=== PATIENT | male | born 1975 | race Caucasian/White ===

== ENCOUNTER 2016-07-06 21:27 | Inpatient (IN) | payer OTHER ==
[~2016-07-06] VITALS: Ht 188 cm; Wt 106.2 kg
[2016-07-06 21:41] LABS: BASOPHILS % (AUTO) 1 % (0-10); EOSINOPHILS # (AUTO) 0.1 10^3/uL (0.0-0.3); EOSINOPHILS % (AUTO) 1 % (0-10); LYMPHOCYTES # (AUTO) 1.3 X 10^3 (1.0-4.0); LYMPHOCYTES % (AUTO) 21 % (12-44); MEAN CORPUSCULAR HEMOGLOBIN 30 PG (25-34); MEAN CORPUSCULAR HGB CONC 36 G/DL (32-36); MEAN CORPUSCULAR VOLUME 81 FL (80-99); MEAN PLATELET VOLUME 10.4 FL (7.4-10.4); MONOCYTES # (AUTO) 0.6 X 10^3 (0.0-1.0); MONOCYTES % (AUTO) 10 % (0-12); NEUTROPHILS # (AUTO) 4.2 X 10^3 (1.8-7.8); NEUTROPHILS % (AUTO) 67 % (42-75); PLATELET COUNT 237 10^3/uL (130-400); RED BLOOD COUNT 5.74 10^6/uL (4.35-5.85); RED CELL DISTRIBUTION WIDTH 12.5 % (10.0-14.5); WHITE BLOOD COUNT 6.2 10^3/uL (4.3-11.0)
[2016-07-06] MEDS ORDERED: ASPIRIN 81 MG CHEW (CHILDREN'S ASA) PO ONE (21:45)
[2016-07-06] MEDS ORDERED: NS IV 1000 ML 1,000 ML IV ONE (21:52)
[2016-07-06 22:00] LABS: INR 0.9 (0.8-1.4); PROTHROMBIN TIME PATIENT 12.3 SEC (12.2-14.7)
[2016-07-06 22:04] LABS: ALANINE AMINOTRANSFERASE 106 U/L (0-55); ALBUMIN 4.6 G/DL (3.2-4.5); ANION GAP 12 MMOL/L (5-14); ASPARTATE AMINO TRANSFERASE 48 U/L (5-34); BILIRUBIN,TOTAL 0.5 MG/DL (0.1-1.0); BLOOD UREA NITROGEN 10 MG/DL (7-18); BUN/CREATININE RATIO 8; CALCIUM 9.4 MG/DL (8.5-10.1); CARBON DIOXIDE 26 MMOL/L (21-32); CHLORIDE 95 MMOL/L (98-107); CREATININE SERUM 1.22 MG/DL (0.60-1.30); GFR ESTIMATED > 60; MAGNESIUM 2.4 MG/DL (1.8-2.4); POTASSIUM 4.3 MMOL/L (3.6-5.0); SODIUM 133 MMOL/L (135-145); TOTAL PROTEIN 7.2 G/DL (6.4-8.2)
--- NOTE | 2016-07-06 22:04 | Diagnostic Imaging Report ---
INDICATION: Chest pain COMPARISON: None FINDINGS: Single frontal view of the chest is obtained. Heart size is normal. The pulmonary vessels appear unremarkable. There is no pneumothorax, mediastinal widening or pleural fluid demonstrated. The lungs are clear. IMPRESSION: Negative chest Dictated by: Dictated on workstation # [id number]
[2016-07-06 22:08] LABS: GLUCOSE 491 MG/DL (70-105)
[2016-07-06 22:10] LABS: MYOGLOBIN SERUM 37.3 NG/ML (10.0-92.0)
[2016-07-06] MEDS ORDERED: inSUlin (REGULAR) HUMAN 1 UNIT/0.01 ML (CHARGE PER UNIT) IV ONE (22:15)
--- NOTE | 2016-07-06 22:59 | ED Chest Pain ---
General Chief Complaint: Chest Pain Stated Complaint: CHEST PAIN Nursing Triage Note: Amb to ED 8 as arrived POV from [facility]. Chest Pain c/o since 1930 after eating cereal an hr prior. Sx nausea and vomited twice about an hr after chest pain. No PCP. No medical hx Nursing Sepsis Screen: No Definite Risk Source: patient Exam Limitations: no limitations History of Present Illness Time seen by provider: 21:31 Initial Comments This gentleman presents to emergency room with complaints of chest pain intermittently since 19:30. He describes it "like being hit in the chest". It improves with deep breathing and is worse with activity. He was sitting watching TV at onset. He vomited 2. He had a pain in his left arm and numbness between the shoulder blades. He is asymptomatic on assessment except for numbness between the shoulders. He denies smoking history but does chew tobacco. He rarely drinks alcohol. He reports the chest pain started before the nausea and vomiting. Location is upper central and was rated as 6/10 at its worst. He has no known health problems but is noted to be significantly hypertensive and tachycardic on arrival. Allergies and Home Medications Allergies Coded Allergies: No Known Drug Allergies (Unverified , 07/06/16) Home Medications No Active Prescriptions or Reported Meds Review of Systems Constitutional: no symptoms reported EENTM: No Symptoms Reported Respiratory: No Symptoms Reported Cardiovascular: See HPI Gastrointestinal: See HPI Genitourinary: No Symptoms Reported Musculoskeletal: see HPI Skin: no symptoms reported Psychiatric/Neurological: No Symptoms Reported Endocrine: No Symptoms Reported Past Qpqavkc-Tmfunp-Vvutwi Hx Patient Social History Alcohol Use: Occasionally Uses Recreational Drug Use: No Smoking Status: Never a Smoker Type Used: Smokeless Tobacco Recent Foreign Travel: No Contact w/Someone Who Travel: No Recent Infectious Disease Expo: No Recent Hopitalizations: No Physical Abuse Screen: No Sexual Abuse: No Seasonal Allergies Seasonal Allergies: No Surgeries HX Surgeries: No Respiratory Hx Respiratory Disorders: No Cardiovascular Hx Cardiac Disorders: No Neurological Hx Neurological Disorders: No Reproductive System Hx Reproductive Disorders: No Genitourinary Hx Genitourinary Disorders: No Gastrointestinal Hx Gastrointestinal Disorders: No Musculoskeletal Hx Musculoskeletal Disorders: No Endocrine Hx Endocrine Disorders: No HEENT HX ENT Disorders: No Cancer Hx Cancer: No Psychosocial Hx Psychiatric Problems: No Integumentary HX Skin/Integumentary Disorder: No Blood Transfusions Hx Blood Disorders: No Family Medical History Significant Family History: No Pertinent Family Hx Physical Exam Vital Signs Vital Sign - Last 12Hours Capillary Refill : Less Than 3 Seconds General Appearance: No Apparent Distress WD/WN Obese HEENT: PERRL/EOMI Normal ENT Inspection Other (oropharynx somewhat dry) Neck: Normal Inspection Supple Respiratory: Chest Non Tender Lungs Clear Normal Breath Sounds No Accessory Muscle Use No Respiratory Distress Cardiovascular: No Edema No Murmur Normal Peripheral Pulses Tachycardia ( regular) Gastrointestinal: Normal Bowel Sounds Non Tender Soft Extremity: Normal Inspection Non Tender No Calf Tenderness No Pedal Edema Neurologic/Psychiatric: Alert Oriented x3 No Motor/Sensory Deficits Normal Mood/Affect home health cna II-XII Norm as Tested Skin: Normal Color Warm/Dry Progress/Results/Core Measures Results/Orders Lab Results Laboratory Tests Test 07/06/16 21:30 07/06/16 22:46 Range/Units Activated Partial Thromboplast Time 25 24-35 SEC Alanine Aminotransferase (ALT/SGPT) 106 H 0-55 U/L Albumin 4.6 H 3.2-4.5 G/DL Alkaline Phosphatase 101 40-136 U/L Anion Gap 12 5-14 MMOL/L Aspartate Amino Transf (AST/SGOT) 48 H 5-34 U/L BUN/Creatinine Ratio 8 Basophils # (Auto) 0.0 0.0-0.1 10^3/uL Basophils (%) (Auto) 1 0-10 % Blood Urea Nitrogen 10 7-18 MG/DL Calcium Level 9.4 8.5-10.1 MG/DL Carbon Dioxide Level 26 21-32 MMOL/L Chloride Level 95 L 98-107 MMOL/L Creatinine 1.22 0.60-1.30 MG/DL D-Dimer < 0.27 0.00-0.49 UG/ML Eosinophils # (Auto) 0.1 0.0-0.3 10^3/uL Eosinophils (%) (Auto) 1 0-10 % Estimat Glomerular Filtration Rate > 60 Glucose Level 491 *H 70-105 MG/DL Hematocrit 47 40-54 % Hemoglobin 17.0 13.3-17.7 G/DL INR Comment 0.9 0.8-1.4 Lymphocytes # (Auto) 1.3 1.0-4.0 X 10^3 Lymphocytes (%) (Auto) 21 12-44 % Magnesium Level 2.4 1.8-2.4 MG/DL Mean Corpuscular Hemoglobin 30 25-34 PG Mean Corpuscular Hemoglobin Concent 36 32-36 G/DL Mean Corpuscular Volume 81 80-99 FL Mean Platelet Volume 10.4 7.4-10.4 FL Monocytes # (Auto) 0.6 0.0-1.0 X 10^3 Monocytes (%) (Auto) 10 0-12 % Myoglobin 37.3 10.0-92.0 NG/ML Neutrophils # (Auto) 4.2 1.8-7.8 X 10^3 Neutrophils (%) (Auto) 67 42-75 % Platelet Count 237 130-400 10^3/uL Potassium Level 4.3 3.6-5.0 MMOL/L Prothrombin Time 12.3 12.2-14.7 SEC Red Blood Count 5.74 4.35-5.85 10^6/uL Red Cell Distribution Width 12.5 10.0-14.5 % Sodium Level 133 L 135-145 MMOL/L TSH [place] Testing 0.75 0.35-4.94 UIU/ML Total Bilirubin 0.5 0.1-1.0 MG/DL Total Protein 7.2 6.4-8.2 G/DL Troponin I < 0.30 <0.30 NG/ML White Blood Count 6.2 4.3-11.0 10^3/uL Glucometer 265 H 70-110 MG/DL My Orders Orders-BERNARDO DALEY MD Cbc With Automated Diff (07/06/16 21:36) Magnesium (07/06/16 21:36) Chest 1 View, Ap/Pa Only (07/06/16 21:36) Ekg Tracing (07/06/16 21:36) Cardiac Profile 1 (07/06/16 21:36) Comprehensive Metabolic Panel (07/06/16 21:36) Myoglobin Serum (07/06/16 21:36) Protime With Inr (07/06/16 21:36) Partial Thromboplastin Time (07/06/16 21:36) O2 (07/06/16 21:36) Monitor-Rhythm Ecg Trace Only (07/06/16 21:36) Lipid Panel (07/07/16 06:00) Aspirin Chewable Tablet (Baby Aspirin Ch (07/06/16 21:45) Saline Lock/Iv-Start (07/06/16 21:36) Fibrin Degradation Products (07/06/16 21:52) Thyroid Analyzer (07/06/16 21:52) Ns Iv 1000 Ml (Sodium Chloride 0.9%) (07/06/16 21:52) Insulin (Regular) Human (Humulin R (Per (07/06/16 22:15) Metoprolol Tartrate (Ir) Tab (Lopressor (07/06/16 23:00) Enoxaparin Injection (Lovenox Injection) (07/06/16 23:00) Hemoglobin A1c (07/06/16 22:52) Medications Given in ED Current Medications Medications Dose Ordered Sig/Cayden Route Start Time Stop Time Status Last Admin Dose Admin Aspirin 324 mg 324 mg ONCE ONCE PO 07/06/16 21:45 07/06/16 21:46 DC 07/06/16 21:44 324 MG Enoxaparin Sodium 100 mg ONCE ONCE SC 07/06/16 23:00 07/06/16 23:01 DC 07/06/16 22:54 100 MG Insulin Human Regular 5 unit ONCE ONCE IV 07/06/16 22:15 07/06/16 22:16 DC 07/06/16 22:15 5 UNIT Metoprolol Tartrate 25 mg ONCE ONCE PO 07/06/16 23:00 07/06/16 23:01 DC 07/06/16 22:54 25 MG Sodium Chloride 1,000 ml @ 0 mls/hr Q0M ONCE IV 07/06/16 21:52 07/06/16 21:53 DC 07/06/16 22:04 999 MLS/HR Vital Signs/I&O Vital Sign - Last 12Hours 07/06/16 07/06/16 07/06/16 21:27 21:27 22:54 Temp 98.4 98.4 Pulse 101 Resp 16 B/P 164/126 Pulse Ox 98 O2 Delivery Room Air Room Air Blood Pressure Mean: 139 Point of Care Testing Finger Stick Blood Glucose: 265 Blood Glucose Action Taken: reported to Dr Daley Progress Note : Progress Note patient had no further chest pain during his ER visit. He was administered aspirin. He was found to have new onset diabetes with significant hyperglycemia. He was administered 5 units of insulin by IV route along with a liter of IV fluids which decreased his blood sugar to 265. He received Lopressor 25 mg orally and a therapeutic dose of Lovenox as advised by Dr. Stiles. Heart rate and blood pressure were improving during his ER stay. He was admitted with the chest pain protocol orders set. He was felt to be hypovolemic as his mouth was dry and he was tachycardic. He likely had diuresed due to his hyperglycemia. ECG Initial ECG Impression Date: Jul 06, 2016 Initial ECG Impression Time: 21:39 Initial ECG Rate: 100 Initial ECG Rhythm: S.Tach Diagnostic Imaging Diagonstic Imaging: Xray Plain Films/CT/US/NM/MRI: chest Comments NAME: [facility] REC#: [id number] PT STATUS: REG ER : 1975 PHYSICIAN: BERNARDO DALEY MD ADMIT DATE: 07/06/16/ER Signed Date of Exam: 07/06/16 CHEST 1 VIEW, AP/PA ONLY INDICATION: Chest pain COMPARISON: None FINDINGS: Single frontal view of the chest is obtained. Heart size is normal. The pulmonary vessels appear unremarkable. There is no pneumothorax, mediastinal widening or pleural fluid demonstrated. The lungs are clear. IMPRESSION: Negative chest Dictated by: Dictated on workstation # [id number] Dict: 07/06/[id number] Trans: 07/06/162204 [facility] [phone] Interpreted by: TIANA AVALOS DO Electronically signed by:TIANA AVALOS DO 07/06/162206 Departure Communication Time/Spoke to Admitting Phy: 22:[address] Jaeger Time/Spoke to Consulting Physi: 22:40 Communication/Consulting Dr. Stiles Impression Impression: Primary Impression: Chest pain Qualified Code: R07.9 - Chest pain, unspecified Additional Impressions: Hypertensive urgency Diabetes mellitus, new onset Hyperglycemia Hypovolemia Disposition: ADMITTED INPATIENT Condition: Improved Decision to Admit Reason: Admit from ER (General) Decision to Admit/Date: Jul 06, 2016 Time/Decision to Admit Time: 22:30 Departure-Patient Inst. Scripts No Active Prescriptions or Reported Meds BERNARDO DALEY MD Jul 06, 2016 22:59
[2016-07-06] MEDS ORDERED: ENOXAPARIN 100 MG/1 ML (LOVENOX) SYR SC ONE (23:00)
[2016-07-06] MEDS ORDERED: meTOprolol TARTRATE 25 MG (LOPRESSOR) TABLET PO ONE (23:00)
[2016-07-06 23:30] VITALS: BP 142/111
[2016-07-06 23:35] VITALS: BP 142/111
[2016-07-06 23:45] VITALS: BP 144/104
[2016-07-06] MEDS ORDERED: CATHETER FLUSH 10 ML SYR IV PRN (23:45)
[2016-07-06] MEDS ORDERED: NITROGLYCERIN SUBLINGUAL 0.4 MG TAB (NITROSTAT) SL PRN (23:45)
[2016-07-06] MEDS ORDERED: ONDANSETRON 4 MG/2 ML (SDV) Z0FRAN IV PRN (23:45)
[2016-07-07] VITALS (27 sets, daily range): BP systolic 100–156; BP diastolic 63–112
[2016-07-07] MEDS: NS IV 1000 ML 1,000 ML IV SCH ×4 (00:02→18:04)
[2016-07-07 04:02] LABS: ANION GAP 9 MMOL/L (5-14); BLOOD UREA NITROGEN 8 MG/DL (7-18); BUN/CREATININE RATIO 9; CALCIUM 8.4 MG/DL (8.5-10.1); CARBON DIOXIDE 26 MMOL/L (21-32); CHLORIDE 101 MMOL/L (98-107); CREATINE KINASE 174 U/L (30-200); CREATININE SERUM 0.87 MG/DL (0.60-1.30); GFR ESTIMATED > 60; GLUCOSE 216 MG/DL (70-105); POTASSIUM 3.9 MMOL/L (3.6-5.0); SODIUM 136 MMOL/L (135-145)
[2016-07-07 04:14] LABS: TROPONIN I 2.56 NG/ML (<0.30)
[2016-07-07 04:24] LABS: CHOLESTEROL 200 MG/DL (< 200); DIRECT LDL 147 MG/DL (1-129); TRIGLYCERIDES 202 MG/DL (<150); VLDL CHOLESTEROL 40 MG/DL (5-40)
[2016-07-07] MEDS: CATHETER FLUSH 10 ML SYR IV SCH ×3 (06:00→21:02)
[2016-07-07] MEDS: inSUlin (REGULAR) HUMAN 1 UNIT/0.01 ML (CHARGE PER UNIT) SC SCH ×4 (06:00→20:51)
[2016-07-07] MEDS ORDERED: FLU TRIvalent (5 YOA+) 2016-17 (AFLURIA) 0.5 ML IM ONE (07:15)
[2016-07-07] MEDS: meTOprolol TARTRATE 25 MG (LOPRESSOR) TABLET PO SCH ×2 (07:49→20:52)
--- NOTE | 2016-07-07 08:44 | Consultation-Cardiology ---
HPI-Cardiology Cardiology Consultation Date of Consultation 07/07/16 Date of Admission Indication: chest pain HPI 40-year-old gentleman with no significant past medical history, was in his usual state of health until yesterday evening when he started having recurrent episodes of chest pain described it as dull achiness in the upper retrosternal area radiating to the back and shoulder. Continue to have waxing and waning pain until they came to the emergency room, patient will is feeling better at this time, EKG did not show any acute changes. He was noted to have elevated troponin level. Denied any nausea or vomiting, had slight diaphoresis. No syncope or near syncopal episodes, no similar episodes in the past. Home Medications & Allergies Allergies: Coded Allergies: No Known Drug Allergies (Unverified , 07/06/16) Home Medication List Reviewed: Yes does not take any medication UXC-Apqlju-Wmpfwj Hx Patient Social History Alcohol Use: Occasionally Uses Recreational Drug Use: No Smoking Status: Former Smoker Type Used: Cigarettes, Smokeless Tobacco Recent Foreign Travel: No Recent Infectious Disease Expo: No Recent Hopitalizations: No Physical Abuse Screen: No Sexual Abuse: No Past Medical History no known past medical or surgical history Family Medical History Significant Family History: No Pertinent Family Hx Family Medical Hx patient is adopted, no known family history Family History: Not obtainable due to adoption Constitutional: see HPINo chills, diaphoresisNo dizziness, No fever, No malaise, No weakness, No weight gain, No weight loss, No other EENTM: no symptoms reported see HPI Respiratory: no symptoms reported see HPI Cardiovascular: see HPI chest painNo edema, No Hx of Intervention, No palpitations, No syncope, No vascular heart diseas, No other Gastrointestinal: no symptoms reported see HPI Genitourinary: no symptoms reported see HPI Musculoskeletal: no symptoms reported see HPI Skin: no symptoms reported see HPI Psychiatric/Neurological: No Symptoms Reported See HPI Reviewed Test Results Reviewed Test Results Lab Laboratory Tests Test 07/06/16 21:30 07/06/16 22:46 07/07/16 03:30 07/07/16 05:52 Range/Units Activated Partial Thromboplast Time 25 24-35 SEC Alanine Aminotransferase (ALT/SGPT) 106 H 0-55 U/L Albumin 4.6 H 3.2-4.5 G/DL Alkaline Phosphatase 101 40-136 U/L Anion Gap 12 9 5-14 MMOL/L Aspartate Amino Transf (AST/SGOT) 48 H 5-34 U/L BUN/Creatinine Ratio 8 9 Basophils # (Auto) 0.0 0.0-0.1 10^3/uL Basophils (%) (Auto) 1 0-10 % Blood Urea Nitrogen 10 8 7-18 MG/DL Calcium Level 9.4 8.4 L 8.5-10.1 MG/DL Carbon Dioxide Level 26 26 21-32 MMOL/L Chloride Level 95 L 101 98-107 MMOL/L Creatinine 1.22 0.87 0.60-1.30 MG/DL D-Dimer < 0.27 0.00-0.49 UG/ML Eosinophils # (Auto) 0.1 0.0-0.3 10^3/uL Eosinophils (%) (Auto) 1 0-10 % Estimat Glomerular Filtration Rate > 60 > 60 Glucose Level 491 *H 216 H 70-105 MG/DL Hematocrit 47 40-54 % Hemoglobin 17.0 13.3-17.7 G/DL Hemoglobin A1c 9.8 H 4.5-6.2 % INR Comment 0.9 0.8-1.4 Lymphocytes # (Auto) 1.3 1.0-4.0 X 10^3 Lymphocytes (%) (Auto) 21 12-44 % Magnesium Level 2.4 1.8-2.4 MG/DL Mean Corpuscular Hemoglobin 30 25-34 PG Mean Corpuscular Hemoglobin Concent 36 32-36 G/DL Mean Corpuscular Volume 81 80-99 FL Mean Platelet Volume 10.4 7.4-10.4 FL Monocytes # (Auto) 0.6 0.0-1.0 X 10^3 Monocytes (%) (Auto) 10 0-12 % Myoglobin 37.3 10.0-92.0 NG/ML Neutrophils # (Auto) 4.2 1.8-7.8 X 10^3 Neutrophils (%) (Auto) 67 42-75 % Platelet Count 237 130-400 10^3/uL Potassium Level 4.3 3.9 3.6-5.0 MMOL/L Prothrombin Time 12.3 12.2-14.7 SEC Red Blood Count 5.74 4.35-5.85 10^6/uL Red Cell Distribution Width 12.5 10.0-14.5 % Sodium Level 133 L 136 135-145 MMOL/L TSH [place] Testing 0.75 0.35-4.94 UIU/ML Total Bilirubin 0.5 0.1-1.0 MG/DL Total Protein 7.2 6.4-8.2 G/DL Troponin I < 0.30 2.56 *H <0.30 NG/ML White Blood Count 6.2 4.3-11.0 10^3/uL Glucometer 265 H 169 H 70-110 MG/DL Cholesterol Level 200 < 200 MG/DL HDL Cholesterol 28 L 40-60 MG/DL LDL Cholesterol Direct 147 H 1-129 MG/DL Total Creatine Kinase 174 30-200 U/L Triglycerides Level 202 H <150 MG/DL VLDL Cholesterol 40 5-40 MG/DL Physical Exam Vital Signs Vital Sign - Last 12Hours Capillary Refill : Less Than 3 Seconds General Appearance: No Apparent Distress WD/WN Eyes: Bilateral Eye EOMI, Bilateral Eye Normal Inspection, Bilateral Eye PERRL HEENT: PERRL/EOMI TMs Normal Normal ENT Inspection Pharynx Normal Neck: Full Range of Motion Normal Inspection Non Tender Supple Carotid Bruit Respiratory: Chest Non Tender Lungs Clear Normal Breath Sounds No Accessory Muscle Use No Respiratory Distress Cardiovascular: Regular Rate, Rhythm No Edema No Gallop No JVD No Murmur Normal Peripheral Pulses Gastrointestinal: Normal Bowel Sounds No Organomegaly No Pulsatile Mass Non Tender Soft Back: Normal Inspection No CVA Tenderness No Vertebral Tenderness Extremity: Normal Capillary Refill Normal Inspection Normal Range of Motion Non Tender No Calf Tenderness No Pedal Edema Neurologic/Psychiatric: Alert Oriented x3 No Motor/Sensory Deficits Normal Mood/Affect Skin: Normal Color Warm/Dry Lymphatic: No Adenopathy A/P-Cardiology Admission Diagnosis Chest pain nonspecific etiology Diabetes mellitus Tobaccoism Shortness of breath Assessment/Plan Chest pain nonspecific etiology, atypical in presentation, patient had no acute EKG changes, had elevated troponin level. Had a long discussion with the patient. The patient was offered a stress test versus cardiac catheterization, he is concerned about the elevated troponin and his significant chest pain that occurred yesterday. Understand cardiac catheterization, understand all the risks and benefits and prefer to proceed with a cardiac catheterization. Shortness of breath, during chest pain, reporting improvement at this time Diabetes mellitus, patient does not have history of diabetes, noted to have significant hyperglycemia, managed by primary care physician. Tobacco use product, patient chewed tobacco, educated on avoiding tobacco products. Clinical Quality Measures AMI/AHF: ASA po Prior to arrival: No DVT/VTE Risk/Contraindication: Risk Factor Score Per Nursin RFS Level Per Nursing on Admit: 1=Low/No VTE PPX LEONARDO ROSS MD Jul 07, 2016 08:44
[2016-07-07] MEDS ORDERED: NS IV 1000 ML 1,000 ML IV SCH (08:45)
--- NOTE | 2016-07-07 08:46 | Cardiac Procedure Note-CS/ASA ---
Pre-Procedure Note Pre-Op Procedure Note H&P Reviewed The H&P was reviewed, patient examined and no changes noted. Date H&P Reviewed: Jul 07, 2016 Time H&P Reviewed: 08:45 Conscious Sedation Pre-Proced Time Reviewed: 08:45 ASA Class: 3 Airway Mallampati Classification: ([place] appropriate class) I. II. III, IV Lungs Heart ASA score ASA 1: a normal healthy patient ASA 2: a patient with a mild systemic disease (mid diabetes, controlled hypertension, obesity x ASA 3: a patient with a severe systemic disease that limits activity (angina , COPD, prior Myocardial infarction) ASA 4: a patient with an incapacitating disease that is a constant threat to life (CHF, renal failure) ASA 5: a moribund patient not expected to survive 24 hrs. (ruptured aneurysm) ASA 6: a declared brain patient whose organs are being harvested. For emergent operations, add the letter E after the classification Grade 3 Sedation Plan: Analgesia, Amnesia, Plan communicated to team members, Discussed options with patient/fam, Discussed risks with patient/fam Note The patient is an appropriate candidate to undergo the planned procedure, sedation, and anesthesia. The patient immediately re-assessed prior to indication. LEONARDO ROSS MD Jul 07, 2016 08:46
[2016-07-07] MEDS ORDERED: ASPIRIN E.C. 325 MG (ECOTRIN) TABLET PO SCH (09:00)
--- NOTE | 2016-07-07 09:29 | History & Physical-Hospitalist ---
LESLY PERES MED STUDENT 07/07/16 0929: HPI History of Present Illness: HPI/Chief Complaint CC: chest pain HPI: Mr. Plunkett is a 40yoM with no significant PMH who was admitted overnight for chest pain and elevated troponin. He started experiencing a sharp 7/10 chest pain that came and went, with no association with activity at 1930 last night. He did not attempt to take any medications. 30 minutes after this he became nauseas and had non-bloody emesis one time. Following this he called his parents who brought him to the ED from [place]. He has never had similar symptoms before, and states he has been healthy. He was given aspirin in the ED. His labs were significant for a troponin of 2.56 and A1C >9. He has not seen a physician since 2002 when he broke his foot. He does not currently have a PCP. He does not use any particular pharmacy since he does not take medications, but he would like future meds sent to [facility] in [place]. He currently has a job at a [employer], but does not have insurance. He will need assistance with future prescriptions following this hospital stay. Source: patient Exam Limitations: no limitations Date Seen 07/07/16 Attending Physician Ray Jaeger MD PCP No,Local Physician Referring Physician Date of Admission Jul 07, 2016 at 08:20 Home Medications & Allergies Home Medications Reviewed patient Home Medication Reconciliation Form Allergies Coded Allergies: No Known Drug Allergies (Unverified , 07/06/16) Past Jncvngr-Tpdlko-Gjcaug Hx Patient Social History Marrital Status: single Employed/Student: employed ([employer]) Alcohol Use: Occasionally Uses (1 drink every 6 months) Recreational Drug Use: No Smoking Status: Former Smoker Type Used: Cigarettes, Smokeless Tobacco (currently uses smokeless tobacco) Physical Abuse Screen: No Sexual Abuse: No Recent Foreign Travel: No Contact w/other who traveled: No Recent Hopitalizations: No Recent Infectious Disease Expo: No Seasonal Allergies Seasonal Allergies: No Surgeries HX Surgeries: No Respiratory Hx Respiratory Disorders: No Cardiovascular Hx Cardiovascular Disorders: No Neurological Hx Neurological Disorders: No Reproductive System Hx Reproductive Disorders: No Genitourinary Hx Genitourinary Disorders: No Gastrointestinal Hx Gastrointestinal Disorders: No Musculoskeletal Hx Musculoskeletal Disorders: Yes Musculoskeletal Disorders: Fractures (foot fracture 2002) Endocrine Hx Endocrine Disorders: No HEENT HX ENT Disorders: No Cancer Hx Cancer: No Psychosocial Hx Psychiatric Problems: No Integumentary HX Skin/Integumentary Disorder: No Blood Transfusions Hx Blood Disorders: No Family Medical History Significant Family History: No Pertinent Family Hx (adopted and unknown) Family Hx: Not obtainable due to adoption Review of Systems Constitutional: No chills, No diaphoresis, No fever EENTM: no symptoms reported Respiratory: No dyspnea on exertion, No short of breath Cardiovascular: chest pain Gastrointestinal: No abdominal pain, No constipation, No diarrhea, nausea vomiting Genitourinary: No dysuria, No frequency, No hematuria Musculoskeletal: No back pain, No joint swelling, No muscle pain Skin: no symptoms reported Psychiatric/Neurological: No Symptoms Reported All Other Systems Reviewed Negative Unless Noted: Yes Physical Exam Physical Exam Vital Signs Vital Sign - Last 12Hours Capillary Refill : Less Than 3 Seconds General Appearance: No Apparent Distress WD/WN HEENT: PERRL/EOMI Normal ENT Inspection Pharynx Normal Neck: Full Range of Motion Normal Inspection Non Tender Supple Respiratory: Chest Non Tender Lungs Clear Normal Breath Sounds No Accessory Muscle Use No Respiratory Distress Cardiovascular: Regular Rate, Rhythm No Edema No Gallop No JVD No Murmur Normal Peripheral Pulses Gastrointestinal: Normal Bowel Sounds No Organomegaly Non Tender Soft Rectal: Deferred Back: Normal Inspection No CVA Tenderness Extremity: Normal Capillary Refill Normal Range of Motion Non Tender No Calf Tenderness Neurologic/Psychiatric: Alert Oriented x3 No Motor/Sensory Deficits Normal Mood/Affect Skin: Normal Color Warm/Dry Lymphatic: No Adenopathy Results Results/Procedures Lab Laboratory Tests 07/06/16 21:30 07/07/16 03:30 Radiology chest xray: Negative chest Assessment/Plan Admission Diagnosis NSTEMI, DM type II Assessment and Plan 40yoM with previous unknown medical history with NSTEMI and new diagnosed DM admitted to ICU. 1. NSTEMI -troponin 2.56, negative EKG, chest pain stopped at 0000. -patient hemodynamically stable, give IVF as needed -Aspirin given in ED -going [facility] today with Dr. Stiles, cardiology following -oxygen as needed, morphine and nitro as needed for chest pain -will likely need statin therapy, beta dashawn, and antiplatelet therapy before discharge 2. DM II -newly diagnosed this admission -will use insulin with correction factor until not NPO -will begin low dose glyburide as outpatient -will set patient up with PCP for further management of diabetes 3. Socioeconomic status -lives alone and is independent -patient currently without insurance, but willing to obtain insurance soon -patient might have difficulty affording multiple medications as an outpatient -will need to use generic brands as often as possible -social work consult needed 4. Smokeless tobacco use Clinical Quality Measures AMI/AHF: ASA po Prior to arrival: No DVT/VTE Risk/Contraindication: Risk Factor Score Per Nursin RFS Level Per Nursing on Admit: 1=Low/No VTE PPX KENDY TORREZ DO 07/07/16 1054: HPI History of Present Illness: HPI/Chief Complaint Noted above information and confirmed by patient. Source: patient Exam Limitations: no limitations Home Medications & Allergies Allergies Coded Allergies: No Known Drug Allergies (Unverified , 07/06/16) Past Yszweln-Eseico-Dbloqe Hx Patient Social History Marrital Status: single Employed/Student: employed ([employer]) Alcohol Use: Occasionally Uses (1 drink every 6 months) Surgeries HX Surgeries: No Respiratory Hx Respiratory Disorders: No Cardiovascular Hx Cardiovascular Disorders: No Neurological Hx Neurological Disorders: No Genitourinary Hx Genitourinary Disorders: No Gastrointestinal Hx Gastrointestinal Disorders: No Musculoskeletal Hx Musculoskeletal Disorders: No Endocrine Hx Endocrine Disorders: No HEENT HX ENT Disorders: No Loss of Vision: Denies Cancer Hx Cancer: No Psychosocial Hx Psychiatric Problems: No Integumentary HX Skin/Integumentary Disorder: No Family Medical History Significant Family History: No Pertinent Family Hx (adopted and unknown) Family Hx: Not obtainable due to adoption Review of Systems Constitutional: see HPI EENTM: no symptoms reported Respiratory: no symptoms reported Cardiovascular: chest pain Gastrointestinal: nausea vomiting Genitourinary: no symptoms reported Musculoskeletal: no symptoms reported Skin: no symptoms reported Psychiatric/Neurological: No Symptoms Reported All Other Systems Reviewed Negative Unless Noted: Yes Physical Exam Physical Exam Vital Signs Vital Sign - Last 12Hours General Appearance: No Apparent Distress WD/WN Eyes: Bilateral Eye Normal Inspection, Bilateral Eye PERRL HEENT: PERRL/EOMI Normal ENT Inspection Pharynx Normal Neck: Full Range of Motion Normal Inspection Non Tender Supple Carotid Bruit Respiratory: Chest Non Tender Lungs Clear Normal Breath Sounds No Accessory Muscle Use No Respiratory Distress Cardiovascular: Regular Rate, Rhythm No Edema No Gallop No JVD No Murmur Normal Peripheral Pulses Gastrointestinal: Normal Bowel Sounds No Organomegaly No Pulsatile Mass Non Tender Soft Back: Normal Inspection No CVA Tenderness No Vertebral Tenderness Extremity: Normal Capillary Refill Normal Inspection Normal Range of Motion Non Tender No Calf Tenderness No Pedal Edema Neurologic/Psychiatric: Alert Oriented x3 No Motor/Sensory Deficits Normal Mood/Affect Skin: Normal Color Warm/Dry Lymphatic: No Adenopathy Results Results/Procedures Lab Laboratory Tests 07/06/16 21:30 07/07/16 03:30 Assessment/Plan Admission Diagnosis NSTEMI New onset DM 9.8 hga1c HTN new onset Assessment and Plan Cardiac cath per Dr Stiles DM education Glyburide 1.25mg BID Establish with PCP for f/u LESLY PERES STUDENT Jul 07, 2016 09:29 KENDY TORREZ DO Jul 07, 2016 10:54
[2016-07-07] MEDS ORDERED: NAPR220T66 PO (09:45)
[2016-07-07] MEDS ORDERED: LIDOCAINE 1% INJ 20 ML (XYLOCAINE) VIAL ONE (10:50)
[2016-07-07] MEDS ORDERED: NS IV 1000 ML 1,000 ML ONE (10:50)
[2016-07-07] MEDS ORDERED: HEParin (CATH LAB) 2,000 ML IV ONE (10:50)
[2016-07-07] MEDS ORDERED: MIDAZOLAM 5 MG/5 ML (VERSED) VIAL ONE (11:23)
[2016-07-07] MEDS ORDERED: fentaNYL INJECTION 100 MCG/2 ML AMP ONE (11:23)
[2016-07-07] MEDS ORDERED: EPTIFIBATIDE DRIP 100 ML IV ONE (12:03)
[2016-07-07] MEDS ORDERED: HEParin 1000 UNIT/ML (10ML VIAL) FOR BOLUS ONE (12:03)
[2016-07-07] MEDS ORDERED: EPTIFIBATIDE BOLUS 10 ML IV ONE ×2 (12:04→12:09)
[2016-07-07] MEDS ORDERED: NITROGLYCERIN DRIP 25 MG/D5W 250 ML IV ONE (12:11)
[2016-07-07] MEDS ORDERED: TICAGRELOR 90 MG TABLET (BRILINTA) PO ONE (12:22)
[2016-07-07] MEDS ORDERED: ASPIRIN 325 MG (5 GR) TABLET ONE (12:22)
--- NOTE | 2016-07-07 12:35 | Cardiology Post Procedure Note ---
Post-Procedure Note Post-Op Procedure Note Procedure Start Date: Jul 07, 2016 Procedure Start Time: 12:33 Name of Procedure: LHC/Stent Findings/Procedure Note Subtotal occlusion to LCX, 3.0x15 Alpine stent up to 3.25 with excellent results Anesthesia Type: Conscious Sedation Post-Operative Diagnosis Post-operative diagnosis: CAD LEONARDO CEDILLO MD Jul 07, 2016 12:34
[2016-07-07] MEDS ORDERED: PATIENT MAY USE OWN MEDS, ALL PO SCH (12:45)
--- NOTE | 2016-07-07 13:24 | CARDIAC CATHETERIZATION ---
PROCEDURE PHYSICIAN: LEONARDO ROSS DATE OF PROCEDURE: 07/07/2016 REFERRING PHYSICIAN: Dr. Rashid Mr. Plunkett is a 40-year-old gentleman admitted with acute chest pain. He had an elevated troponin level. He was scheduled for left heart catheterization. PROCEDURE NOTE: After explaining the procedure to patient, all pros and cons were explained. All questions were answered. The patient signed a consent, then he was placed on the cardiac catheterization laboratory. Combination of right and left James catheter were used to access the right and left coronary system. Multiple views were obtained. Pigtail catheter advanced to the left ventricular cavity. Pressure was measured. Left ventriculogram was done. Pullback LV to aorta was done. At that point, the patient was noted to have severe stenosis in the circumflex artery. The patient noted to have subtotal occlusion in the mid circumflex artery. He was given a bolus of 5000 heparin, double bolus of Integrilin and Integrilin drip was started. FL 4.0 guide was advanced to the left coronary system. BMW wire was advanced through the circumflex artery and parked distally. Then a predilatation with Emerge balloon 3.0 x 15 mm with excellent results. Then I proceeded with placement of a stent using Xience Alpine 3.0 x 15 mm, expanded to 3.25 mm with excellent results. Distal to the stent there is an area of mild to moderate stenosis about 30% to 40% stenosis. Balloon angioplasty was done. At that point angiogram showed excellent results. Sheath was removed. Mynx device deployed. Hemostasis achieved. FINDINGS: HEMODYNAMICS: LV pressure 121/16, end-diastolic pressure of 16, aortic pressure 122/83, mean of 102. No significant gradient across the aortic valve. ANATOMY: 1. Left main coronary artery is bifurcating to left anterior descending and left circumflex artery with no obstructive disease. 2. The left anterior descending artery is moderate in size with no obstructive disease. 3. Left circumflex artery has severe mid stenosis subtotal occlusion followed by an area of 40% stenosis at the distal portion. Successful balloon angioplasty and stent deployment using 3.0 x 15 mm Alpine Xience stent, expanded to 3.25 mm with excellent results. The distal lesion had balloon angioplasty with improvement. 4. Right coronary artery is moderate in size with diffuse ectasia, slow flow due to small vessel disease. Medical therapy is recommended. 5. Left ventriculogram was done in the right anterior oblique position. The left ventricle is normal in size with normal systolic function. Estimated ejection fraction 60%. CONCLUSION: 1. Subtotal occlusion in the mid circumflex artery, successful balloon angioplasty then stent deployment using 3.0 x 15 mm Xience Alpine stent, expanded to 3.25 mm with excellent results. Distal circumflex artery has 40% stenosis. The balloon angioplasty was done with 3.0 x 15 mm Emerge balloon, with improvement. Mild residual disease. 2. Mild ectasia in the right coronary artery with slow flow, nonobstructive disease. 3. Normal left ventricular size and systolic function. Estimated ejection fraction 60%. DISCUSSION AND RECOMMENDATION: Mr. Plunkett will be treated with aspirin and Plavix. His lipid profile showed LDL of 147. He will be starting Lipitor 10 mg daily. Further recommendation will follow based on his progression. Thank you for allowing me to participate in the management of Mr. Plunkett. Job ID: [id number] Dictated Date: 07/07/2016 12:40:07 Web Ui Software Engineer Date: 07/07/2016 13:10:59 / jordan
[2016-07-07] MEDS: TICAGRELOR 90 MG TABLET (BRILINTA) PO SCH (20:52)
[2016-07-07] MEDS ORDERED: ATORVASTATIN 10 MG (LIPITOR) TABLET PO SCH (21:00)
[2016-07-08] VITALS: BP 126/91
[2016-07-08 04:00] VITALS: BP 129/94
[2016-07-08] MEDS: NS IV 1000 ML 1,000 ML IV SCH (04:18)
[2016-07-08 04:23] LABS: MEAN PLATELET VOLUME 10.5 FL (7.4-10.4); RED BLOOD COUNT 4.86 10^6/uL (4.35-5.85); RED CELL DISTRIBUTION WIDTH 12.5 % (10.0-14.5); WHITE BLOOD COUNT 7.4 10^3/uL (4.3-11.0)
[2016-07-08 04:41] LABS: ANION GAP 9 MMOL/L (5-14); BLOOD UREA NITROGEN 9 MG/DL (7-18); BUN/CREATININE RATIO 11; CARBON DIOXIDE 23 MMOL/L (21-32); CHLORIDE 106 MMOL/L (98-107); CREATININE SERUM 0.79 MG/DL (0.60-1.30); GFR ESTIMATED > 60; GLUCOSE 167 MG/DL (70-105); POTASSIUM 3.6 MMOL/L (3.6-5.0); SODIUM 138 MMOL/L (135-145)
[2016-07-08] MEDS: CATHETER FLUSH 10 ML SYR IV SCH (05:49)
[2016-07-08] MEDS: inSUlin (REGULAR) HUMAN 1 UNIT/0.01 ML (CHARGE PER UNIT) SC SCH (05:49)
--- NOTE | 2016-07-08 07:49 | Cardiology Progress Note ---
Subjective Subjective/Events-last exam Patient is feeling better, mild discomfort in the groin. No chest pain Review of Systems General: No Chills, No Night Sweats, No Fatigue, No Malaise, No Appetite, No Other HEENT: No Head Aches, No Visual Changes, No Eye Pain, No Ear Pain, No Dysphasia , No Sinus Congestion, No Post Nasal Drip, No Sore Throat, No Other Pulmonary: No Dyspnea, No Cough, No Pleuritic Chest Pain, No Other Cardiovascular: No: Chest Pain, Edema, Lt Headedness, Orthopnea, Other, Palpitations, Paroxysmal Noc. Dyspnea Objective-Cardiology Exam Last Set of Vital Signs Vital Signs 07/08/16 07/08/16 00:00 04:00 Temp 99.0 Pulse 92 Resp 14 B/P 129/94 Pulse Ox 96 O2 Delivery Room Air Capillary Refill : Less Than 3 Seconds I&O Intake and Output 07/08/16 00:00 Intake Total 2975 ml Output Total 1900 ml Balance 1075 ml Intake Oral 975 ml IV Total 2000 ml Output Urine Total 1900 ml # Voids 2 General: Alert, Oriented X3, Cooperative HEENT: Atraumatic, PERRLA Neck: Supple, No JVD, No Thyromegaly Lungs: Clear to Auscultation, Normal Air Movement Heart: Regular Rate, Normal S1, Normal S2, No Murmurs Abdomen: Normal Bowel Sounds, Soft, No Tenderness, No Hepatosplenomegaly, No Masses Extremities: No Clubbing, No Cyanosis, No Edema, Normal Pulses, No Tenderness/ Swelling Skin: No Rashes, No Breakdown, No Significant Lesion Neuro: Normal Gait, Normal Speech, Strength at 5/5 X4 Ext, Normal Tone, Sensation Intact Psych/Mental Status: Mental Status NL, Mood NL Results Lab Laboratory Tests 07/08/16 04:10 A/P-Cardiology Admission Diagnosis Chest pain nonspecific etiology Diabetes mellitus Tobaccoism Shortness of breath Assessment/Plan Chest pain nonspecific etiology, non-ST elevation myocardial infarction, cardiac catheterization showed subtotal occlusion of the circumflex artery successful balloon antiplastic in-stent deployment using 3.015 mm Xience stent expanded to 3.25 mm with excellent results. Balloon angioplasty for distal lesion in the circumflex artery with good results. Shortness of breath, during chest pain, reporting improvement at this time Diabetes mellitus, patient does not have history of diabetes, noted to have significant hyperglycemia, managed by primary care physician. Tobacco use product, patient chewed tobacco, educated on avoiding tobacco products. Okay for discharge from cardiac standpoint Clinical Quality Measures AMI/AHF: ASA po Prior to arrival: No DVT/VTE Risk/Contraindication: Risk Factor Score Per Nursin RFS Level Per Nursing on Admit: 1=Low/No VTE PPX LEONARDO ROSS MD Jul 08, 2016 07:49
[2016-07-08] MEDS ORDERED: TICA90TA PO (07:51)
[2016-07-08] MEDS ORDERED: ASPI-983 PO (07:51)
[2016-07-08] MEDS ORDERED: ATOR10TA66 PO (07:51)
[2016-07-08] MEDS ORDERED: METO-333 PO (07:51)
--- NOTE | 2016-07-08 07:51 | Discharge Inst-Post CATH ---
Discharge Inst-CATH Post Cardiac Cath D/C Inst Follow Up/Plan Appointment with Dr Stiles's office in 2-4 weeks CARDIAC CATH DISCHARGE INSTRUCTIONS *Hold Metformin for 48 hours post heart cath. ACTIVITY * Go Home directly and rest. * Limit activity of the leg (or wrist if it was used) for 7 days including aerobics, swimming, jogging, bicycling, etc. * Restrict stair-climbing for 7 days if possible, if not, climb up with your non -cath leg, then bring together on the same step. * Avoid lifting, pushing, pulling or excessive movement of the affected extremity for 7 days. * Customary sexual activity may be resumed after 2 days-use caution not to use a position that strains or causes pain to the affected extremity. * No driving for 24 hours. * NO SMOKING. * Avoid straining for bowel movements for 7 days. * Gentle walking on level ground is allowed. * Returning to work will depend on the type of procedure and the results. Your doctor will discuss this with you. CALL YOUR DOCTOR FOR ANY OF THE FOLLOWING: *If bleeding from the puncture site occurs- Apply gentle pressure to site with clean cloth and call your doctor or EMS. * If a knot or lump forms under the skin, increases in size, or causes pain. * If bruising appears to be worsening or moving further down your leg instead of disappearing. * Temperature above 101 F. CARE OF YOUR GROIN INCISION; * Bruising or purple discoloration of the skin near the puncture site is common. * You may shower only, no bathtub bathing for 5 days. Be careful to avoid slipping as your leg may feel stiff. * If a closure device was used on your femoral artery, please see the attached guide regarding care of the device and your leg. * REMOVE the dressing from your groin the next day after your procedure in the shower. CARE OF YOUR WRIST INCISION; * Bruising or purple discoloration of the skin near the puncture site is common. * You may shower. * DO NOT submerge wrist. * Remove dressing in 24 hours. LEONARDO STILES MD Jul 08, 2016 07:51
[2016-07-08] MEDS ORDERED: GLYB1.253 PO (08:49)
[2016-07-08] MEDS ORDERED: ASPIRIN E.C. 81 MG (ECOTRIN) TAB PO SCH (09:00)
[2016-07-08 09:08] VITALS: BP 152/117
[2016-07-08] MEDS: TICAGRELOR 90 MG TABLET (BRILINTA) PO SCH (09:08)
[2016-07-08] MEDS: meTOprolol TARTRATE 25 MG (LOPRESSOR) TABLET PO SCH (09:08)
--- NOTE | 2016-07-08 10:42 | Discharge Summary-Hospitalist ---
LESLY PERES MED STUDENT 07/08/16 1042: Diagnosis/Chief Complaint Date of Admission Jul 07, 2016 at 08:22 Date of Discharge 07/08/16 Discharge Date: Jul 08, 2016 Admission Diagnosis NSTEMI New onset DM 9.8 hga1c HTN new onset Discharge Diagnosis 40yoM with previous unknown medical history with NSTEMI and new diagnosed DM and HTN who was admitted to the ICU on 07/07/16 for cardiac cath with stent placement. Per cardiology: cardiac catheterization showed subtotal occlusion of the circumflex artery successful balloon antiplastic in-stent deployment using 3.015 mm Xience stent expanded to 3.25 mm with excellent results. Balloon angioplasty for distal lesion in the circumflex artery with good results. He did well overnight with complete resolution of cardiac symptoms and only minor pain in groin at procedure site. He was started on statin therapy, antiplatelet, beta dashawn, and glyburide for home medications. He was referred to [facility] for his PCP, and he will have follow up with cardiology after discharge on 07/08/16. Reason Hospital Visit/Course Noted above information and confirmed by patient. Discharge Summary Discharge Physical Examination Allergies: Coded Allergies: No Known Drug Allergies (Unverified , 07/06/16) Vitals & I&Os Vital Signs Date Time Temp Pulse Resp B/P Pulse Ox O2 Delivery O2 Flow Rate FiO2 07/08/16 09:08 98.5 88 16 152/117 96 Room Air Hospital Course Labs (last 24 hrs) Laboratory Tests 07/07/16 14:29: Glucometer 174H 07/07/16 20:50: Glucometer 146H 07/08/16 04:10: Anion Gap 9, BUN/Creatinine Ratio 11, Blood Urea Nitrogen 9, Calcium Level 8.0L , Carbon Dioxide Level 23, Chloride Level 106, Creatinine 0.79, Estimat Glomerular Filtration Rate > 60, Glucose Level 167H, Hematocrit 40, Hemoglobin 14.4, Mean Corpuscular Hemoglobin 30, Mean Corpuscular Hemoglobin Concent 36, Mean Corpuscular Volume 83, Mean Platelet Volume 10.5H, Platelet Count 194, Potassium Level 3.6, Red Blood Count 4.86, Red Cell Distribution Width 12.5, Sodium Level 138, White Blood Count 7.4 Pending Labs Laboratory Tests 07/08/16 04:10: Anion Gap 9, BUN/Creatinine Ratio 11, Blood Urea Nitrogen 9, Calcium Level 8.0, Carbon Dioxide Level 23, Chloride Level 106, Creatinine 0.79, Estimat Glomerular Filtration Rate > 60, Glucose Level 167, Hematocrit 40, Hemoglobin 14.4, Mean Corpuscular Hemoglobin 30, Mean Corpuscular Hemoglobin Concent 36, Mean Corpuscular Volume 83, Mean Platelet Volume 10.5, Platelet Count 194, Potassium Level 3.6, Red Blood Count 4.86, Red Cell Distribution Width 12.5, Sodium Level 138, White Blood Count 7.4 Discharge Home Medications: Active Scripts Active Glyburide 1.25 Mg Tablet 1.25 Mg PO BID Aspirin EC (Aspirin) 81 Mg Tablet.dr 81 Mg PO DAILY Metoprolol Tartrate 25 Mg Tablet 25 Mg PO BID Atorvastatin Calcium 10 Mg Tablet 10 Mg PO HS Brilinta (Ticagrelor) 90 Mg Tablet 90 Mg PO BID Reported Aleve (Naproxen Sodium) 220 Mg Tablet 440 Mg PO DAILY TAKES 2 (220 MG) TABLETS Instructions to patient/family Please see electonic discharge instructions given to patient. Clinical Quality Measures AMI/AHF: ASA po Prior to arrival: No DVT/VTE Risk/Contraindication: Risk Factor Score Per Nursin RFS Level Per Nursing on Admit: 1=Low/No VTE PPX TORREZ,KENDY BETHEA 07/08/16 1055: Diagnosis/Chief Complaint Discharge Diagnosis non-ST elevation ID acute with elevated troponin and left circumflex occlusion status post cardiac catheter with intervention and stent placement New onset diabetes hemoglobin A1c of 9.4 New-onset hypertension but improved at time of discharge Hyperlipidemia requiring statin therapy Oral tobacco use Reason Hospital Visit/Course Hospital course: Patient had an uneventful hospital course he was admitted for chest pain elevated blood pressure and new onset diabetes placed in observation found to have second troponin elevation of 2.56 prompting cardiac catheterization the following day by Dr. Stiles who revealed occlusion of left circumflex requiring stent placement with good results and overall patient did well from that standpoint. fiberglass laminator met with patient [facility] establishment of primary care provider will be set up with close monitoring of sugar and started on glyburide 1.25 mg twice daily in addition to cardiac meds. Discharge Summary Discharge Physical Examination Allergies: Coded Allergies: No Known Drug Allergies (Unverified , 07/06/16) Vitals & I&Os Vital Signs Date Time Temp Pulse Resp B/P Pulse Ox O2 Delivery O2 Flow Rate FiO2 1/10/17 09:08 98.5 88 16 152/117 96 Room Air Hospital Course Labs (last 24 hrs) Laboratory Tests 07/07/16 14:29: Glucometer 174H 07/07/16 20:50: Glucometer 146H 07/08/16 04:10: Anion Gap 9, BUN/Creatinine Ratio 11, Blood Urea Nitrogen 9, Calcium Level 8.0L , Carbon Dioxide Level 23, Chloride Level 106, Creatinine 0.79, Estimat Glomerular Filtration Rate > 60, Glucose Level 167H, Hematocrit 40, Hemoglobin 14.4, Mean Corpuscular Hemoglobin 30, Mean Corpuscular Hemoglobin Concent 36, Mean Corpuscular Volume 83, Mean Platelet Volume 10.5H, Platelet Count 194, Potassium Level 3.6, Red Blood Count 4.86, Red Cell Distribution Width 12.5, Sodium Level 138, White Blood Count 7.4 Pending Labs Laboratory Tests 07/08/16 04:10: Anion Gap 9, BUN/Creatinine Ratio 11, Blood Urea Nitrogen 9, Calcium Level 8.0, Carbon Dioxide Level 23, Chloride Level 106, Creatinine 0.79, Estimat Glomerular Filtration Rate > 60, Glucose Level 167, Hematocrit 40, Hemoglobin 14.4, Mean Corpuscular Hemoglobin 30, Mean Corpuscular Hemoglobin Concent 36, Mean Corpuscular Volume 83, Mean Platelet Volume 10.5, Platelet Count 194, Potassium Level 3.6, Red Blood Count 4.86, Red Cell Distribution Width 12.5, Sodium Level 138, White Blood Count 7.4 Discharge Home Medications: Active Scripts Active Glyburide 1.25 Mg Tablet 1.25 Mg PO BID Aspirin EC (Aspirin) 81 Mg Tablet.dr 81 Mg PO DAILY Metoprolol Tartrate 25 Mg Tablet 25 Mg PO BID Atorvastatin Calcium 10 Mg Tablet 10 Mg PO HS Brilinta (Ticagrelor) 90 Mg Tablet 90 Mg PO BID LESLY PERES STUDENT Jul 08, 2016 10:42 KENDY TORREZ DO Jul 08, 2016 10:55
== END 2016-07-08 11:40 | disposition home or self-care (01) | DRG 249 ==
LOC: ER 21:30 → ICU 22:35 → UNDOADMOB 23:07 → INTOOBSV 07-07 08:20 → OBSVTOIN 07-07 08:20
PROVIDERS: ADMIT Internal Medicine; ATTEND Internal Medicine
PROC: 02703DZ Dilation of Coronary Artery, One Artery with Intraluminal Device, Percutaneous Approach (ICD-10-PCS; principal; 2016-07-07)
PROC: 4A023N7 Measurement of Cardiac Sampling and Pressure, Left Heart, Percutaneous Approach (ICD-10-PCS; 2016-07-07)
PROC: B2151ZZ Fluoroscopy of Left Heart using Low Osmolar Contrast (ICD-10-PCS; 2016-07-07)
PROC: B2111ZZ Fluoroscopy of Multiple Coronary Arteries using Low Osmolar Contrast (ICD-10-PCS; 2016-07-07)
PROC: B3101ZZ Fluoroscopy of Thoracic Aorta using Low Osmolar Contrast (ICD-10-PCS; 2016-07-07)
DX: I21.4 Non-ST elevation (NSTEMI) myocardial infarction (principal); I25.10 Atherosclerotic heart disease of native coronary artery without angina pectoris; I16.0 Hypertensive urgency; E11.65 Type 2 diabetes mellitus with hyperglycemia; E78.5 Hyperlipidemia, unspecified; F17.220 Nicotine dependence, chewing tobacco, uncomplicated
CPT/HCPCS: 36415; 71010; 80048; 80053; 80061; 82550; 82962; 83036; 83735; 83874; 84443; 84484; 85025; 85027; 85347; 85379; 85610; 85730; 93005; 93041; 93458; 96361; 96372; 96374

== ENCOUNTER 2017-09-14 22:54 | Observation (INO) | payer SELFPAY ==
[~2017-09-14] VITALS: Ht 188 cm; Wt 108.5 kg
[~2017-09-14 22:54] MED LIST: ASPI-983 PO; ATOR10TA66 PO; GLYB1.253 PO; METO-333 PO; NAPR220T66 PO; TICA90TA PO
--- OUTSIDE RECORDS SUMMARY | 2017-09-14 22:59 | XMS REPORT ---
Author Author NADEGE SANTA [facility] Address [address] [place] [address] Care Team Providers Care Art Therapy Certified Supervisor Name Role Phone NADEGE SANTA Unavailable PROBLEMS Type Condition ICD9-CM Code COL21-WS Code Onset Dates Condition Status SNOMED Code Problem Non-insulin dependent type 2 diabetes mellitus E11.9 Active 22197491 Problem Myocardial infarction in recovery phase I21.3 Active 155130327 ALLERGIES Unknown Allergies SOCIAL HISTORY No smoking Hx information available PLAN OF CARE VITAL SIGNS MEDICATIONS Medication Instructions Dosage Frequency Start Date End Date Duration Status GlyBURIDE 1.25 MG Orally Once a day 1 tablet with breakfast or the first main meal of the day 24h Jul, 30 day(s) Active RESULTS No Results PROCEDURES No Known procedures IMMUNIZATIONS No Known Immunizations
--- OUTSIDE RECORDS SUMMARY | 2017-09-14 22:59 | XMS REPORT ---
Author Author NADEGE SANTA [facility] Address [address] [place] [address] Care Team Providers Care Stock Drier Tender Name Role Phone NADEGE SANTA Unavailable PROBLEMS Type Condition ICD9-CM Code [id number] Code Onset Dates Condition Status SNOMED Code Problem Non-insulin dependent type 2 diabetes mellitus E11.9 Active 51815109 Problem Myocardial infarction in recovery phase I21.3 Active [id number] ALLERGIES No Information SOCIAL HISTORY Never Assessed PLAN OF CARE VITAL SIGNS MEDICATIONS Unknown Medications RESULTS No Results PROCEDURES No Known procedures IMMUNIZATIONS No Known Immunizations MEDICAL (GENERAL) HISTORY Type Description Date Medical History diabetes Medical History HTN Surgical History stent 2017 Hospitalization History stent 2017
--- OUTSIDE RECORDS SUMMARY | 2017-09-14 22:59 | XMS REPORT ---
Author Author NADEGE SANTA [facility] Address [address] [place] [address] Care Team Providers Care Digital Retoucher Name Role Phone NADEGE SANTA Unavailable PROBLEMS Type Condition ICD9-CM Code [id number] Code Onset Dates Condition Status SNOMED Code Problem Non-insulin dependent type 2 diabetes mellitus E11.9 Active 99725912 Problem Myocardial infarction in recovery phase I21.3 Active [id number] ALLERGIES No Information SOCIAL HISTORY Never Assessed PLAN OF CARE VITAL SIGNS MEDICATIONS Unknown Medications RESULTS No Results PROCEDURES No Known procedures IMMUNIZATIONS No Known Immunizations MEDICAL (GENERAL) HISTORY Type Description Date Medical History diabetes Medical History HTN Surgical History stent 2017 Hospitalization History stent 2017
--- OUTSIDE RECORDS SUMMARY | 2017-09-14 22:59 | XMS REPORT ---
Author Author NADEGE SANTA [facility] Address [address] [place] [address] Care Team Providers Care Exceptional Children'S Teacher Name Role Phone NADEGE SANTA Unavailable PROBLEMS Type Condition ICD9-CM Code [id number] Code Onset Dates Condition Status SNOMED Code Problem Non-insulin dependent type 2 diabetes mellitus E11.9 Active 72779637 Problem Myocardial infarction in recovery phase I21.3 Active [id number] ALLERGIES Unknown Allergies SOCIAL HISTORY No smoking Hx information available PLAN OF CARE VITAL SIGNS MEDICATIONS Unknown Medications RESULTS No Results PROCEDURES No Known procedures IMMUNIZATIONS No Known Immunizations
--- OUTSIDE RECORDS SUMMARY | 2017-09-14 22:59 | XMS REPORT ---
Author Author NADEGE SANTA Organization [facility] [place] Address [address] [place] [address] Care Team Providers Care Cad Detailer Name Role Phone NADEGE SANTA Unavailable PROBLEMS Type Condition ICD9-CM Code [id number] Code Onset Dates Condition Status SNOMED Code Problem Non-insulin dependent type 2 diabetes mellitus E11.9 Active 36128966 Problem Myocardial infarction in recovery phase I21.3 Active [id number] ALLERGIES No Known Allergies SOCIAL HISTORY Never Assessed PLAN OF CARE Activity Details Follow Up 2 Months with Mikaela f/u DM/DC Reason: VITAL SIGNS Height 72 in 2016-07-17 Weight 230.6 lbs 2016-07-17 Temperature 98.2 degrees Fahrenheit 2016-07-17 Heart Rate 74 bpm 2016-07-17 Respiratory Rate 20 2016-07-17 BMI 31.27 kg/m2 2016-07-17 Blood pressure systolic 135 mmHg 2016-07-17 Blood pressure diastolic 82 mmHg 2016-07-17 MEDICATIONS Unknown Medications RESULTS No Results PROCEDURES No Known procedures IMMUNIZATIONS No Known Immunizations MEDICAL (GENERAL) HISTORY Type Description Date Medical History diabetes Medical History HTN Surgical History stent 2017 Hospitalization History stent 2016
[2017-09-14] MEDS ORDERED: CLINDAMYCIN 900 MG/50 ML IVPB 50 ML IV ONE (23:15)
[2017-09-14] MEDS ORDERED: KETOROLAC 30 MG/ML VIAL IVP ONE (23:15)
[2017-09-14 23:23] LABS: BASOPHILS % (AUTO) 0 % (0-10); EOSINOPHILS # (AUTO) 0.1 10^3/uL (0.0-0.3); EOSINOPHILS % (AUTO) 1 % (0-10); HEMATOCRIT 46 % (40-54); HEMOGLOBIN 16.6 G/DL (13.3-17.7); LYMPHOCYTES # (AUTO) 1.3 X 10^3 (1.0-4.0); LYMPHOCYTES % (AUTO) 13 % (12-44); MEAN CORPUSCULAR HEMOGLOBIN 31 PG (25-34); MEAN CORPUSCULAR HGB CONC 37 G/DL (32-36); MEAN CORPUSCULAR VOLUME 84 FL (80-99); MEAN PLATELET VOLUME 10.3 FL (7.4-10.4); MONOCYTES % (AUTO) 10 % (0-12); NEUTROPHILS # (AUTO) 7.9 X 10^3 (1.8-7.8); NEUTROPHILS % (AUTO) 76 % (42-75); PLATELET COUNT 226 10^3/uL (130-400); RED BLOOD COUNT 5.45 10^6/uL (4.35-5.85); RED CELL DISTRIBUTION WIDTH 12.7 % (10.0-14.5); WHITE BLOOD COUNT 10.4 10^3/uL (4.3-11.0)
[2017-09-14 23:34] LABS: INR 0.9 (0.8-1.4); PROTHROMBIN TIME PATIENT 12.7 SEC (12.2-14.7)
[2017-09-14] MEDS ORDERED: IOHEXOL 350 MG/ML 100 ML (OMNIPAQUE 350) VIAL IV ONE (23:45)
[2017-09-14] MEDS ORDERED: NS 250 ML (IVPB) BAG IV ONE (23:45)
[2017-09-14 23:46] LABS: ALANINE AMINOTRANSFERASE 25 U/L (0-55); ALBUMIN 4.6 GM/DL (3.2-4.5); ALKALINE PHOSPHATASE 65 U/L (40-136); AMYLASE 48 U/L (25-125); BILIRUBIN,TOTAL 0.9 MG/DL (0.1-1.0); BUN/CREATININE RATIO 11; CALCIUM 9.8 MG/DL (8.5-10.1); CARBON DIOXIDE 17 MMOL/L (21-32); CHLORIDE 106 MMOL/L (98-107); GFR ESTIMATED > 60; GLUCOSE 92 MG/DL (70-105); LIPASE 30 U/L (8-78); SODIUM 137 MMOL/L (135-145); TOTAL PROTEIN 7.8 GM/DL (6.4-8.2)
[2017-09-15 01:10] VITALS: BP 163/96
[2017-09-15] MEDS ORDERED: CATHETER FLUSH 10 ML SYR IV PRN (02:15)
[2017-09-15] MEDS ORDERED: fentaNYL INJECTION 100 MCG/2 ML AMP IV PRN (02:15)
[2017-09-15] MEDS ORDERED: ACETAMINOPHEN 500 MG TAB (TYLENOL) PO PRN (02:15)
[2017-09-15] MEDS ORDERED: KETOROLAC 30 MG/ML VIAL IV PRN (02:15)
[2017-09-15 03:57] VITALS: BP 137/84
[2017-09-15] MEDS: CATHETER FLUSH 10 ML SYR IV SCH ×2 (05:04→12:50)
[2017-09-15] MEDS: CLINDAMYCIN 900 MG/50 ML IVPB 50 ML IV SCH ×2 (05:05→12:47)
[2017-09-15 05:25] LABS: HEMATOCRIT 42 % (40-54); HEMOGLOBIN 15.2 G/DL (13.3-17.7); MEAN CORPUSCULAR HEMOGLOBIN 30 PG (25-34); MEAN CORPUSCULAR HGB CONC 36 G/DL (32-36); MEAN CORPUSCULAR VOLUME 84 FL (80-99); PLATELET COUNT 204 10^3/uL (130-400); RED CELL DISTRIBUTION WIDTH 12.6 % (10.0-14.5); WHITE BLOOD COUNT 10.1 10^3/uL (4.3-11.0)
[2017-09-15 05:26] LABS: BASOPHILS % (AUTO) 0 % (0-10); EOSINOPHILS % (AUTO) 0 % (0-10); LYMPHOCYTES # (AUTO) 1.2 X 10^3 (1.0-4.0); LYMPHOCYTES % (AUTO) 12 % (12-44); MEAN PLATELET VOLUME 10.3 FL (7.4-10.4); MONOCYTES # (AUTO) 1.1 X 10^3 (0.0-1.0); MONOCYTES % (AUTO) 10 % (0-12); NEUTROPHILS # (AUTO) 7.8 X 10^3 (1.8-7.8); NEUTROPHILS % (AUTO) 77 % (42-75)
[2017-09-15 06:05] LABS: ALBUMIN 4.2 GM/DL (3.2-4.5); ALKALINE PHOSPHATASE 57 U/L (40-136); BILIRUBIN,TOTAL 1.2 MG/DL (0.1-1.0); BUN/CREATININE RATIO 11; CALCIUM 8.9 MG/DL (8.5-10.1); CARBON DIOXIDE 24 MMOL/L (21-32); CHLORIDE 104 MMOL/L (98-107); CREATININE SERUM 0.93 MG/DL (0.60-1.30); GFR ESTIMATED > 60; GLUCOSE 119 MG/DL (70-105); POTASSIUM 3.9 MMOL/L (3.6-5.0); SODIUM 139 MMOL/L (135-145); TOTAL PROTEIN 6.7 GM/DL (6.4-8.2)
[2017-09-15] MEDS: inSUlin (REGULAR) HUMAN 1 UNIT/0.01 ML (CHARGE PER UNIT) SC SCH ×2 (06:09→12:31)
[2017-09-15 06:31] LABS: ALANINE AMINOTRANSFERASE 20 U/L (0-55)
--- NOTE | 2017-09-15 06:53 | Diagnostic Imaging Report ---
Clinical indication: Patient with left-sided facial swelling and lower jaw dental pain. Exam: Axial CT scan of the maxillofacial structures performed with 100 cc of Omnipaque 350 IV contrast. Coronal and sagittal reformatted images were created. Comparison: None. Findings: There is no maxillofacial fracture seen. There is multiple periapical erosions seen and dental caries predominantly involving the bilateral maxillary and bilateral mandibular molar and premolar teeth. There is also note of bony sclerotic changes involving the right mandibular body region adjacent to the teeth which may be related to chronic infection or inflammatory changes. There is a moderate amount of soft tissue swelling seen laterally adjacent to the left mandibular body with soft tissue swelling seen. There is no measurable low-density fluid collection seen which would be drainable. There is significant periapical erosions seen adjacent to the mandibular left first molar tooth and this tooth may be the culprit for the adjacent inflammatory changes. There is prominent reactive lymph nodes seen in the bilateral submandibular regions (left side more than the right). There is no other significant head and neck abnormality seen on this exam. The orbits and globes are unremarkable. The visualized portion of the oral cavity, sublingual space and tongue are grossly unremarkable. The nasopharynx, oropharynx, hypopharynx, and visualized portions of the larynx are grossly unremarkable. Neck vascular structures are unremarkable. Bilateral salivary glands show no significant abnormality. Visualized intracranial structures are unremarkable. There is moderate lobulated mucosal thickening involving both maxillary sinuses and minimal mucosal thickening in the ethmoid sinus. The temporal bone structures show no significant abnormality. Impression: 1: Poor dentition with multiple periapical erosions involving the maxillary and mandibular teeth bilaterally, and a moderate amount of phlegmonous soft tissue seen lateral to the left mandibular body. There is no measurable abscess in the soft tissue. The mandibular left first molar tooth show significant periapical erosions and may represent the culprit for soft tissue inflammation. 2: Mild reactive lymph nodes seen bilaterally (left side more than the right). 3: Mild to moderate paranasal sinus disease. I agree with [facility] report. Dictated by: Dictated on workstation # [id number]
[2017-09-15] MEDS ORDERED: INFLUENZA TRIvalent 2017-2018 0.5 ML/45 MCG SYR IM ONE (07:15)
[2017-09-15 08:00] VITALS: BP 128/82
--- NOTE | 2017-09-15 08:45 | ED EENT ---
History of Present Illness General Chief Complaint: Dental Problems/Pain Stated Complaint: DENTAL ABCESS/FACIAL CELLULITIS;NIDDM Nursing Triage Note: Patient reports L side facial swelling. patient reports having L lower dental pain last night. Source: patient History of Present Illness Date Seen by Provider: Sep 14, 2017 Time Seen by Provider: 23:05 Initial Comments PT C/O LEFT FACE/JAW PAIN AND SWELLING SINCE 1300 TODAY HAD SOME DENTAL PAIN LAST PM--LEFT LOWER MOLAR--PAIN RELIEVED WITH ORAJEL NO FEVER IS HAVING PROBLEMS OPENING MOUTH DUE TO PAIN AND SWELLING NO HISTORY OF SIMILAR NO RECENT DENTAL PROCEDURES TOOK 162 MG ASPIRIN AT 1600 DOES NOT HAVE A DENTIST/HAS NOT SEEN ONE IN MANY YEARS. PT IS DIABETIC, STATES BLOOD GLUCOSE WAS 89 THIS AM, AND WAS 110 THIS AFTERNOON. PCP: CHANG Allergies and Home Medications Allergies Coded Allergies: No Known Drug Allergies (Unverified , 07/06/16) Home Medications Aspirin 81 Mg Tablet.dr, 81 MG PO DAILY Prescribed by: LEONARDO ROSS on 07/08/16 075 Atorvastatin Calcium 10 Mg Tablet, 10 MG PO HS Prescribed by: LEONARDO ROSS on 07/08/16 075 Glyburide 1.25 Mg Tablet, 1.25 MG PO BID Prescribed by: KENDY TORREZ on 07/08/16 0849 Metoprolol Tartrate 25 Mg Tablet, 25 MG PO BID Prescribed by: LEONARDO ROSS on 07/08/16 075 Ticagrelor 90 Mg Tablet, 90 MG PO BID Prescribed by: LEONARDO ROSS on 07/08/16 075 Patient Home Medication List Home Medication List Reviewed: Yes Review of Systems Constitutional: no symptoms reported, No chills, No fever Eyes: No Symptoms Reported Ears: No Symptoms Reported Nose: no symptoms reported Mouth: see HPI Throat: no symptoms reported Respiratory: no symptoms reported Cardiovascular: no symptoms reported Gastrointestinal: no symptoms reported Musculoskeletal: see HPI Skin: no symptoms reported Neurological: No Symptoms Reported Hematologic/Lymphatic: No Symptoms Reported Immunological/Allergic: no symptoms reported Past Niamehl-Zuasqa-Rskqus Hx Patient Social History Alcohol Use: Occasionally Uses Number of Drinks Today: AA Alcohol Beverage of Choice: Beer Recreational Drug Use: No Smoking Status: Never a Smoker Type Used: Smokeless Tobacco (CHEWS TOBACCO) Recent Foreign Travel: No Contact w/Someone Who Travel: No Recent Infectious Disease Expo: No Recent Hopitalizations: No Physical Abuse: No Sexual Abuse: No Seasonal Allergies Seasonal Allergies: No Surgeries History of Surgeries: Yes (CARDIAC CATH--STENT X 1) Surgeries: Cardiac, Coronary Stent Respiratory History of Respiratory Disorde: No Currently Using CPAP: No Currently Using BIPAP: No Cardiovascular History of Cardiac Disorders: Yes (CARDIAC STENT X1) Cardiac Disorders: Coronary Artery Disease, High Cholesterol, Hypertension Neurological History of Neurological Disord: No Reproductive System Hx Reproductive Disorders: No Genitourinary History of Genitourinary Disor: No Gastrointestinal History of Gastrointestinal Di: No Musculoskeletal History of Musculoskeletal Dis: Yes Musculoskeletal Disorders: Fractures Endocrine History of Endocrine Disorders: Yes Endocrine Disorders: Diabetes, Non-Insulin dep HEENT History of HEENT Disorders: No Loss of Vision: Denies Cancer History of Cancer: No Psychosocial History of Psychiatric Problem: No Suicide Risk Score: 0 Integumentary History of Skin or Integumenta: No Blood Transfusions History of Blood Disorders: No Family Medical History Significant Family History: No Pertinent Family Hx Family Medial History: Not obtainable due to adoption Physical Exam Vital Signs Vital Signs - First Documented 09/14/17 23:00 Temp 99.9 Pulse 96 Resp 18 B/P (MAP) 165/102 (123) Pulse Ox 96 General Appearance: WD/WN Eyes: bilateral eye normal inspection, bilateral eye PERRL, bilateral eye EOMI Nose: normal inspection Mouth/Throat: dental tenderness, mandibular swelling (MODERATE SWELLING AND TENDERNESS TO LEFT MANDIBLE AREA. AREA IS VERY HARD /INDURATED. NO AREAS OF FLUCTUANCE. ), other (CARIES/DENTAL TENDERNESS TO LEFT LOWER FIRST MOLAR, WITH SURROUNDING GUM INFLAMMATION/SWELLING/TENDERNESS. CHEWING TOBACCO RESIDUE IN MOUTH. MULTIPLE DENTAL CARIES. ) Neck: non-tender, full range of motion, supple, normal inspection, lymphadenopathy (L) Cardiovascular: regular rate, rhythm, no murmur Respiratory: normal breath sounds Neurologic/Psychiatric: estate manager II-XII nml as tested, no motor/sensory deficits, alert, normal mood/affect, oriented x 3 Skin: normal color, warm/dry Progress/Results/Core Measures Results/Orders Lab Results Laboratory Tests Test 09/14/17 23:10 09/15/17 00:10 09/15/17 05:15 Range/Units White Blood Count 10.4 10.1 4.3-11.0 10^3/uL Red Blood Count 5.45 5.00 4.35-5.85 10^6/uL Hemoglobin 16.6 15.2 13.3-17.7 G/DL Hematocrit 46 42 40-54 % Mean Corpuscular Volume 84 84 80-99 FL Mean Corpuscular Hemoglobin 31 30 25-34 PG Mean Corpuscular Hemoglobin Concent 37 H 36 32-36 G/DL Red Cell Distribution Width 12.7 12.6 10.0-14.5 % Platelet Count 226 204 130-400 10^3/uL Mean Platelet Volume 10.3 10.3 7.4-10.4 FL Neutrophils (%) (Auto) 76 H 77 H 42-75 % Lymphocytes (%) (Auto) 13 12 12-44 % Monocytes (%) (Auto) 10 10 0-12 % Eosinophils (%) (Auto) 1 0 0-10 % Basophils (%) (Auto) 0 0 0-10 % Neutrophils # (Auto) 7.9 H 7.8 1.8-7.8 X 10^3 Lymphocytes # (Auto) 1.3 1.2 1.0-4.0 X 10^3 Monocytes # (Auto) 1.0 1.1 H 0.0-1.0 X 10^3 Eosinophils # (Auto) 0.1 0.0 0.0-0.3 10^3/uL Basophils # (Auto) 0.0 0.0 0.0-0.1 10^3/uL Prothrombin Time 12.7 12.2-14.7 SEC INR Comment 0.9 0.8-1.4 Activated Partial Thromboplast Time 26 24-35 SEC Sodium Level 137 139 135-145 MMOL/L Potassium Level 4.0 3.9 3.6-5.0 MMOL/L Chloride Level 106 104 98-107 MMOL/L Carbon Dioxide Level 17 L 24 21-32 MMOL/L Anion Gap 14 11 5-14 MMOL/L Blood Urea Nitrogen 10 10 7-18 MG/DL Creatinine 0.90 0.93 0.60-1.30 MG/DL Estimat Glomerular Filtration Rate > 60 > 60 BUN/Creatinine Ratio 11 11 Glucose Level 92 119 H 70-105 MG/DL Calcium Level 9.8 8.9 8.5-10.1 MG/DL Total Bilirubin 0.9 1.2 H 0.1-1.0 MG/DL Aspartate Amino Transf (AST/SGOT) 24 13 5-34 U/L Alanine Aminotransferase (ALT/SGPT) 25 20 0-55 U/L Alkaline Phosphatase 65 57 40-136 U/L Total Protein 7.8 6.7 6.4-8.2 GM/DL Albumin 4.6 H 4.2 3.2-4.5 GM/DL Amylase Level 48 25-125 U/L Lipase 30 8-78 U/L Lactic Acid Level 2.00 0.50-2.00 MMOL/L My Orders Orders - LUISA ARREOLA DO Saline Lock/Iv-Start (09/14/17 23:11) Amylase (09/14/17 23:11) Cbc With Automated Diff (09/14/17:11) Comprehensive Metabolic Panel (09/14/17:) Lactic Acid Analyzer (09/14/17 23:11) Lipase (09/14/17 23:11) Protime With Inr (09/14/17:11) Partial Thromboplastin Time (09/14/17 23:11) Blood Culture (09/14/17 23:11) Clindamycin 900 Mg/50 Ml Ivpb (Cleocin P (09/14/17 23:15) Ketorolac Injection (Toradol Injection) (09/14/17 23:15) Ct Maxillofacial W (09/14/17 23:11) Iohexol Injection (Omnipaque 350 Mg/Ml 1 (09/14/17 23:45) Ns (Ivpb) (Sodium Chloride 0.9%) (09/14/17 23:45) Medications Given in ED Current Medications Medications Dose Ordered Sig/Cayden Route Start Time Stop Time Status Last Admin Dose Admin Clindamycin Phosphate/Dextrose 50 ml @ 100 mls/hr ONCE ONCE IV 09/14/17 23:15 09/14/17 23:44 DC 09/15/17 00:27 100 MLS/HR Iohexol 100 ml ONCE ONCE IV 09/14/17 23:45 09/14/17 23:46 DC 09/14/17 23:47 100 ML Ketorolac Tromethamine 30 mg ONCE ONCE IVP 09/14/17 23:15 09/14/17 23:17 DC 09/15/17 00:14 30 MG Sodium Chloride 250 ml ONCE ONCE IV 09/14/17 23:45 09/14/17 23:46 DC 09/14/17 23:47 80 ML Vital Signs/I&O Vital Sign - Last 12Hours 09/14/17 09/15/17 09/15/17 09/15/17 23:00 00:54 01:10 01:10 Temp 99.9 100.1 100.0 Pulse 96 111 106 Resp 18 18 18 B/P (MAP) 165/102 (123) 132/92 (123) 163/96 (118) Pulse Ox 96 96 96 O2 Delivery Room Air Room Air 09/15/17 03:57 Temp 98.3 Pulse 95 Resp 18 B/P (MAP) 137/84 (101) Pulse Ox 96 O2 Delivery Room Air Blood Pressure Mean: 101 Point of Care Testing Finger Stick Blood Glucose: 119 Progress Note : Progress Note UNEVENTFUL ER STAY Diagnostic Imaging Comments CT MAXILLOFACIALS--DENTAL CARIES AND PERIAPICAL ABSCESSES OF TOOTH #19 WITH OVERLYING LEFT PERIMANDIBULAR PHLEGMON. A SMALL UNDERLYING PERIMANDIBULAR ABSCESS IN NOT EXCLUDED. PER [facility] VIA FAX @ [phone] Reviewed: Reviewed by Me Departure Communication (Admissions) Time/Spoke to Admitting Phy: 00:[address] PEACE, ACCEPTS PT FOR ADMIT Impression Impression: Primary Impression: Dental abscess Additional Impressions: Facial cellulitis NIDDM Disposition: ADMITTED INPATIENT Condition: Stable Admissions Decision to Admit Reason: Admit from ER (General) Decision to Admit/Date: Sep 15, 2017 Time/Decision to Admit Time: 00:01 Departure-Patient Inst. Referrals: NO,LOCAL PHYSICIAN (PCP) Primary Care Physician LUISA ARREOLA DO Sep 15, 2017 08:45
[2017-09-15] MEDS ORDERED: FAMOTIDINE 20MG/2ML IV (PEPCID) IV SCH (09:00)
[2017-09-15] MEDS ORDERED: ASPI-983 PO (09:34)
[2017-09-15] MEDS ORDERED: TICA90TA PO (09:34)
[2017-09-15] MEDS ORDERED: GLYB1.253 PO (09:34)
[2017-09-15] MEDS ORDERED: ATOR10TA66 PO (09:34)
[2017-09-15] MEDS ORDERED: LISI30TA5 PO (09:34)
[2017-09-15] MEDS ORDERED: METO50TA15 PO (09:34)
[2017-09-15] MEDS: LACTOBACILLUS Acidoph/Bulgar (LACTINEX/FLORANEX) TAB PO SCH ×2 (10:00→12:48)
[2017-09-15 12:00] VITALS: BP 141/91
--- NOTE | 2017-09-15 13:28 | Discharge Summary ---
Diagnosis/Chief Complaint Date of Admission Sep 15, 2017 at 00:01 Date of Discharge Admission Diagnosis Admission Diagnosis Dental Pain Poor Dentition Facial Swelling Elevated Bilirubin Type II Diabetes CAD Hx of SD Discharge Diagnosis Dental Pain Poor Dentition Facial Swelling Elevated Bilirubin Type II Diabetes CAD Hx of SD Patient was placed in observation overnight and given IV abx. He had no abscess on CT scan performed in the ED. He does have very poor dentition, but the patient reports this is nothing new. He is a known diabetic. His mouth was inspected and no overt concerns for infection were noted and patient has been afebrile with normal white count. He does have some facial swelling, but he does report that this has improved since last night. He is able to tolerate PO intake without difficulty. We will plan to discharge him to home on his routine medications as well as with oral pain medication and have him follow up shortly with the dental clinic, and contact the polymerization engineer provider or return to the ED if he develops fever or pain unresolved by the prescribed medications. While there are no overt signs of infection, we will discharge him on PO antibiotics as a precaution as well. Chief Complaint/HPI Chief Complaint/HPI Patient presented to ED last night with pain and swelling of left jaw/face. He reports that it just started; he has a history of bad dentition, but has not had anything like this. No broken teeth or lost fillings that he is aware of. Denies any fever or chills. Reports the swelling has gone down quite a bit today compared to when he came in last night. No trouble eating or drinking, no trouble swallowing. Discharge Summary-OBS Procedures None. Discharge Physical Examination Allergies: Coded Allergies: No Known Drug Allergies (Unverified , 07/06/16) Vitals & I&Os Vital Sign - Last 12Hours Date Time Temp Pulse Resp B/P (MAP) Pulse Ox O2 Delivery O2 Flow Rate FiO2 09/15/17 12:00 100.1 112 22 141/91 (108) 98 Room Air General Appearance: Alert, Oriented X3, Cooperative, No Acute Distress HEENT: Atraumatic, EOMI, Mucous Memb Moist/[place], Other (left sided facial edema ; multiple broken teeth) Respiratory: Clear to Auscultation, Normal Air Movement Cardiovascular: Regular Rate, Normal S1, Normal S2 Abdominal: Normal Bowel Sounds, Soft, No Tenderness, No Hepatosplenomegaly Extremities: No Clubbing, No Edema, Normal Pulses Skin: No Rashes, No Significant Lesion Neuro: Normal Gait, Normal Speech, Normal Tone, Sensation Intact, Cranial Nerves 3-12 NL Psych/Mental Status: Mental Status NL, Mood NL Hospital Course Labs Laboratory Tests 09/14/17 23:10: White Blood Count 10.4, Red Blood Count 5.45, Hemoglobin 16.6, Hematocrit 46, Mean Corpuscular Volume 84, Mean Corpuscular Hemoglobin 31, Mean Corpuscular Hemoglobin Concent 37H, Red Cell Distribution Width 12.7, Platelet Count 226, Mean Platelet Volume 10.3, Neutrophils (%) (Auto) 76H, Lymphocytes (%) (Auto) 13 , Monocytes (%) (Auto) 10, Eosinophils (%) (Auto) 1, Basophils (%) (Auto) 0, Neutrophils # (Auto) 7.9H, Lymphocytes # (Auto) 1.3, Monocytes # (Auto) 1.0, Eosinophils # (Auto) 0.1, Basophils # (Auto) 0.0, Prothrombin Time 12.7, INR Comment 0.9, Activated Partial Thromboplast Time 26, Sodium Level 137, Potassium Level 4.0, Chloride Level 106, Carbon Dioxide Level 17L, Anion Gap 14 , Blood Urea Nitrogen 10, Creatinine 0.90, Estimat Glomerular Filtration Rate > 60, BUN/Creatinine Ratio 11, Glucose Level 92, Calcium Level 9.8, Total Bilirubin 0.9, Aspartate Amino Transf (AST/SGOT) 24, Alanine Aminotransferase ( ALT/SGPT) 25, Alkaline Phosphatase 65, Total Protein 7.8, Albumin 4.6H, Amylase Level 48, Lipase 30 09/15/17 00:10: Lactic Acid Level 2.00 09/15/17 05:15: White Blood Count 10.1, Red Blood Count 5.00, Hemoglobin 15.2, Hematocrit 42, Mean Corpuscular Volume 84, Mean Corpuscular Hemoglobin 30, Mean Corpuscular Hemoglobin Concent 36, Red Cell Distribution Width 12.6, Platelet Count 204, Mean Platelet Volume 10.3, Neutrophils (%) (Auto) 77H, Lymphocytes (%) (Auto) 12 , Monocytes (%) (Auto) 10, Eosinophils (%) (Auto) 0, Basophils (%) (Auto) 0, Neutrophils # (Auto) 7.8, Lymphocytes # (Auto) 1.2, Monocytes # (Auto) 1.1H, Eosinophils # (Auto) 0.0, Basophils # (Auto) 0.0, Sodium Level 139, Potassium Level 3.9, Chloride Level 104, Carbon Dioxide Level 24, Anion Gap 11, Blood Urea Nitrogen 10, Creatinine 0.93, Estimat Glomerular Filtration Rate > 60, BUN/ Creatinine Ratio 11, Glucose Level 119H, Calcium Level 8.9, Total Bilirubin 1.2H , Aspartate Amino Transf (AST/SGOT) 13, Alanine Aminotransferase (ALT/SGPT) 20, Alkaline Phosphatase 57, Total Protein 6.7, Albumin 4.2 09/15/17 10:51: Glucometer 127H Radiology Reviewed Date of Exam: 09/14/17 CT MAXILLOFACIAL W Clinical indication: Patient with left-sided facial swelling and lower jaw dental pain. Exam: Axial CT scan of the maxillofacial structures performed with 100 cc of Omnipaque 350 IV contrast. Coronal and sagittal reformatted images were created. Comparison: None. Findings: There is no maxillofacial fracture seen. There is multiple periapical erosions seen and dental caries predominantly involving the bilateral maxillary and bilateral mandibular molar and premolar teeth. There is also note of bony sclerotic changes involving the right mandibular body region adjacent to the teeth which may be related to chronic infection or inflammatory changes. There is a moderate amount of soft tissue swelling seen laterally adjacent to the left mandibular body with soft tissue swelling seen. There is no measurable low-density fluid collection seen which would be drainable. There is significant periapical erosions seen adjacent to the mandibular left first molar tooth and this tooth may be the culprit for the adjacent inflammatory changes. There is prominent reactive lymph nodes seen in the bilateral submandibular regions (left side more than the right). There is no other significant head and neck abnormality seen on this exam. The orbits and globes are unremarkable. The visualized portion of the oral cavity, sublingual space and tongue are grossly unremarkable. The nasopharynx, oropharynx, hypopharynx, and visualized portions of the larynx are grossly unremarkable. Neck vascular structures are unremarkable. Bilateral salivary glands show no significant abnormality. Visualized intracranial structures are unremarkable. There is moderate lobulated mucosal thickening involving both maxillary sinuses and minimal mucosal thickening in the ethmoid sinus. The temporal bone structures show no significant abnormality. Impression: 1: Poor dentition with multiple periapical erosions involving the maxillary and mandibular teeth bilaterally, and a moderate amount of phlegmonous soft tissue seen lateral to the left mandibular body. There is no measurable abscess in the soft tissue. The mandibular left first molar tooth show significant periapical erosions and may represent the culprit for soft tissue inflammation. 2: Mild reactive lymph nodes seen bilaterally (left side more than the right). 3: Mild to moderate paranasal sinus disease. I agree with [facility] report. Discharge Condition at discharge stable Instructions to patient/family Please see electronic discharge instructions given to patient. Discharge Medications Reviewed and agree with Discharge Medication list on patient's Discharge Instruction sheet Clinical Quality Measures DVT/VTE Risk/Contraindication: Risk Factor Score Per Nursin RFS Level Per Nursing on Admit: 3=High Copy Copies To 1: NADEGE SANTA MD, MARGARET E DO Sep 15, 2017 13:28
[2017-09-15] MEDS ORDERED: AMOX-358 PO (13:46)
[2017-09-15] MEDS ORDERED: BENZ12SO MM (13:46)
[2017-09-15] MEDS ORDERED: TRAM50TA2 PO (13:46)
--- NOTE | 2017-09-15 13:50 | Discharge Instructions ---
Discharge [facility] Discharge Medications New, Converted or Re-Newed RX: Transmitted to Pharmacy New Medications: Amoxicillin/Potassium Clav (Augmentin 875-125 Tablet) 1 Each Tablet 1 EACH PO BID WITH MEALS for 10 Days, #20 TAB Benzocaine (Oral Analgesic) 12 Ml Solution 12 ML MM Q4H PRN for PAIN-MILD TO MODERATE for 10 Days, #120 ML 0 Refills Tramadol HCl (Tramadol HCl) 50 Mg Tablet 50 MG PO Q6H PRN for PAIN-MODERATE TO SEVERE for 7 Days, #20 TAB 0 Refills Continued Medications: Aspirin (Aspirin EC) 81 Mg Tablet.dr 81 MG PO DAILY, TAB Atorvastatin Calcium (Atorvastatin Calcium) 10 Mg Tablet 10 MG PO HS, TAB Glyburide (Glyburide) 1.25 Mg Tablet 1.25 MG PO BID, TAB Lisinopril (Lisinopril) 30 Mg Tablet 30 MG PO HS, TAB Metoprolol Tartrate (Metoprolol Tartrate) 50 Mg Tablet 50 MG PO BID, TAB Ticagrelor (Brilinta) 90 Mg Tablet 90 MG PO BID, TAB Patient Instructions Patient Instructions -take medications as prescribed -keep follow up appointments as scheduled -brush teeth after eating meals, when getting up in the morning and before going to bed Goal/Follow Up Appt: [facility] 09/22/17 at 12:00 Dr. Al 09/24/18 at 11:20 Return to The Hospital For: chest pain or pressure, shortness of breath outside of normal, nausea or vomiting that makes you unable to keep down ice chips or clear liquids for more than 12 hours, fever >101 that is not relieved by tylenol or ibuprofen, if directed by environmental communications specialist provider, or with any other emergent complaints or concerns. Activity & Diet Discharge Diet: ADA Diet, Cardiac Diet Activity as Tolerated: Yes Orders-Post D/C & Referrals Pneu Vac Indicated: Yes Copy Copies To 1: NADEGE AL MD, MARGARET E DO Sep 15, 2017 13:50
[2017-09-15] MEDS ORDERED: glyBURIDE 2.5 MG (MICRONASE) TAB PO SCH (16:30)
[2017-09-15] MEDS ORDERED: lisINopril 10 MG (PRINIVIL) TABLET PO SCH (21:00)
[2017-09-15] MEDS ORDERED: meTOprolol TARTRATE 50 MG (LOPRESSOR) TAB PO SCH (21:00)
[2017-09-15] MEDS ORDERED: ATORVASTATIN 10 MG (LIPITOR) TABLET PO SCH (21:00)
[2017-09-15] MEDS ORDERED: TICAGRELOR 90 MG TABLET (BRILINTA) PO SCH (21:00)
[2017-09-15] MEDS ORDERED: FAMOTIDINE 20 MG (PEPCID) TABLET PO SCH (21:00)
[2017-09-16] MEDS ORDERED: ASPIRIN E.C. 81 MG (ECOTRIN) TAB PO SCH (09:00)
--- NOTE | 2017-09-21 08:54 | Physician Query-Final Dx ---
LEIF PASTRANA 09/21/17 0854: Final Diagnosis Give Final Diagnosis Please give Final Diagnosis NEGRA PEACE DO 09/23/17 1547: Final Diagnosis Give Final Diagnosis Dental Pain Poor Dentition Facial Swelling Elevated Bilirubin Type II Diabetes CAD Hx of [place] ELIF PASTRANA Sep 21, 2017 08:54 NEGRA PEACE DO Sep 23, 2017 15:47
== END 2017-09-15 13:47 | disposition home or self-care (01) ==
LOC: EDUNIT# 22:54 → ER 22:55 → 4TH 22:56 → UNDOADMOB 09-15 00:01 → 4TH 09-15 00:01 → UNDODISOB 09-15 14:35
PROVIDERS: ADMIT Family Medicine; ATTEND Family Medicine
DX: L03.211 Cellulitis of face (principal); K08.89 Other specified disorders of teeth and supporting structures; R79.89 Other specified abnormal findings of blood chemistry; E11.9 Type 2 diabetes mellitus without complications; I25.10 Atherosclerotic heart disease of native coronary artery without angina pectoris; I25.2 Old myocardial infarction
CPT/HCPCS: 36415; 70487; 80053; 82150; 82962; 83605; 83690; 85025; 85610; 85730; 87040; 96365; 96375; G0378

== ENCOUNTER → 2018-02-03 | Outpatient (CLI) | payer OTHER ==
[~2018-02-03] VITALS: Ht 188 cm; Wt 108.0 kg
[~2018-02-03] MED LIST changes: +AMOX-358 PO; +BENZ12SO MM; +CATHETER FLUSH 10 ML SYR IV PRN; +LISI30TA5 PO; +METO50TA15 PO; +TRAM50TA2 PO
[2018-02-03 13:05] VITALS: BP 146/97
--- NOTE | 2018-02-03 22:38 | STRESS TEST ---
DATE OF SERVICE: 02/03/2018 EXERCISE MYOVIEW STRESS TEST REPORT INDICATION: Chest pain, coronary artery disease. Baseline heart rate is 79, baseline blood pressure 148/93. Baseline EKG is sinus rhythm with no ischemic changes. In summary, the patient was injected with 10.25 mCi of technetium-99 Myoview and the resting images were obtained. Then, the patient started exercising with a baseline heart rate, blood pressure and EKG mentioned above. At peak exercise level, the patient was injected with 30.7 mCi of technetium-99 Myoview. The patient was able to exercise for a total of 5 minutes and 30 seconds on standard Mike protocol, achieving maximum heart rate of 152. With peak exercise level, blood pressure was 196/100. EKG was showing minimal nondiagnostic changes. During recovery, heart rate and blood pressure returned to baseline. EKG returned to baseline. The resting and stress images were reviewed and compared in the short axis, horizontal long axis and vertical long axis views. Review of the images showed good radiotracer uptake with no significant ischemia or infarction. SSS is 2, SDS 1, TID value 1.05. On the gated images, the left ventricle appeared to be normal size with normal contractility. Calculated ejection fraction 60%. CONCLUSION: 1. Good exercise tolerance, a total of 5 minutes 30 seconds on standard Mike protocol, achieving 86% of maximum expected heart rate. 2. Hypertensive response to exercise, returned to baseline during recovery. 3. Minimal nondiagnostic EKG changes with exercise returned to baseline during recovery. 4. No ischemia or infarction on SPECT images. 5. Normal left ventricular size with normal contractility. Calculated ejection fraction 60%. Job ID: [id number] DocumentID: [id number] Dictated Date: 02/03/2018 17:10:27 Apple Peeler Operator Date: 02/03/2018 22:37:46 Dictated By: LEONARDO ROSS MD
== END ==
LOC: CARD 10:50
PROVIDERS: ATTEND Internal Medicine Cardiovascular Disease
DX: I25.10 Atherosclerotic heart disease of native coronary artery without angina pectoris (principal); I16.1 Hypertensive emergency; I10 Essential (primary) hypertension; R07.89 Other chest pain; E11.9 Type 2 diabetes mellitus without complications; I08.2 Rheumatic disorders of both aortic and tricuspid valves
CPT/HCPCS: 78452; 93017; 93306

== ENCOUNTER 2019-05-23 00:04 | Inpatient (IN) | payer SELFPAY ==
[2019-05-23] VITALS (25 sets, daily range): BP systolic 70–133; BP diastolic 62–89
[~2019-05-23] VITALS: Ht 185 cm; Wt 113.0 kg
[~2019-05-23 00:04] MED LIST changes: -CATHETER FLUSH 10 ML SYR IV PRN
[2019-05-23] MEDS ORDERED: ENOXAPARIN 80 MG/0.8 ML (LOVENOX) SYR SC ONE (00:15)
[2019-05-23] MEDS ORDERED: ENOXAPARIN 30 MG/0.3 ML (LOVENOX) SYR SC ONE (00:15)
[2019-05-23] MEDS ORDERED: ASPIRIN 81 MG CHEW (CHILDREN'S ASA) PO ONE (00:15)
[2019-05-23] MEDS ORDERED: DILTIAZEM 25 MG/5 ML INJ (CARDIZEM) VIAL IVP ONE (00:15)
[2019-05-23] MEDS ORDERED: DILTIAZEM IV FOR DRIP 125 MG in NS (IVPB) 100 ML IV SCH (00:15)
[2019-05-23 00:20] LABS: HEMATOCRIT 48 % (40-54); HEMOGLOBIN 16.5 G/DL (13.3-17.7); MEAN CORPUSCULAR HEMOGLOBIN 30 PG (25-34); MEAN CORPUSCULAR VOLUME 87 FL (80-99); WHITE BLOOD COUNT 6.1 10^3/uL (4.3-11.0)
[2019-05-23 00:21] LABS: BASOPHILS % (AUTO) 1 % (0-10); EOSINOPHILS # (AUTO) 0.1 10^3/uL (0.0-0.3); EOSINOPHILS % (AUTO) 2 % (0-10); LYMPHOCYTES # (AUTO) 1.6 X 10^3 (1.0-4.0); LYMPHOCYTES % (AUTO) 26 % (12-44); MEAN CORPUSCULAR HGB CONC 34 G/DL (32-36); MEAN PLATELET VOLUME 10.3 FL (7.4-10.4); MONOCYTES # (AUTO) 0.7 X 10^3 (0.0-1.0); MONOCYTES % (AUTO) 12 % (0-12); NEUTROPHILS # (AUTO) 3.6 X 10^3 (1.8-7.8); NEUTROPHILS % (AUTO) 60 % (42-75); PLATELET COUNT 207 10^3/uL (130-400); RED CELL DISTRIBUTION WIDTH 12.2 % (10.0-14.5)
--- NOTE | 2019-05-23 00:21 | ED Cardiac General ---
History of Present Illness General Chief Complaint: Cardiac/General Problems Stated Complaint: HEART RACING Nursing Triage Note: PT STATES HE FEELS LIKE HIS HEART IS RACING. STARTED AROUND 2200 LAST NIGHT Source: patient, other Exam Limitations: no limitations History of Present Illness Date Seen by Provider: May 23, 2019 Time Seen by Provider: 00:05 Initial Comments Patient presents to ER by private conveyance with his significant other and chief complaint of racing, irregular heart rate for the past 3 hours that he woke up from sleep with. He was not doing anything strenuous at the time. He does not smoke but he does chew tobacco. He has a history of [place] and is followed by Dr. Stiles. He was recently taken off Brilinta and is still on aspirin. He is not having any chest pain shortness of breath fever chills cough. Is a history of hypertension but no stroke. He is not on blood thinners. He has never had atrial fibrillation in the past. He has a history of a stent. He has diabetes, hyperlipidemia but no history of thyroid disorder. He does drink Mountain Dew and tea. He denies a history of recreational drug abuse. While he does not endorse any chest pain he is endorsing some tightness in his neck bilateral posterior starting about the same time of the palpitations and racing heart rate. PCP: Dr Santa. Negative stress test January 2018. Echocardiogram January [address] Stiles: EF 55-65%. Cavity size is normal wall thickness is increased hypertrophy is noted. Allergies and Home Medications Allergies Coded Allergies: No Known Drug Allergies (Unverified , 07/06/16) Home Medications Amoxicillin/Potassium Clav 1 Each Tablet, 1 EACH PO BID WITH MEALS Prescribed by: NEGRA PEACE on 09/15/17 1346 Aspirin 81 Mg Tablet.dr 81 MG PO DAILY, (Reported) Atorvastatin Calcium 10 Mg Tablet, 10 MG PO HS, (Reported) Benzocaine 12 Ml Solution, 12 ML MM Q4H PRN for PAIN-MILD TO MODERATE Prescribed by: NEGRA PEACE on 09/15/17 1346 Glyburide 1.25 Mg Tablet, 1.25 MG PO BID, (Reported) Lisinopril 30 Mg Tablet, 30 MG PO HS, (Reported) Metoprolol Tartrate 50 Mg Tablet, 50 MG PO BID, (Reported) Ticagrelor 90 Mg Tablet, 90 MG PO BID, (Reported) Tramadol HCl 50 Mg Tablet, 50 MG PO Q6H PRN for PAIN-MODERATE TO SEVERE Prescribed by: NEGRA PEACE on 09/15/17 1346 Patient Home Medication List Home Medication List Reviewed: Yes Review of Systems Review of Systems Constitutional: No chills, No diaphoresis, No fever EENTM: No Blurred Vision, No Double Vision Respiratory: Denies Cough, Denies Shortness of Air Cardiovascular: See HPI; Denies Chest Pain, Denies Edema; Irregular Heart Rate, Palpitations; Denies Syncope Gastrointestinal: Denies Abdomen Distended, Denies Abdominal Pain Genitourinary: Denies Burning, Denies Discharge Musculoskeletal: No back pain, No joint pain Skin: No pruritus, No rash Psychiatric/Neurological: Denies Headache, Denies Numbness, Denies Paresthesia All Other Systems Reviewed Negative Unless Noted: Yes Past Orqqdmq-Flhqpj-Gxlaqz Hx Patient Social History Alcohol Use: Occasionally Uses Alcohol Beverage of Choice: Beer Recreational Drug Use: No Smoking Status: Never a Smoker Type Used: Smokeless Tobacco Recent Foreign Travel: No Contact w/Someone Who Travel: No Recent Infectious Disease Expo: No Recent Hopitalizations: No Physical Abuse: No Sexual Abuse: No Mistreated: No Seasonal Allergies Seasonal Allergies: No Past Medical History Surgeries: Yes (CARDIAC CATH--STENT X 1) Cardiac, Coronary Stent Respiratory: No Currently Using CPAP: No Currently Using BIPAP: No Cardiac: Yes (CARDIAC STENT X1) Coronary Artery Disease, High Cholesterol, Hypertension Neurological: No Reproductive Disorders: No Genitourinary: No Gastrointestinal: No Musculoskeletal: Yes Fractures Endocrine: Yes Diabetes, Non-Insulin dep HEENT: No Loss of Vision: Denies Cancer: No Psychosocial: No Integumentary: No Blood Disorders: No Family Medical History Not obtainable due to adoption No Pertinent Family Hx Physical Exam Vital Signs Vital Signs - First Documented 05/23/19 00:08 Temp 36.4 Pulse 135 Resp 20 B/P (MAP) 151/98 (115) Pulse Ox 97 O2 Delivery Room Air Capillary Refill : Less Than 3 Seconds Height, Weight, BMI Height: 6'2.00" Weight: 238lbs. 0.0oz. 107.782334lu; 33.00 BMI Method:Stated General Appearance: No Apparent Distress, WD/WN HEENT: PERRL/EOMI, Pharynx Normal, Moist Mucous Membranes Neck: Full Range of Motion, Normal Inspection, Tender Lateral (posteriorly bilateral, mild without erythema, nodules, rash etc.) Respiratory: Chest Non Tender, Lungs Clear, Normal Breath Sounds, No Accessory Muscle Use, No Respiratory Distress Cardiovascular: No Gallop, No JVD, No Murmur, Normal Peripheral Pulses, Irregularly Irregular, Tachycardia Gastrointestinal: Normal Bowel Sounds, Non Tender, Soft Extremity: Normal Capillary Refill, Normal Inspection, Normal Range of Motion, No Pedal Edema Neurologic/Psychiatric: Alert, Oriented x3, Normal Mood/Affect Skin: Normal Color, Warm/Dry Progress/Results/Core Measures Results/Orders Lab Results Laboratory Tests Test 05/23/19 00:10 Range/Units White Blood Count 6.1 4.3-11.0 10^3/uL Red Blood Count 5.55 4.35-5.85 10^6/uL Hemoglobin 16.5 13.3-17.7 G/DL Hematocrit 48 40-54 % Mean Corpuscular Volume 87 80-99 FL Mean Corpuscular Hemoglobin 30 25-34 PG Mean Corpuscular Hemoglobin Concent 34 32-36 G/DL Red Cell Distribution Width 12.2 10.0-14.5 % Platelet Count 207 130-400 10^3/uL Mean Platelet Volume 10.3 7.4-10.4 FL Neutrophils (%) (Auto) 60 42-75 % Lymphocytes (%) (Auto) 26 12-44 % Monocytes (%) (Auto) 12 0-12 % Eosinophils (%) (Auto) 2 0-10 % Basophils (%) (Auto) 1 0-10 % Neutrophils # (Auto) 3.6 1.8-7.8 X 10^3 Lymphocytes # (Auto) 1.6 1.0-4.0 X 10^3 Monocytes # (Auto) 0.7 0.0-1.0 X 10^3 Eosinophils # (Auto) 0.1 0.0-0.3 10^3/uL Basophils # (Auto) 0.0 0.0-0.1 10^3/uL Prothrombin Time 12.1 L 12.2-14.7 SEC INR Comment 0.9 0.8-1.4 Activated Partial Thromboplast Time 24 24-35 SEC Sodium Level 140 135-145 MMOL/L Potassium Level 3.7 3.6-5.0 MMOL/L Chloride Level 102 98-107 MMOL/L Carbon Dioxide Level 26 21-32 MMOL/L Anion Gap 12 5-14 MMOL/L Blood Urea Nitrogen 11 7-18 MG/DL Creatinine 0.84 0.60-1.30 MG/DL Estimat Glomerular Filtration Rate > 60 BUN/Creatinine Ratio 13 Glucose Level 224 H 70-105 MG/DL Calcium Level 9.1 8.5-10.1 MG/DL Corrected Calcium 8.7 8.5-10.1 MG/DL Total Bilirubin 0.2 0.1-1.0 MG/DL Aspartate Amino Transf (AST/SGOT) 15 5-34 U/L Alanine Aminotransferase (ALT/SGPT) 26 0-55 U/L Alkaline Phosphatase 108 40-136 U/L Troponin I < 0.30 <0.30 NG/ML Total Protein 7.2 6.4-8.2 GM/DL Albumin 4.5 3.2-4.5 GM/DL My Orders Orders - JOSE WELLS Cbc With Automated Diff (05/23/19:) Comprehensive Metabolic Panel (05/23/19:15) Troponin I Fs (05/23/19:15) Continuous Ekg Monitoring (05/23/19:) Ekg Tracing (05/23/19:15) Ua Culture If Indicated (05/23/19:15) Drug Screen Stat (Urine) (05/23/19:15) Protime With Inr (05/23/19:15) Partial Thromboplastin Time (05/23/19:15) Enoxaparin Injection (Lovenox Injection) (05/23/19:15) Enoxaparin Injection (Lovenox Injection) (05/23/19:15) Diltiazem Injection (Cardizem Injection) (05/23/19:15) Ns (Ivpb) (Sodium C... W/Diltiazem Iv Fo (05/23/19:15) Aspirin Chewable Tablet (Baby Aspirin Ch (05/23/19:15) Chest 1 View Ap/Pa Only (05/23/19 00:35) Ed Iv/Invasive Line Start (05/23/19 00:41) Apixaban Tablet (Eliquis Tablet) (05/23/19 01:00) Amiodarone For Bolus (Cordarone Bolus) (05/23/19 01:00) Amiodarone Injection (Cordarone Injectio (05/23/19 01:00) Medications Given in ED Current Medications Medications Dose Ordered Sig/Cayden Route Start Time Stop Time Status Last Admin Dose Admin Aspirin 324 mg ONCE ONCE PO 05/23/19 00:15 05/23/19 00:19 DC 05/23/19 00:27 324 MG Diltiazem HCl 20 mg ONCE ONCE IVP 05/23/19 00:15 05/23/19 00:19 DC 05/23/19 00:27 20 MG Vital Signs/I&O 05/23/19 05/23/19 00:08 00:32 Temp 36.4 Pulse 135 110 Resp 20 18 B/P (MAP) 151/98 (115) 151/116 Pulse Ox 97 95 O2 Delivery Room Air Blood Pressure Mean: 115 POS Progress Progress Note #1: Time: 00:26 Progress Note On initial examination was determined he was in a rapid ventricular response from novel onset atrial fibrillation. 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 He is already on antiplatelets. [id number] score is 3 points which is moderate risk and would probably indicate he has a good candidate for anticoagulation. Plan to get some labs and give him some aspirin to chew up and case is having an atypical anginal event with his neck soreness although it is reproducible to direct palpation and therefore more likely musculoskeletal. Initial EKG does not show any ST changes. 20 mg Cardizem followed by Cardizem drip and consultation for inpatient management. Progress Note #2: Time: 01:07 Progress Note Atria score is 1., low risk 0.76% and we will risk of hemorrhage. Reasonable to start anticoagulants. 150 mg amiodarone bolus followed by a milligram per minute for 6 hours. Initial ECG Impression Date: May 23, 2019 Initial ECG Impression Time: 00:09 Initial ECG Rate: 120 Initial ECG Rhythm: A Fib/Flutter Initial ECG Intervals: QT (445) Initial ECG Impression: Atrial Fibrillation w/RVR Comment Atrial fibrillation with rapid ventricular response and no clinically significant ST elevation or depression. Diagnostic Imaging Diagonstic Imaging: Xray Plain Films/CT/US/NM/MRI: chest (1v) Comments No acute cardiopulmonary process noted. Deep sulcus noted on the right side of uncertain significance. Reviewed: Reviewed by Me Departure Communication (Admissions) Time/Spoke to Admitting Phy: 00:55 Dr Rashid: Discussed case lab imaging findings and she agrees with cardiac consultation and unit placement on Cardizem. Time/Spoke to Consulting Phy: 00:57 Discussed case lab EKG findings with Dr. Zavaleta and he would like us to start amiodarone bolus and infusion tonight as well as Cardizem and Eliquis. Impression Primary Impression: Atrial fibrillation with rapid ventricular response Disposition: ADMITTED INPATIENT Condition: Critical Admissions Decision to Admit Reason: Admit from ER (General) Decision to Admit/Date: May 23, 2019 Time/Decision to Admit Time: 00:45 Departure-Patient Inst. Referrals: NADEGE SANTA MD (PCP/Family) Primary Care Physician JOSE WELLS May 23, 2019 00:21 POS
[2019-05-23 00:32] LABS: INR 0.9 (0.8-1.4); PROTHROMBIN TIME PATIENT 12.1 SEC (12.2-14.7)
[2019-05-23 00:41] LABS: ALANINE AMINOTRANSFERASE 26 U/L (0-55); ALBUMIN 4.5 GM/DL (3.2-4.5); ALKALINE PHOSPHATASE 108 U/L (40-136); BILIRUBIN,TOTAL 0.2 MG/DL (0.1-1.0); BUN/CREATININE RATIO 13; CALCIUM 9.1 MG/DL (8.5-10.1); CARBON DIOXIDE 26 MMOL/L (21-32); CHLORIDE 102 MMOL/L (98-107); CREATININE SERUM 0.84 MG/DL (0.60-1.30); GFR ESTIMATED > 60; GLUCOSE 224 MG/DL (70-105); POTASSIUM 3.7 MMOL/L (3.6-5.0); SODIUM 140 MMOL/L (135-145); TOTAL PROTEIN 7.2 GM/DL (6.4-8.2)
[2019-05-23] MEDS ORDERED: AMIODARONE INJECTION 450 MG in D5W IV SOLUTION (EXCEL) 250 ML IV SCH (01:00)
[2019-05-23] MEDS ORDERED: APIXABAN 5 MG (ELIQUIS) TABLET PO ONE (01:00)
[2019-05-23] MEDS ORDERED: AMIODARONE FOR BOLUS 150 MG in D5W 100 ML IVPB 100 ML IV ONE (01:00)
--- NOTE | 2019-05-23 02:40 | NUR ---
MAURICIO HARRINGTON admitted to room CU5-1, with an admitting diagnosis of afib rvr, on 05/23/19 from [facility] ED via EMS, accompanied by Mihir Christy.MAURICIO HARRINGTON introduced to surroundings, call light, bed controls, phone, TV, temperature control, lights, meal times, smoking policy, visitor policy, side rail policy, bathrooms and showers. Patient Rights given to patient in the handbook. MAURICIO HARRINGTON verbalizes understanding that [facility] is not responsible for the loss or damage to any personal effects or valuables that are kept in the patients possession during their hospitalization. The following Patient Care Plans were discussed with the patient: Discharge Planning, pain,activity, and medication. MAURICIO HARRINGTON verbalizes understanding of Interdisciplinary Patient Education. Patient and/or family were informed about the Rapid Response Team and its purpose.
[2019-05-23 03:33] LABS: BASOPHILS % (AUTO) 0 % (0-10); EOSINOPHILS # (AUTO) 0.1 10^3/uL (0.0-0.3); EOSINOPHILS % (AUTO) 2 % (0-10); HEMATOCRIT 44 % (40-54); HEMOGLOBIN 15.8 G/DL (13.3-17.7); LYMPHOCYTES # (AUTO) 1.4 X 10^3 (1.0-4.0); LYMPHOCYTES % (AUTO) 25 % (12-44); MEAN CORPUSCULAR HEMOGLOBIN 30 PG (25-34); MEAN CORPUSCULAR HGB CONC 36 G/DL (32-36); MEAN CORPUSCULAR VOLUME 84 FL (80-99); MEAN PLATELET VOLUME 10.7 FL (7.4-10.4); MONOCYTES # (AUTO) 0.7 X 10^3 (0.0-1.0); MONOCYTES % (AUTO) 13 % (0-12); NEUTROPHILS # (AUTO) 3.2 X 10^3 (1.8-7.8); NEUTROPHILS % (AUTO) 59 % (42-75); PLATELET COUNT 199 10^3/uL (130-400); RED CELL DISTRIBUTION WIDTH 12.6 % (10.0-14.5); WHITE BLOOD COUNT 5.4 10^3/uL (4.3-11.0)
[2019-05-23 03:59] LABS: ALANINE AMINOTRANSFERASE 27 U/L (0-55); ALBUMIN 4.2 GM/DL (3.2-4.5); ALKALINE PHOSPHATASE 71 U/L (40-136); BILIRUBIN,TOTAL 0.5 MG/DL (0.1-1.0); BUN/CREATININE RATIO 13; CALCIUM 8.5 MG/DL (8.5-10.1); CARBON DIOXIDE 22 MMOL/L (21-32); CHLORIDE 105 MMOL/L (98-107); GFR ESTIMATED > 60; GLUCOSE 154 MG/DL (70-105); PHOSPHORUS 3.4 MG/DL (2.3-4.7); POTASSIUM 3.7 MMOL/L (3.6-5.0); SODIUM 141 MMOL/L (135-145); TOTAL PROTEIN 6.6 GM/DL (6.4-8.2)
--- NOTE | 2019-05-23 04:45 | Pulmonary Consultation ---
History of Present Illness History of Present Illness Date of Admission Allergies and Home Medications Allergies Coded Allergies: No Known Drug Allergies (Unverified , 07/06/16) Home Medications Amoxicillin/Potassium Clav 1 Each Tablet, 1 EACH PO BID WITH MEALS Prescribed by: NEGRA PEACE on 09/15/17 1346 Aspirin 81 Mg Tablet.dr, 81 MG PO DAILY, (Reported) Atorvastatin Calcium 10 Mg Tablet, 10 MG PO HS, (Reported) Benzocaine 12 Ml Solution, 12 ML MM Q4H PRN for PAIN-MILD TO MODERATE Prescribed by: NEGRA PEACE on 09/15/17 1346 Glyburide 1.25 Mg Tablet, 1.25 MG PO BID, (Reported) Lisinopril 30 Mg Tablet, 30 MG PO HS, (Reported) Metoprolol Tartrate 50 Mg Tablet, 50 MG PO BID, (Reported) Ticagrelor 90 Mg Tablet, 90 MG PO BID, (Reported) Tramadol HCl 50 Mg Tablet, 50 MG PO Q6H PRN for PAIN-MODERATE TO SEVERE Prescribed by: NEGRA PEACE on 09/15/17 1346 Past Xgqmpyh-Csqovk-Woimbm Hx Patient Social History Alcohol Use: Occasionally Uses Alcohol Beverage of Choice: Beer Recreational Drug Use: No Smoking Status: Never a Smoker Type Used: Smokeless Tobacco 2nd Hand Smoke Exposure: No Recent Foreign Travel: No Contact w/Someone Who Travel: No Recent Infectious Disease Expo: No Recent Hopitalizations: No Physical Abuse: No Sexual Abuse: No Mistreated: No Immunizations Up To Date Date of Influenza Vaccine: Mar 30, 2019 Seasonal Allergies Seasonal Allergies: No Past Medical History Surgeries: Yes (CARDIAC CATH--STENT X 1) Cardiac, Coronary Stent Respiratory: No Currently Using CPAP: No Currently Using BIPAP: No Cardiac: Yes (CARDIAC STENT X1) Coronary Artery Disease, High Cholesterol, Hypertension Neurological: No Reproductive Disorders: No Genitourinary: No Gastrointestinal: No Musculoskeletal: Yes Fractures Endocrine: Yes Diabetes, Non-Insulin dep HEENT: No Loss of Vision: Denies Cancer: No Psychosocial: No Integumentary: No Blood Disorders: No Family Medical History Not obtainable due to adoption No Pertinent Family Hx Sepsis Event Evaluation Height, Weight, BMI Height: 6'2.00" Weight: 238lbs. 0.0oz. 107.422913rx; 33.45 BMI Method:Stated Exam Exam Vital Signs Date Time Temp Pulse Resp B/P (MAP) Pulse Ox O2 Delivery O2 Flow Rate FiO2 05/23/19 04:39 Nasal Cannula 2.00 05/23/19 04:00 84 15 70/89 (83) 97 Room Air 05/23/19 03:50 95 Room Air 05/23/19 03:45 92 16 109/77 (88) 94 Room Air 05/23/19 03:30 93 13 103/68 (80) 95 Room Air 05/23/19 03:15 93 14 102/84 (90) 97 Room Air 05/23/19 03:00 101 13 119/80 (93) 97 Room Air 05/23/19 02:49 103 05/23/19 02:45 36.8 109 18 133/89 (104) 95 Room Air 05/23/19 02:40 95 Room Air 05/23/19 01:46 95 18 109/74 95 Room Air 05/23/19 00:32 110 18 151/116 95 05/23/19 00:08 36.4 135 20 151/98 (115) 97 Room Air I & O 05/23/19 07:00 Intake Total 115.8 ml Balance 115.8 ml Height & Weight Height: 6'2.00" Weight: 238lbs. 0.0oz. 107.093842qo; 33.45 BMI Method:Stated General Appearance: No Apparent Distress, WD/WN HEENT: PERRL/EOMI, Pharynx Normal, Moist Mucous Membranes Neck: Full Range of Motion, Normal Inspection, Tender Lateral (posteriorly bilateral, mild without erythema, nodules, rash etc.) Respiratory: Chest Non Tender, Lungs Clear, Normal Breath Sounds, No Accessory Muscle Use, No Respiratory Distress Cardiovascular: No Gallop, No JVD, No Murmur, Normal Peripheral Pulses, Irregularly Irregular, Tachycardia Capillary Refill: Less Than 3 Seconds Extremity: Normal Capillary Refill, Normal Inspection, Normal Range of Motion, No Pedal Edema Neurologic/Psychiatric: Alert, Oriented x3, Normal Mood/Affect Skin: Normal Color, Warm/Dry Results Lab Laboratory Tests 05/23/19 00:10 05/23/19 03:25 Assessment/Plan Assessment/Plan Afib RVR - Currently on Cardizem, and amio gtt -Cardiology consulted Obesity with witnessed apnea, snoring, nocturnal hypoxia -- Pt needs PSG -Rn stats pt desaturates to 77% during sleep. He is currently requiring 2 liters NC -Will try to get home PSG while in hospital JORGE HURST DO May 23, 2019 04:45 POS
[2019-05-23] MEDS: KCL 20 MEQ TAB (K-DUR) PO SCH (05:41)
[2019-05-23] MEDS: POTASSIUM CL 10MEQ/50ML IVPB 50 ML IV SCH (05:41)
[2019-05-23] MEDS: MAGNESIUM 1 GM/100 ML IVPB 100 ML IV SCH (05:41)
[2019-05-23] MEDS ORDERED: ACETAMINOPHEN 500 MG TAB (TYLENOL) PO PRN (05:45)
[2019-05-23] MEDS ORDERED: AMIODARONE 450 MG/250 ML D5W EXCEL IV SCH ×2 (06:00)
[2019-05-23] MEDS ORDERED: inSUlin ASPART (NovoLOG) 1 UNIT/0.01 ML (CHARGE PER UNIT) SC SCH (06:00)
[2019-05-23] MEDS: inSUlin ASPART (NovoLOG) 1 UNIT/0.01 ML (CHARGE PER UNIT) SC SCH ×4 (06:37→20:35)
--- NOTE | 2019-05-23 07:05 | Diagnostic Imaging Report ---
CHEST 1 VIEW AP/PA ONLY Indication: Heart racing Comparison: 07/06/2016 Findings: No focal airspace disease in the visualized lungs. Please note that the posterior lower lobes are poorly evaluated by portable radiography. No pleural effusion or pneumothorax. Normal cardiomediastinal silhouette. Stable asymmetric elevation the right hemidiaphragm. Impression: 1. No acute cardiopulmonary process by portable radiography. Dictated by: Dictated on workstation # [id number]
--- NOTE | 2019-05-23 07:43 | Diagnostic Imaging Report ---
CHEST 1 VIEW, AP/PA ONLY Indication: Atrial fibrillation with rapid ventricular rate. Comparison: Earlier same day at 12:21 AM Findings: No focal airspace disease in the visualized lungs. Please note that the posterior lower lobes are poorly evaluated by portable radiography. No pleural effusion or pneumothorax. Normal cardiomediastinal silhouette. Impression: 1. No acute cardiopulmonary process by portable radiography. Dictated by: Dictated on workstation # [id number]
[2019-05-23] MEDS: DILTIAZEM 125 MG/NS 100 ML IV SCH ×4 (07:46→13:42)
[2019-05-23] MEDS: lisINopril 20 MG (PRINIVIL) TABLET PO SCH (08:08)
[2019-05-23] MEDS: meTOprolol SUCCINATE 100 MG (TOPROL XL) TAB PO SCH (08:09)
[2019-05-23] MEDS: ASPIRIN 81 MG CHEW (CHILDREN'S ASA) PO SCH (08:10)
[2019-05-23] MEDS: APIXABAN 5 MG (ELIQUIS) TABLET PO SCH ×2 (08:10→20:47)
--- NOTE | 2019-05-23 09:10 | Consultation-Cardiology ---
HPI-Cardiology Cardiology Consultation: Date of Consultation 05/23/19 Date of Admission Attending Physician Jes Rashid DO Admitting Physician Ashley Al MD Consulting Physician Jocelin ZAVALETA MD HPI: Time Seen by a Provider: 09:10 Chief Complaint: palpitations. this is a 43-year-old gentleman who has history of diabetes, hyperlipidemia, tobacco use, history of [place] in June 2016 requiring PCI to the left circumflex artery with a drug-eluting stent. His only taking aspirin. He presented with rapid heart beating. No syncope or near syncope. No chest pain or shortness of breath. He presented to the ER and was found to be in atrial fibrillation with rapid ventricular response. The patient had a nuclear stress test which was negative in January 2018. Echocardiogram in January 2018 showed normal EF of 55- 65 percent with mild LVH. Strong possibility of obstructive sleep apnea as well. Review of Systems-Cardiology Review of Systems Constitutional: As described under HPI; No As described under HPI, No no symptoms reported, No chills, No fever, No lightheadedness Eyes: No As described under HPI, No no symptoms reported, No blindness, No blur red vision, No contact lenses, No drainage, No decreased acuity, No foreign body sensation, No pain, No vision change Ears/Nose/Throat: No As described under HPI, No no symptoms reported, No chronic hearing loss, No ear discharge, No ear pain, No nasal drainage, No ulcerations Respiratory: No no symptoms reported; As described under HPI; No As described under HPI, No cough, No orthopnea, No shortness of breath, No SOB with excertion Cardiovascular: No no symptoms reported; As described under HPI; No As described under HPI, No chest pain, No edema, No irregular heart rate, No lightheadedness; palpitations Gastrointestinal: No no symptoms reported, No As described under HPI, No abdomen distended, No abdominal pain, No blood streaked bowels, No constipation, No diarrhea, No nausea, No vomiting, No stool coloration changes Genitourinary: No As described under HPI, No burning, No dysuria, No discharge, No frequency, No flank pain, No hematuria, No urgency Skin: No rash, No skin related problems, No ulcerations Psychiatric/Neurological: No anxiety, No depression, No seizure, No focal weakness, No syncope Hematologic: No bleeding abnormalities All Other Systems Reviewed Negative Unless Noted: Yes LYB-Vwabiw-Slocgg Hx Patient Social History Alcohol Use: Occasionally Uses Recreational Drug Use: No Smoking Status: Never a Smoker Type Used: Smokeless Tobacco 2nd Hand Smoke Exposure: No Recent Foreign Travel: No Recent Infectious Disease Expo: No Immunizations Up To Date Date of Influenza Vaccine: Mar 30, 2019 Past Medical History PMH As described under Assessment. Family Medical History Family History: Not obtainable due to adoption Allergies and Home Medications Allergies Coded Allergies: No Known Drug Allergies (Unverified , 07/06/16) Home Medications Amlodipine Besylate 5 Mg Tablet, 5 MG PO HS, (Reported) Aspirin 81 Mg Tablet.dr, 81 MG PO DAILY, (Reported) Atorvastatin Calcium 10 Mg Tablet, 10 MG PO HS, (Reported) LAST FILLED #90 06-10-18 Glyburide 1.25 Mg Tablet, 1.25 MG PO BID, (Reported) Lisinopril 40 Mg Tablet, 40 MG PO HS, (Reported) Metoprolol Succinate 100 Mg Tab.er.24h, 100 MG PO DAILY, (Reported) Multivitamin 1 Each Tablet, 1 TAB PO DAILY, (Reported) Patient Home Medication List Home Medication List Reviewed: Yes Physical Exam-Cardiology Physical Exam Vital Signs/I&O 05/23/19 05/23/19 05/23/19 05/23/19 00:08 00:32 01:46 02:40 Temp 36.4 Pulse 135 110 95 Resp 20 18 18 B/P (MAP) 151/98 (115) 151/116 109/74 Pulse Ox 97 95 95 95 O2 Delivery Room Air Room Air Room Air 05/23/19 05/23/19 05/23/19 05/23/19 02:45 02:49 03:00 03:15 Temp 36.8 Pulse 109 103 101 93 Resp 18 13 14 B/P (MAP) 133/89 (104) 119/80 (93) 102/84 (90) Pulse Ox 95 97 97 O2 Delivery Room Air Room Air Room Air 05/23/19 05/23/19 05/23/19 05/23/19 03:30 03:45 03:50 04:00 Pulse 93 92 84 Resp 13 16 15 B/P (MAP) 103/68 (80) 109/77 (88) 70/89 (83) Pulse Ox 95 94 95 97 O2 Delivery Room Air Room Air Room Air Room Air 05/23/19 05/23/19 05/23/19 05/23/19 04:39 05:00 05:07 05:50 Pulse 87 Resp 18 B/P (MAP) 107/80 (89) Pulse Ox 98 O2 Delivery Nasal Cannula Nasal Cannula OxyMask OxyMask O2 Flow Rate 2.00 2.00 2.00 4.00 05/23/19 05/23/19 05/23/19 05/23/19 06:00 07:00 07:00 07:00 Temp 36.6 Pulse 85 82 74 Resp 18 12 B/P (MAP) 119/78 (92) 109/72 (84) Pulse Ox 97 95 O2 Delivery OxyMask OxyMask O2 Flow Rate 4.00 4.00 05/23/19 05/23/19 05/23/19 08:00 08:00 09:00 Pulse 102 86 Resp 13 10 B/P (MAP) 115/79 (91) 121/82 (95) Pulse Ox 98 95 92 O2 Delivery OxyMask Room Air OxyMask O2 Flow Rate 4.00 4.00 Capillary Refill : Less Than 3 Seconds Constitutional: appears stated age, AAO x 3; No apparent distress; well- developed, well-nourished HEENT: PERRL; No discharge; hearing is well preserved, oral hygience is good; No ulceration, No xanthelasmas are seen Neck: No carotid bruit; carotid pulses are 2 + bilaterally Respiratory: chest is bilaterally symmetric, lungs clear to auscultation Cardiovascular: irregularly irregular, S1 and S2 Gastrointestinal: soft, audible bowel sounds; No spleenomegaly Rectal: deferred Extremities: normal range of motion, non-tender, normal inspection; No clubbing, No cyanosis; no lower extremity edema bilateral; No significant edema Neurologic/Psychiatric: no motor/sensory deficits, alert, normal mood/affect, oriented x 3, power is 5/5 both on sides Skin: normal color, warm/dry; No rash, No ulcerations Data Review Labs Laboratory Tests 05/23/19 00:10: White Blood Count 6.1, Red Blood Count 5.55, Hemoglobin 16.5, Hematocrit 48, Mean Corpuscular Volume 87, Mean Corpuscular Hemoglobin 30, Mean Corpuscular Hemoglobin Concent 34, Red Cell Distribution Width 12.2, Platelet Count 207, Mean Platelet Volume 10.3, Neutrophils (%) (Auto) 60, Lymphocytes (%) (Auto) 26, Monocytes (%) (Auto) 12, Eosinophils (%) (Auto) 2, Basophils (%) (Auto) 1, Neutrophils # (Auto) 3.6, Lymphocytes # (Auto) 1.6, Monocytes # (Auto) 0.7, Eosinophils # (Auto) 0.1, Basophils # (Auto) 0.0, Prothrombin Time 12.1L, INR Comment 0.9, Activated Partial Thromboplast Time 24, Sodium Level 140, Potassium Level 3.7, Chloride Level 102, Carbon Dioxide Level 26, Anion Gap 12, Blood Urea Nitrogen 11, Creatinine 0.84, Estimat Glomerular Filtration Rate > 60, BUN/Creatinine Ratio 13, Glucose Level 224H, Calcium Level 9.1, Corrected Calcium 8.7, Total Bilirubin 0.2, Aspartate Amino Transf (AST/SGOT) 15, Alanine Aminotransferase (ALT/SGPT) 26, Alkaline Phosphatase 108, Troponin I < 0.30, Total Protein 7.2, Albumin 4.5 05/23/19 03:25: White Blood Count 5.4, Red Blood Count 5.28, Hemoglobin 15.8, Hematocrit 44, Mean Corpuscular Volume 84, Mean Corpuscular Hemoglobin 30, Mean Corpuscular Hemoglobin Concent 36, Red Cell Distribution Width 12.6, Platelet Count 199, Mean Platelet Volume 10.7H, Neutrophils (%) (Auto) 59, Lymphocytes (%) (Auto) 25, Monocytes (%) (Auto) 13H, Eosinophils (%) (Auto) 2, Basophils (%) (Auto) 0, Neutrophils # (Auto) 3.2, Lymphocytes # (Auto) 1.4, Monocytes # (Auto) 0.7, Eosinophils # (Auto) 0.1, Basophils # (Auto) 0.0, Sodium Level 141, Potassium Level 3.7, Chloride Level 105, Carbon Dioxide Level 22, Anion Gap 14, Blood Urea Nitrogen 10, Creatinine 0.80, Estimat Glomerular Filtration Rate > 60, BUN/Creatinine Ratio 13, Glucose Level 154H, Calcium Level 8.5, Corrected Calcium 8.3L, Total Bilirubin 0.5, Aspartate Amino Transf (AST/SGOT) 13, Alanine Aminotransferase (ALT/SGPT) 27, Alkaline Phosphatase 71, Total Protein 6.6, Albumin 4.2, Phosphorus Level 3.4, Magnesium Level 2.0 05/23/19 05:55: Troponin I < 0.028 ECG Impression ECG Initial ECG Impression: Atrial Fibrillation w/RVR A/P-Cardiology Assessment/Admission Diagnosis atrial fibrillation with rapid ventricular rate, Obstructive sleep apnea, Diabetes, Hyperlipidemia, Hypertension, CAD, history of PCI, Tobacco use. Plan atrial fibrillation with rapid ventricular rate, rate is controlled with Cardizem infusion. Patient also received amiodarone infusion. Marsha was star mt. CHADSVASC score of at least 3 for CAD, diabetes and hypertension. Therefore oral anticoagulation is superior to aspirin alone. I discussed at length with the patient about the pathophysiology of atrial fibrillation, stroke prevention, rate versus rhythm control. We will continue amiodarone infusion. If the patient does not self converted by tomorrow morning 7 a.m., we will schedule him for transesophageal echocardiogram assisted cardioversion in the morning at 830. Discussed at length with the patient and informed consent was taken for both a transesophageal echocardiogram and cardioversion. A 1 out of 500 risk of stroke was discussed with the patient. Obstructive sleep apnea, in-house sleep study. Diabetes, not well-controlled. Defer to the primary team. Hyperlipidemia, atorvastatin. Recommend checking a lipid panel. Hypertension,stable blood pressure. CAD, history of PCI, continue low-dose aspirin and atorvastatin. non-STEMI in generally 2017 requiring 3.0 x 15 mm Xience stent in the left circumflex artery. Done by Dr. Stiles. tobacco use, recommended to quit. LVH, aggressive management of hypertension. Thank you for your consultation. Please call me if you have any questions. Bello Zavaleta MD, FACP, FACC, FSCAI, FHRS, CCDS Interventional Cardiology Cardiac Electrophysiology Vascular Medicine and Endovascular Interventions Clinical Quality Measures DVT/VTE Risk/Contraindication: Risk Factor Score Per Nursin RFS Level Per Nursing on Admit: 2=Moderate Jocelin ZAVALETA MD May 23, 2019 09:10 POS
--- NOTE | 2019-05-23 09:36 | History & Physical-Hospitalist ---
History of Present Illness HPI/Chief Complaint CC: New onset AF w/ RVR HPI: This is a 43yoWM who knows me from two years ago when he underwent a stent due to an MD who presented to the [place] ER found to have new onset AF with RVR requiring Cardizem drip. Currently pt is on Amiodarone and Cardizem drip and Dr. Zavaleta has been consulted. Pt reports no pain but Dr. Beauchamp is working out something for a sleep study because he appears to have severe NO which is lik norris the source of the AF. Source: patient, RN/MD Exam Limitations: no limitations Date Seen 05/23/19 Time Seen by a Provider: 09:00 Attending Physician Jes Torrez DO PCP Ashley Al MD Referring Physician Date of Admission May 23, 2019 at 01:15 Home Medications & Allergies Home Medications Reviewed patient Home Medication Reconciliation performed by pharmacy medication reconciliations pyrotechnician and/or nursing. Patients Allergies have been reviewed. Allergies Allergies Coded Allergies No Known Drug Allergies (Unverified07/06/16) Past Nlvibpt-Ogmhwc-Njmyhp Hx Past Med/Social Hx: Reviewed Nursing Past Med/Soc Hx, Reviewed and Corrections made Patient Social History Alcohol Use: Occasionally Uses Alcohol Beverage of Choice: Beer Recreational Drug Use: No Smoking Status: Never a Smoker Type Used: Smokeless Tobacco 2nd Hand Smoke Exposure: No Recent Foreign Travel: No Contact w/other who traveled: No Recent Hopitalizations: No Recent Infectious Disease Expo: No Immunizations Up To Date Date of Influenza Vaccine: Mar 30, 2019 Seasonal Allergies Seasonal Allergies: No Past Medical History Surgeries: Cardiac, Coronary Stent Currently Using CPAP: No Currently Using BIPAP: No Cardiac: Coronary Artery Disease, High Cholesterol, Hypertension Reproductive: No Musculoskeletal: Fractures Endocrine: Diabetes, Non-Insulin dep Loss of Vision: Denies History of Blood Disorders: No Family History Not obtainable due to adoption No Pertinent Family Hx Review of Systems Constitutional: see HPI Cardiovascular: palpitations Physical Exam Physical Exam Vital Signs Vital Signs - First Documented 05/23/19 05/23/19 00:08 04:39 Temp 36.4 Pulse 135 Resp 20 B/P (MAP) 151/98 (115) Pulse Ox 97 O2 Delivery Room Air O2 Flow Rate 2.00 Capillary Refill : Less Than 3 Seconds Height, Weight, BMI Height: 6'2.00" Weight: 238lbs. 0.0oz. 107.012822nv; 33.45 BMI Method:Stated General Appearance: No Apparent Distress Eyes: Right Eye Normal Inspection, Right Eye PERRL HEENT: PERRL/EOMI, TMs Normal, Normal ENT Inspection, Pharynx Normal, Moist Mucous Membranes Neck: Full Range of Motion, Normal Inspection, Non Tender Respiratory: Chest Non Tender, Lungs Clear, Normal Breath Sounds, No Accessory Muscle Use, No Respiratory Distress Cardiovascular: Regular Rate, Rhythm, No Edema, No Gallop, No JVD, No Murmur, Normal Peripheral Pulses Gastrointestinal: Normal Bowel Sounds, No Organomegaly, No Pulsatile Mass, Non Tender, Soft Back: Normal Inspection, No CVA Tenderness, No Vertebral Tenderness Extremity: Normal Capillary Refill, Normal Inspection, Normal Range of Motion, Non Tender, No Calf Tenderness, No Pedal Edema Neurologic/Psychiatric: Alert, Oriented x3, No Motor/Sensory Deficits, Normal Mood/Affect Skin: Normal Color, Warm/Dry Lymphatic: No Adenopathy Results Results/Procedures Labs Laboratory Tests 05/23/19 00:10 05/23/19 03:25 Patient resulted labs reviewed. Assessment/Plan Admission Diagnosis Assessment: AF w/RVR new onset CAD s/p stent 2017 Suspect NO Plan: Monitor closely Needs CPAP Admission Status: Inpatient Order (span 2 midnights) Reason for Inpatient Admission: AF w/RVR Diagnosis/Problems Diagnosis/Problems (1) Atrial fibrillation with rapid ventricular response Status: Acute (2) CAD (coronary artery disease) (3) Stented coronary artery (4) Chest pain Status: Acute Clinical Quality Measures DVT/VTE Risk/Contraindication: Risk Factor Score Per Nursin RFS Level Per Nursing on Admit: 2=Moderate JES TORREZ DO May 23, 2019 09:36 POS
[2019-05-23] MEDS ORDERED: MULT1TAB69 PO (09:48)
[2019-05-23] MEDS ORDERED: LISI40TA PO (09:48)
[2019-05-23] MEDS ORDERED: AMLO5TAB9 PO (09:48)
[2019-05-23] MEDS ORDERED: METO-395 PO (09:48)
--- NOTE | 2019-05-23 09:52 | NUR ---
SPOKE WITH THE PATIENT ABOUT HIS MEDICATIONS. WE WENT OVER THE EXT MED HX AND HE VERIFIED HOW HE TAKES THEM. HE STATES IN ADDITION HE DOES TAKE LIPITOR, HE STATES HE HAS NOT FILLED IT RECENTLY BECAUSE HE HAD A SUPPLY BUILT UP ON HAND AT HOME. I CALLED [facility] IN [place] TO VERIFY WHEN IT WAS LAST FILLED AND THEY STATE IT WAS 12-13-18 LIPITOR 10MG #90 HE TAKES ASPIRIN 81MG DAILY AND A MTV DAILY OTC.
--- NOTE | 2019-05-23 22:06 | NUR ---
PORTABLE HOME SLEEP APNEA TEST SET UP PER ORDER DR. HURST FOR WITNESSED APNEA, NEW ONSET ATRIAL FIBRILLATION. PROCEDURE EXPLAINED TO PATIENT, WHO VERBALIZED UNDERSTANDING OF TESTING. [facility] HSAT UNIT APPLIED WITH NO ISSUES. PATIENT ON ROOM AIR FOR TESTING. RN NOTIFIED OF TESTING WITH EXPLANATION OF UNIT AND CONTACT INFO FOR THIS THERAPIST PROVIDED FOR ANY ISSUES DURING TESTING.
[2019-05-23 22:46] LABS: AMPHETAMINE SCREEN, URINE NEGATIVE (NEGATIVE); BARBITURATE SCREEN URINE NEGATIVE (NEGATIVE); BENZODIAZEPINES SCREEN URINE NEGATIVE (NEGATIVE); CANNABINOID SCREEN, URINE NEGATIVE (NEGATIVE); COCAINE SCREEN URINE NEGATIVE (NEGATIVE); METHADONE STAT NEGATIVE (NEGATIVE); METHAMPHETAMINE SCREEN URINE S NEGATIVE (NEGATIVE); OPIATE SCREEN URINE NEGATIVE (NEGATIVE); OXYCODONE STAT NEGATIVE (NEGATIVE); PROPOXYPHENE STAT NEGATIVE (NEGATIVE); TRICYCLIC ANTIDEPRESSANTS SCRE NEGATIVE (NEGATIVE)
[2019-05-23 22:47] LABS: BILIRUBIN,URINE NEGATIVE (NEGATIVE); CLARITY,URINE CLEAR; COLOR,URINE DARK YELLOW; GLUCOSE, URINE (UA) 1+ (NEGATIVE); KETONES,URINE NEGATIVE (NEGATIVE); LEUKOCYTE ESTERASE ,URINE NEGATIVE (NEGATIVE); NITRITE,URINE NEGATIVE (NEGATIVE); PROTEIN,URINE NEGATIVE (NEGATIVE)
[2019-05-23 22:49] LABS: BACTERIA,URINE TRACE /HPF; SQUAMOUS EPITHELIAL CELL,UR RARE /HPF; WBC,URINE 0-2 /HPF
[2019-05-24] VITALS (18 sets, daily range): BP systolic 103–139; BP diastolic 70–100
[2019-05-24 03:39] LABS: BASOPHILS % (AUTO) 0 % (0-10); EOSINOPHILS # (AUTO) 0.1 10^3/uL (0.0-0.3); EOSINOPHILS % (AUTO) 2 % (0-10); HEMATOCRIT 43 % (40-54); LYMPHOCYTES % (AUTO) 27 % (12-44); MEAN CORPUSCULAR HEMOGLOBIN 30 PG (25-34); MEAN CORPUSCULAR HGB CONC 35 G/DL (32-36); MEAN CORPUSCULAR VOLUME 86 FL (80-99); MEAN PLATELET VOLUME 10.7 FL (7.4-10.4); MONOCYTES # (AUTO) 0.7 X 10^3 (0.0-1.0); MONOCYTES % (AUTO) 10 % (0-12); NEUTROPHILS # (AUTO) 4.4 X 10^3 (1.8-7.8); NEUTROPHILS % (AUTO) 61 % (42-75); PLATELET COUNT 211 10^3/uL (130-400); RED CELL DISTRIBUTION WIDTH 13.2 % (10.0-14.5); WHITE BLOOD COUNT 7.3 10^3/uL (4.3-11.0)
[2019-05-24 04:03] LABS: BUN/CREATININE RATIO 12; CALCIUM 8.6 MG/DL (8.5-10.1); CARBON DIOXIDE 24 MMOL/L (21-32); CHLORIDE 106 MMOL/L (98-107); CREATININE SERUM 1.04 MG/DL (0.60-1.30); GFR ESTIMATED > 60; GLUCOSE 138 MG/DL (70-105); PHOSPHORUS 3.2 MG/DL (2.3-4.7); POTASSIUM 4.1 MMOL/L (3.6-5.0); SODIUM 141 MMOL/L (135-145)
[2019-05-24] MEDS: POTASSIUM CL 10MEQ/50ML IVPB 50 ML IV SCH (04:09)
[2019-05-24] MEDS: KCL 20 MEQ TAB (K-DUR) PO SCH (04:09)
[2019-05-24] MEDS: MAGNESIUM 1 GM/100 ML IVPB 100 ML IV SCH (04:09)
[2019-05-24] MEDS: inSUlin ASPART (NovoLOG) 1 UNIT/0.01 ML (CHARGE PER UNIT) SC SCH ×3 (04:10→17:08)
[2019-05-24] MEDS: DILTIAZEM 125 MG/NS 100 ML IV SCH ×2 (06:28)
--- NOTE | 2019-05-24 07:06 | Pulmonary Progress Note ---
Sepsis Event Evaluation Height, Weight, BMI Height: 6'2.00" Weight: 238lbs. 0.0oz. 107.027076vw; 33.45 BMI Method:Stated Exam Exam Vital Signs Date Time Temp Pulse Resp B/P (MAP) Pulse Ox O2 Delivery O2 Flow Rate FiO2 05/24/19 06:28 36.80407 75 14 103/79 86 Room Air 4.00 05/24/19 06:00 75 14 103/79 (87) 86 Room Air 05/24/19 05:00 76 24 110/70 (83) 66 Room Air 05/24/19 04:00 72 25 125/75 (92) 86 Room Air 05/24/19 04:00 92 Room Air 05/24/19 03:15 69 16 104/75 (85) 93 Room Air 05/24/19 03:00 77 23 124/100 (108) 95 Room Air 05/24/19 02:00 70 12 123/72 (89) 84 Room Air 05/24/19 01:00 69 05/24/19 01:00 69 15 125/79 (94) 66 Room Air 05/24/19 00:00 94 Room Air 05/24/19 00:00 70 10 108/72 (84) 93 Room Air 05/23/19 23:00 66 12 108/77 (87) 92 Room Air 05/23/19 22:00 67 18 100/74 (83) 94 Room Air 05/23/19 21:00 54 15 105/75 (85) 95 Room Air 05/23/19 20:00 55 15 108/66 (80) 94 Room Air 05/23/19 20:00 97 Room Air 05/23/19 19:30 36.6 05/23/19 19:00 54 05/23/19 19:00 54 18 100/78 (85) 94 Room Air 05/23/19 18:00 64 21 108/70 (83) 92 Room Air 05/23/19 17:00 63 37 113/79 (90) Room Air 05/23/19 16:00 96 Room Air 05/23/19 16:00 58 9 87/71 (76) 98 Room Air 05/23/19 15:23 36.3 05/23/19 15:00 66 17 105/68 (80) 94 OxyMask 4.00 05/23/19 14:00 65 14 100/62 (75) 91 OxyMask 4.00 05/23/19 13:42 67 05/23/19 13:00 68 05/23/19 13:00 56 10 107/62 (77) 99 OxyMask 4.00 05/23/19 12:26 95 Room Air 05/23/19 12:00 82 35 95/69 (78) 94 Room Air 05/23/19 11:19 36.6 05/23/19 11:00 67 19 113/77 (89) 93 Room Air 05/23/19 10:00 74 18 119/73 (88) 95 Room Air 05/23/19 09:00 86 10 121/82 (95) 92 Room Air 05/23/19 08:00 95 Room Air 05/23/19 08:00 102 13 115/79 (91) 98 Room Air I & O 05/24/19 07:00 Intake Total 2789 ml Output Total 150 ml Balance 2639 ml Height & Weight Height: 6'2.00" Weight: 238lbs. 0.0oz. 107.270968xu; 33.45 BMI Method:Stated General Appearance: No Apparent Distress HEENT: PERRL/EOMI, TMs Normal, Normal ENT Inspection, Pharynx Normal, Moist Mucous Membranes Neck: Full Range of Motion, Normal Inspection, Non Tender Respiratory: Chest Non Tender, Lungs Clear, Normal Breath Sounds, No Accessory Muscle Use, No Respiratory Distress Cardiovascular: Regular Rate, Rhythm, No Edema, No Gallop, No JVD, No Murmur, Normal Peripheral Pulses Capillary Refill: Less Than 3 Seconds Extremity: Normal Capillary Refill, Normal Inspection, Normal Range of Motion, Non Tender, No Calf Tenderness, No Pedal Edema Neurologic/Psychiatric: Alert, Oriented x3, No Motor/Sensory Deficits, Normal Mood/Affect Skin: Normal Color, Warm/Dry Lymphatic: No Adenopathy Results Lab Laboratory Tests 05/23/19 00:10 05/23/19 03:25 05/24/19 02:55 Assessment/Plan Assessment/Plan Afib RVR - Currently on Cardizem, and amio gtt -Cardiology consulted Obesity with witnessed apnea, snoring, nocturnal hypoxia -- Pt needs PSG -Rn stats pt desaturates to 77% during sleep. He is currently requiring 2 liters NC -PT had hospital PSG last night. results pending. Will try to get pt a home CPAP prior to discharge. JORGE HURST DO May 24, 2019 07:06 POS
[2019-05-24] MEDS ORDERED: NS IV 500 ML 500 ML ONE (07:25)
[2019-05-24] MEDS ORDERED: MIDAZOLAM 5 MG/5 ML (VERSED) VIAL ONE ×2 (07:25→07:38)
[2019-05-24] MEDS ORDERED: proPOfol 200 MG/20 ML (DIPRIVAN) VIAL IV ONE ×2 (07:25→08:12)
[2019-05-24] MEDS ORDERED: NS IV 500 ML 500 ML IV ONE (07:45)
[2019-05-24] MEDS ORDERED: LIDOCAINE 2% VISCOUS 15 ML UDC PO NR (07:45)
[2019-05-24] MEDS ORDERED: MIDAZOLAM 2 MG/2 ML (VERSED) VIAL ONE (08:12)
--- NOTE | 2019-05-24 08:43 | NUR ---
, [facility] and two anesthesiologist at bedside. Patient set up for CHASIDY and cardioversion. Patient has been informed of procedure by physician and informed consent is on the chart. Time out 0843. sedation initiated by anaesthesia. bubbles given by this RN under the direction of . 1 shock delivered at 200 lyndon per at 0856. Patient converted to normal sinus rhythm per . EKG obtained. This nurse stayed at patients bedside until patient alert and following commands. Bite block taken out at 0913. Patient alert and oriented. VSS. Patients girlfriend is now at bedside. Patient sitting up, patient drinking water without difficulty. Will continue to monitor.
--- NOTE | 2019-05-24 09:02 | Cardiology Progress Note ---
Cardiology SOAP Progress Note Subjective: Continues to be in atrial fibrillation. Objective: I&O/Vital Signs 05/23/19 05/24/19 05/24/19 05/24/19 23:00 00:00 00:00 01:00 Pulse 66 70 69 Resp 12 10 15 B/P (MAP) 108/77 (87) 108/72 (84) 125/79 (94) Pulse Ox 92 93 94 66 O2 Delivery Room Air Room Air Room Air Room Air 05/24/19 05/24/19 05/24/19 05/24/19 01:00 02:00 03:00 03:15 Pulse 69 70 77 69 Resp 12 23 16 B/P (MAP) 123/72 (89) 124/100 (108) 104/75 (85) Pulse Ox 84 95 93 O2 Delivery Room Air Room Air Room Air 05/24/19 05/24/19 05/24/19 05/24/19 04:00 04:00 05:00 06:00 Pulse 72 76 75 Resp 25 24 14 B/P (MAP) 125/75 (92) 110/70 (83) 103/79 (87) Pulse Ox 92 86 66 86 O2 Delivery Room Air Room Air Room Air Room Air 05/24/19 05/24/19 05/24/19 05/24/19 06:28 07:00 07:00 08:00 Temp 36.50957 Pulse 75 99 75 81 Resp 14 15 25 B/P (MAP) 103/79 109/80 (90) 139/87 (104) Pulse Ox 86 67 91 O2 Delivery Room Air Room Air Room Air O2 Flow Rate 4.00 05/24/19 05/24/19 05/24/19 05/24/19 08:00 09:00 09:13 10:00 Pulse 85 86 86 Resp 12 11 B/P (MAP) 104/88 (93) 108/83 (91) Pulse Ox 92 98 91 O2 Delivery Room Air Room Air Room Air 05/24/19 00:00 Intake Total 2189 ml Output Total 150 ml Balance 2039 ml Weight (Pounds): 238 Weight (Ounces): 0.0 Weight (Calculated Kilograms): 107.844434 Constitutional: appears stated age, AAO x 3; No apparent distress; well- developed, well-nourished Respiratory: chest is bilaterally symmetric, lungs clear to auscultation Cardiovascular: irregularly irregular, S1 and S2 Gastrointestional: soft, audible bowel sounds; No spleenomegaly Extremities: normal range of motion, non-tender, normal inspection; No clubbing, No cyanosis; no lower extremity edema bilateral; No significant edema Neurologic/Psychiatric: no motor/sensory deficits, alert, normal mood/affect, oriented x 3, power is 5/5 both on sides Skin: normal color, warm/dry; No rash, No ulcerations Results/Procedures: Labs Laboratory Tests 05/23/19 11:24: Glucometer 272H 05/23/19 12:27: Troponin I < 0.028 05/23/19 16:38: Glucometer 129H 05/23/19 20:25: Glucometer 151H 05/23/19 21:25: Urine Color DARK YELLOW, Urine Clarity CLEAR, Urine pH 6.0, Urine Specific [place] >=1.030, Urine Protein NEGATIVE, Urine Glucose (UA) 1+H, Urine Ketones NEGATIVE, Urine Nitrite NEGATIVE, Urine Bilirubin NEGATIVE, Urine Urobilinogen 0.2, Urine Leukocyte Esterase NEGATIVE, Urine RBC (Auto) NEGATIVE, Urine RBC NONE, Urine WBC 0-2, Urine Squamous Epithelial Cells RARE, Urine Crystals NONE, Urine Bacteria TRACE, Urine Casts NONE, Urine Mucus MODERATEH, Urine Culture Indicated NO, Urine Opiates Screen NEGATIVE, Urine Oxycodone Screen NEGATIVE, Urine Methadone Screen NEGATIVE, Urine Propoxyphene Screen NEGATIVE, Urine Bettie turates Screen NEGATIVE, Ur Tricyclic Antidepressants Screen NEGATIVE, Urine Phencyclidine Screen NEGATIVE, Urine Amphetamines Screen NEGATIVE, Urine Methamphetamines Screen NEGATIVE, Urine Benzodiazepines Screen NEGATIVE, Urine Cocaine Screen NEGATIVE, Urine Cannabinoids Screen NEGATIVE 05/24/19 02:55: White Blood Count 7.3, Red Blood Count 5.06, Hemoglobin 15.0, Hematocrit 43, Mean Corpuscular Volume 86, Mean Corpuscular Hemoglobin 30, Mean Corpuscular Hemoglobin Concent 35, Red Cell Distribution Width 13.2, Platelet Count 211, Mean Platelet Volume 10.7H, Neutrophils (%) (Auto) 61, Lymphocytes (%) (Auto) 27, Monocytes (%) (Auto) 10, Eosinophils (%) (Auto) 2, Basophils (%) (Auto) 0, Neutrophils # (Auto) 4.4, Lymphocytes # (Auto) 2.0, Monocytes # (Auto) 0.7, Eosinophils # (Auto) 0.1, Basophils # (Auto) 0.0, Sodium Level 141, Potassium Level 4.1, Chloride Level 106, Carbon Dioxide Level 24, Anion Gap 11, Blood Urea Nitrogen 12, Creatinine 1.04, Estimat Glomerular Filtration Rate > 60, BUN/Creatinine Ratio 12, Glucose Level 138H, Calcium Level 8.6, Phosphorus Level 3.2, Magnesium Level 2.0 A/P: Assessment/Dx: atrial fibrillation with rapid ventricular rate, Obstructive sleep apnea, Diabetes, Hyperlipidemia, Hypertension, CAD, history of PCI, Tobacco use. Plan: atrial fibrillation with rapid ventricular rate, rate is controlled with Cardizem infusion. Patient also received amiodarone infusion. Eliquis was started. CHADSVASC score of at least 3 for CAD, diabetes and hypertension. Therefore oral anticoagulation is superior to aspirin alone. I discussed at length with the patient about the pathophysiology of atrial fibrillation, stroke prevention, rate versus rhythm control. We will continue amiodarone infusion. If the patient does not self converted by tomorrow morning 7 a.m., we will schedule him for transesophageal echocardiogram assisted cardioversion in the morning at 830. Discussed at length with the patient and informed consent was taken for both a transesophageal echocardiogram and cardioversion. A 1 out of 500 risk of stroke was discussed with the patient. Transesophageal echocardiogram done on 05/24/2019 showed normal LV function with no thrombus in the left atrium or left atrial appendage. Successful electrical cardioversion done with 200 J. Patient will be started on multaq 400 mg twice a day. Hopefully can be discharged later today. EP follow-up with me in 4 weeks. Continue regular follow-up with Dr. Stiles. Obstructive sleep apnea, in-house sleep study. Diabetes, not well-controlled. Defer to the primary team. Hyperlipidemia, atorvastatin. Recommend checking a lipid panel. Hypertension,stable blood pressure. CAD, history of PCI, continue low-dose aspirin and atorvastatin. non-STEMI in generally 2017 requiring 3.0 x 15 mm Xience stent in the left circumflex artery. Done by Dr. Stiles. tobacco use, recommended to quit. LVH, aggressive management of hypertension. Thank you for your consultation. Please call me if you have any questions. Bello Zavaleta MD, FACP, FACC, FSCAI, FHRS, CCDS Interventional Cardiology Cardiac Electrophysiology Vascular Medicine and Endovascular Interventions Jocelin ZAVALETA MD May 24, 2019 09:02 POS
--- NOTE | 2019-05-24 09:03 | Cardioversion ---
Cardioversion PROCEDURE PHYSICIAN: Bello Zavaleta MD DATE OF PROCEDURE: 05/24/19 DIRECT EXTERNAL ELECTRICAL CARDIOVERSION: Indications: Atrial Fibrillation with rapid ventricular rate Preoperative diagnoses: Atrial Fibrillation with rapid ventricular rate Postoperative diagnosis: Sinus rhythm, Successful Electrical Cardioversion History: 43 year old male with DM, HTN, CAD, PCI with AF with RVR. Anesthesia: By Anesthesia services Complications: None Specimen: None Contrast: 0 Flouroscopy: none Procedure Details: The patient was brought the cath laboratory technician after informed consent was taken, all the risks and complications were explained including the risk of stroke. Electrical cardioversion was carried out with anesthesia support with propofol. 200 joules of synchronized shock was delivered through external patches which promptly restored sinus rhythm. The patient tolerated the procedure well. Conclusions: 1.Successful Cardioversion. 2.Continue oral anticoagulation and rate controlling agent. We will start multaq 400mg bid. 3.Follow up in office in 7-14 days. Bello Zavaleta MD, RS, CCDS Cardiac Electrophysiology Jocelin ZAVALETA MD May 24, 2019 09:03 POS
[2019-05-24] MEDS: meTOprolol SUCCINATE 100 MG (TOPROL XL) TAB PO SCH (09:36)
[2019-05-24] MEDS: lisINopril 20 MG (PRINIVIL) TABLET PO SCH (09:36)
[2019-05-24] MEDS: APIXABAN 5 MG (ELIQUIS) TABLET PO SCH (09:36)
--- NOTE | 2019-05-24 09:36 | Diagnostic Imaging Report ---
INDICATION: Atrial fibrillation with rapid ventricular response. COMPARISON: 05/23/2018 FINDINGS: The heart size within normal limits. The lungs clear. No failure, effusion or pneumothorax. IMPRESSION: Negative. Dictated by: Dictated on workstation # [id number]
[2019-05-24] MEDS: ASPIRIN 81 MG CHEW (CHILDREN'S ASA) PO SCH (09:37)
--- NOTE | 2019-05-24 09:42 | Discharge Summary ---
Discharge Summary Hospital Course Was the Problem List Reviewed?: Yes Problems/Dx: (1) Atrial fibrillation with rapid ventricular response Status: Acute (2) CAD (coronary artery disease) (3) Stented coronary artery (4) Chest pain Status: Acute (5) Obstructive sleep apnea Hospital Course Date of Admission: May 23, 2019 at 01:15 Admission Diagnosis : Family Physician/Provider: Ashley Al MD Date of Discharge: 05/24/19 Discharge Diagnosis: New-onset atrial fibrillation with rapid ventricular response requiring cardioversion and antiarrhythmic medication, new onset sleep apnea, CAD previous stent 2 years ago, diabetes mellitus [id number] 7.1 Hospital Course: Patient had a standard hospital course for new onset atrial fibrillation with rapid ventricular response requiring Cardizem drip amiodarone drip in ICU admission cardiology was consulted placed on anticoagulation patient underwent cardioversion with success was deemed stable for discharge. Labs and Pending Lab Test: Laboratory Tests 05/23/19 11:24: Glucometer 272H 05/23/19 12:27: Troponin I < 0.028 05/23/19 16:38: Glucometer 129H 05/23/19 20:25: Glucometer 151H 05/23/19 21:25: Urine Color DARK YELLOW, Urine Clarity CLEAR, Urine pH 6.0, Urine Specific [place] >=1.030, Urine Protein NEGATIVE, Urine Glucose (UA) 1+H, Urine Ketones NEGATIVE, Urine Nitrite NEGATIVE, Urine Bilirubin NEGATIVE, Urine Urobilinogen 0.2, Urine Leukocyte Esterase NEGATIVE, Urine RBC (Auto) NEGATIVE, Urine RBC NONE, Urine WBC 0-2, Urine Squamous Epithelial Cells RARE, Urine Crystals NONE, Urine Bacteria TRACE, Urine Casts NONE, Urine Mucus MODERATEH, Urine Culture Indicated NO, Urine Opiates Screen NEGATIVE, Urine Oxycodone Screen NEGATIVE, Urine Methadone Screen NEGATIVE, Urine Propoxyphene Screen NEGATIVE, Urine Barbiturates Screen NEGATIVE, Ur Tricyclic Antidepressants Screen NEGATIVE, Urine Phencyclidine Screen NEGATIVE, Urine Amphetamines Screen NEGATIVE, Urine Methamphetamines Screen NEGATIVE, Urine Benzodiazepines Screen NEGATIVE, Urine Cocaine Screen NEGATIVE, Urine Cannabinoids Screen NEGATIVE 05/24/19 02:55: White Blood Count 7.3, Red Blood Count 5.06, Hemoglobin 15.0, Hematocrit 43, Mean Corpuscular Volume 86, Mean Corpuscular Hemoglobin 30, Mean Corpuscular Hemoglobin Concent 35, Red Cell Distribution Width 13.2, Platelet Count 211, Mean Platelet Volume 10.7H, Neutrophils (%) (Auto) 61, Lymphocytes (%) (Auto) 27, Monocytes (%) (Auto) 10, Eosinophils (%) (Auto) 2, Basophils (%) (Auto) 0, Neutrophils # (Auto) 4.4, Lymphocytes # (Auto) 2.0, Monocytes # (Auto) 0.7, Eosinophils # (Auto) 0.1, Basophils # (Auto) 0.0, Sodium Level 141, Potassium Level 4.1, Chloride Level 106, Carbon Dioxide Level 24, Anion Gap 11, Blood Urea Nitrogen 12, Creatinine 1.04, Estimat Glomerular Filtration Rate > 60, BUN/Creatinine Ratio 12, Glucose Level 138H, Calcium Level 8.6, Phosphorus Level 3.2, Magnesium Level 2.0 Home Meds Active Reported Multivitamins (Multivitamin) 1 Each Tablet 1 Tab PO DAILY Amlodipine Besylate 5 Mg Tablet 5 Mg PO HS Metoprolol Succinate 100 Mg Tab.er.24h 100 Mg PO DAILY Lisinopril 40 Mg Tablet 40 Mg PO HS Aspirin EC (Aspirin) 81 Mg Tablet.dr 81 Mg PO DAILY Atorvastatin Calcium 10 Mg Tablet 10 Mg PO HS LAST FILLED #90 --18 Glyburide 1.25 Mg Tablet 1.25 Mg PO BID Assessment/Pt Instructions [facility] in one week Discharge Planning: <30 minutes discharge planning Discharge Instructions Discharge Diet: ADA Diet, Cardiac Diet Pneumonia Vaccine Order Indica: Yes Discharge Physical Examination Vital Signs Vital Signs Date Time Temp Pulse Resp B/P (MAP) Pulse Ox O2 Delivery O2 Flow Rate FiO2 05/24/19 09:13 86 05/24/19 09:00 12 104/88 (93) 98 Room Air 05/24/19 06:28 36.68385 4.00 General Appearance: No Apparent Distress, WD/WN Allergies: Coded Allergies: No Known Drug Allergies (Unverified , 07/06/16) Discharge Summary Date of Admission May 23, 2019 at 01:15 Date of Discharge Admission Diagnosis Assessment: AF w/RVR new onset CAD s/p stent 2017 Suspect NO Plan: Monitor closely Needs CPAP Discharge Diagnosis (1) Atrial fibrillation with rapid ventricular response Status: Acute (2) CAD (coronary artery disease) (3) Stented coronary artery (4) Chest pain Status: Acute Clinical Quality Measures DVT/VTE Risk/Contraindication: Risk Factor Score Per Nursin RFS Level Per Nursing on Admit: 2=Moderate KENDY TORREZ DO May 24, 2019 09:42 POS
--- NOTE | 2019-05-24 11:29 | Anesthesia-General Post-Op ---
MAC Patient Condition Mental Status/LOC: Same as Preop Cardiovascular: Satisfactory Nausea/Vomiting: Absent Respiratory: Satisfactory Pain: Controlled Complications: Absent Post Op Complications Complications None Follow Up Care/Instructions Patient Instructions None needed. Anesthesiology Discharge Order Discharge Order Patient was seen after the procedure and he was doing well, no complaints, stable vital signs, no apparent adverse anesthesia problems. TRENT DC DO May 24, 2019 11:29 POS
--- NOTE | 2019-05-24 16:00 | NUR ---
This nurse spoke with , he agreed with discharge plans after DME came to set up CPAP for home. agress with discharge plan as well. Telephone orders received from to resume all of patients home blood pressure medication and to add eliquis 5mg BID.
[2019-05-24] MEDS ORDERED: APIX5TAB PO (16:10)
--- NOTE | 2019-05-24 16:59 | NUR ---
Eliquis 5mg PO BID #60 (1 month) called in to [facility] in [place] per , patient educated on Eliquis. Coupon for eliquis given to patient. CPAP delivered by DME via danielle, patient educated by DME RT on CPAP. both IV's removed by this nurse, IV catheter tip intact, gauze and tape applied to site. VSS. Entire discharge packet discussed with patient. Patient stated to me that RT covered all of his questions about the CPAP and that he felt comfortable with it. after going over discharge packet patient stated that he did not have any further questions that all of his questions have been answered. Follow up appointments scheduled for patient. Patient given a follow up appointment card, patient advised of appointments that have been scheduled. Patients parents are at bedside, they are his ride home.
== END 2019-05-24 16:57 | disposition home or self-care (01) | DRG 310 ==
LOC: EDUNIT# 00:04 → ER FS 00:07 → ICU 01:15
PROVIDERS: ADMIT Internal Medicine; ATTEND Internal Medicine
PROC: 5A2204Z Restoration of Cardiac Rhythm, Single (ICD-10-PCS; principal; 2019-05-24)
DX: I48.91 Unspecified atrial fibrillation (principal); I25.10 Atherosclerotic heart disease of native coronary artery without angina pectoris; I25.2 Old myocardial infarction; F17.220 Nicotine dependence, chewing tobacco, uncomplicated; I10 Essential (primary) hypertension; E11.65 Type 2 diabetes mellitus with hyperglycemia; E78.5 Hyperlipidemia, unspecified; E66.9 Obesity, unspecified; G47.33 Obstructive sleep apnea (adult) (pediatric); R06.83 Snoring; Z95.5 Presence of coronary angioplasty implant and graft; Z79.82 Long term (current) use of aspirin
CPT/HCPCS: 36415; 71045; 80048; 80053; 80306; 81000; 82962; 83036; 83735; 84100; 84484; 85025; 85610; 85730; 87081; 93005; 93306; 93312; 93320; 93325; 96365

== ENCOUNTER 2019-08-06 12:13 | Emergency (ER) | payer OTHER ==
[~2019-08-06] VITALS: Ht 185.5 cm; Wt 118.1 kg
[~2019-08-06 12:13] MED LIST changes: +AMLO5TAB9 PO; +APIX5TAB PO; +LISI40TA PO; +MTP100TCR PO; +MULT1TAB69 PO; -TRAM50TA2 PO; +TRM50T PO
--- NOTE | 2019-08-06 12:36 | ED Head Injury ---
General Chief Complaint: Head/Cervical Problems Stated Complaint: W/C FALL - HIT HEAD ON FLOOR History of Present Illness Date Seen by Provider: Aug 06, 2019 Time Seen by Provider: 12:31 Initial Comments Patient is here following a fall at work works at [employer] fell forward about 4 feet onto his right forehead also injured his left knee but was not knocked unconscious did not see stars but did have some dazed feeling following the fall no dizziness noted no nausea vomiting no change in vision he is on Eliquis for atrial fibrillation Occurred: just prior to arrival Severity: mild Location: frontal Method of Injury: fell Loss of Consciousness: dazed Associated Systoms: Headaches; No Nausea/Vomiting, No Seizure, No Weakness Allergies and Home Medications Allergies Coded Allergies: No Known Drug Allergies (Unverified , 07/06/16) Home Medications Amlodipine Besylate 5 Mg Tablet, 5 MG PO HS, (Reported) Apixaban 5 Mg Tablet, 5 MG PO BID Prescribed by: FRANSISCO EISENBERG on 05/24/19 1610 Aspirin 81 Mg Tablet.dr, 81 MG PO DAILY, (Reported) Atorvastatin Calcium 10 Mg Tablet, 10 MG PO HS, (Reported) LAST FILLED #90 06-10-18 Glyburide 1.25 Mg Tablet, 1.25 MG PO BID, (Reported) Lisinopril 40 Mg Tablet, 40 MG PO HS, (Reported) Metoprolol Succinate 100 Mg Tab.er.24h, 100 MG PO DAILY, (Reported) Multivitamin 1 Each Tablet, 1 TAB PO DAILY, (Reported) Patient Home Medication List Home Medication List Reviewed: Yes Review of Systems Review of Systems Constitutional: No chills, No fever Eyes: Denies Blurred Vision, Denies Vision Changes Ears, Nose, Mouth, Throat: denies ear pain, denies throat pain Respiratory: No cough, No short of breath, No wheezing Cardiovascular: No chest pain, No palpitations Gastrointestinal: No abdominal pain, No nausea, No vomiting Genitourinary: No dysuria, No frequency, No hematuria Musculoskeletal: joint pain (small contusion to the left knee), joint swelling Skin: No lesions, No rash Psychiatric/Neurological: Headache; Denies Numbness, Denies Tingling, Denies Weakness Past Faxhpmr-Fydltp-Pmdoic Hx Past Med/Social Hx: Reviewed Nursing Past Med/Soc Hx Patient Social History Alcohol Use: Occasionally Uses Number of Drinks Today: AA Alcohol Beverage of Choice: Beer Recreational Drug Use: No Type Used: Smokeless Tobacco Former Smoker, Quit: Jun 29, 1996 2nd Hand Smoke Exposure: No Recent Foreign Travel: No Recent Hopitalizations: No Physical Abuse: No Sexual Abuse: No Mistreated: No Fear: No Immunizations Up To Date Date of Influenza Vaccine: Mar 30, 2019 Seasonal Allergies Seasonal Allergies: No Past Medical History Surgeries: Yes (CARDIAC CATH--STENT X 1) Cardiac, Coronary Stent Respiratory: No Currently Using CPAP: No Currently Using BIPAP: No Cardiac: Yes (CARDIAC STENT X1) Coronary Artery Disease, High Cholesterol, Hypertension Neurological: No Reproductive Disorders: No Genitourinary: No Gastrointestinal: No Musculoskeletal: Yes Fractures Endocrine: Yes Diabetes, Non-Insulin dep HEENT: No Loss of Vision: Denies Cancer: No Psychosocial: No Integumentary: No Blood Disorders: No Family Medical History Not obtainable due to adoption No Pertinent Family Hx Physical Exam Vital Signs Vital Signs - First Documented 08/06/19 12:22 Temp 36.8 Pulse 97 Resp 18 B/P (MAP) 153/96 (115) Pulse Ox 94 O2 Delivery Room Air Capillary Refill : Height, Weight, BMI Height: 6'2.00" Weight: 238lbs. 0.0oz. 107.082125oi; 33.45 BMI Method:Stated General Appearance: WD/WN, no apparent distress HEENT: PERRL/EOMI, TMs normal, pharynx normal, other (no carter on the forehead and minimal swelling if any) Neck: non-tender, full range of motion Cardiovascular: regular rate, rhythm, no murmur Respiratory: normal breath sounds, no respiratory distress Gastrointestinal: normal bowel sounds, soft, no organomegaly Back: normal inspection Extremities: normal range of motion, other (small contusion in her left knee) Psychiatric: alert, oriented x 3 Coordination/Gait: normal gait Motor/Sensory: no motor deficit, no sensory deficit Reflexes: 2+ Knee (R), 2+ Knee (L) Skin: normal color, warm/dry Progress/Results/Core Measures Results/Orders My Orders Orders - GILLIAN FONSECA JR, MD Ct Head Wo (08/06/19 12:30) Vital Signs/I&O 08/06/19 12:22 Temp 36.8 Pulse 97 Resp 18 B/P (MAP) 153/96 (115) Pulse Ox 94 O2 Delivery Room Air Departure Impression Primary Impression: Contusion of head Qualified Codes: S00.93XA - Contusion of unspecified part of head, initial encounter Disposition: HOME, SELF-CARE Condition: Stable Departure-Patient Inst. Referrals: NADEGE SANTA MD (PCP/Family) Primary Care Physician Patient Instructions: Head Injury Observation (DC) Work/School Note: Work Release Form Date Seen in the Emergency Department: Aug 06, 2019 Return to Work: Aug 08, 2019 Restrictions: No Restrictions GILLIAN FONSECA JR, MD Aug 06, 2019 12:36
--- NOTE | 2019-08-06 13:00 | Diagnostic Imaging Report ---
EXAMINATION: CT brain without contrast 08/06/2019. TECHNIQUE: Multiple contiguous axial images were obtained through the brain without the use of intravenous contrast. Auto Exposure Controls were utilized during the CT exam to meet ALARA standards for radiation dose reduction. INDICATION: Fell, hit head on concrete floor. COMPARISON: None. FINDINGS: No hemorrhage or infarct is seen. No mass, mass effect or midline shift is noted. There is no hydrocephalus. The calvarium is intact. No acute sinus disease is appreciated. Hyperdensity in the midline anteriorly near the ethmoid air cells nonspecific, possibly an osteoma. This could be followed as clinically warranted to assure stability. However it does appear to have been present back on a CT maxillofacial from 09/14/2017 with a significant change not appreciated. IMPRESSION: 1. Chronic findings as above. No acute intracranial process. Dictated by: Dictated on workstation # [id number]
[2019-08-06 13:11] VITALS: BP 144/93
== END 2019-08-06 13:10 | disposition home or self-care (01) ==
LOC: EDUNIT# 12:13 → ER FS 12:14
DX: S00.83XA Contusion of other part of head, initial encounter (principal); S80.02XA Contusion of left knee, initial encounter; I10 Essential (primary) hypertension; I48.91 Unspecified atrial fibrillation; E78.00 Pure hypercholesterolemia, unspecified; E11.9 Type 2 diabetes mellitus without complications; I25.10 Atherosclerotic heart disease of native coronary artery without angina pectoris; Z95.5 Presence of coronary angioplasty implant and graft; Z79.01 Long term (current) use of anticoagulants; Z79.82 Long term (current) use of aspirin; Z87.891 Personal history of nicotine dependence; Z79.84 Long term (current) use of oral hypoglycemic drugs; W17.89XA Other fall from one level to another, initial encounter; Y92.59 Other trade areas as the place of occurrence of the external cause
CPT/HCPCS: 70450

== ENCOUNTER 2019-12-21 09:10 | Emergency (ER) | payer SELFPAY ==
[~2019-12-21] VITALS: Ht 182 cm; Wt 118.1 kg
[~2019-12-21 09:10] MED LIST changes: +MULT-567 PO; -MULT1TAB69 PO
--- NOTE | 2019-12-21 09:34 | ED Cardiac General ---
History of Present Illness General Chief Complaint: Cardiac/General Problems Stated Complaint: HEART RACING Source: patient Exam Limitations: no limitations (WILLIAMS BRADLEY,) History of Present Illness Date Seen by Provider: Dec 21, 2019 Time Seen by Provider: 09:18 Initial Comments Mr. Plunkett presented to the ER due to chest "fluttering" that started at 8am this morning. He took took his medications at 0730 prior to work. He was fine when he woke up, but at work noted fluttering. Denies any inciting event at work. He went left work, went home, and his brought him the to ER. Was previously diagnosed in Apr 2019 with atrial fibrillation. Is currently taking Eliquis for this. Had to be cardioverted after a trial of amiodarone drip. This attack feels the same as his previous one. He denies any chest pain, shortness of breath, blurry vision, abdominal pain, nausea/vomiting, weakness, or fatigue. He does admit to a small headache. He denies smoking history. His current contract administration coordinator is and he was recently seen Thursday (12/18). Denied any medication changes at this time. Pt had a stent placed 3 years ago and had an echo and stress test 1 year ago that were both normal. Timing/Duration: 1-3 hours, constant Prior CP/Workup: echocardiography, stress test, other (history of atrial fibrillation) NTG SL PANTOGRAPHER: No ASA po PANTOGRAPHER: Yes Associated Systoms: No Chest Pain, No Cough, No Fever/Chills; Headaches; No Nausea/Vomiting, No Shortness of Air, No Weakness (WILLIAMS BRADLEY,) Allergies and Home Medications Allergies Coded Allergies: No Known Drug Allergies (Unverified , 07/06/16) Home Medications Amlodipine Besylate 5 Mg Tablet, 5 MG PO HS, (Reported) Apixaban 5 Mg Tablet, 5 MG PO BID Prescribed by: FRANSISCO EISENBERG on 05/24/19 1610 Aspirin 81 Mg Tablet.dr, 81 MG PO DAILY, (Reported) Atorvastatin Calcium 10 Mg Tablet, 10 MG PO HS, (Reported) LAST FILLED #90 12-13-18 Diltiazem HCl 120 Mg Cap.er.24h, 120 MG PO DAILY Prescribed by: YULIA TO on 12/21/19 1136 Glyburide 1.25 Mg Tablet, 1.25 MG PO BID, (Reported) Lisinopril 40 Mg Tablet, 40 MG PO HS, (Reported) Metoprolol Succinate 100 Mg Tab.er.24h, 100 MG PO DAILY, (Reported) Multivitamin 1 Each Tablet, 1 TAB PO DAILY, (Reported) Patient Home Medication List Home Medication List Reviewed: Yes (WILLIAMS BRADLEY,) Review of Systems Review of Systems Constitutional: No chills, No fever, No weakness EENTM: No Blurred Vision Respiratory: Denies Cough, Denies Shortness of Air Cardiovascular: Irregular Heart Rate Gastrointestinal: Denies Abdominal Pain, Denies Nausea, Denies Vomiting Genitourinary: No Symptoms Reported Musculoskeletal: no symptoms reported Skin: no symptoms reported Psychiatric/Neurological: No Symptoms Reported Endocrine: No Symptoms Reported Hematologic/Lymphatic: No Symptoms Reported (WILLIAMS BRADLEY,) Past Eyhmnzc-Mxdseu-Msxgap Hx Patient Social History Alcohol Use: Occasionally Uses Alcohol Beverage of Choice: Beer Smoking Status: Never a Smoker Type Used: Smokeless Tobacco Former Smoker, Quit: Jun 29, 1996 2nd Hand Smoke Exposure: No Recent Foreign Travel: No Contact w/Someone Who Travel: No Recent Hopitalizations: No (WILLIAMS BRADLEY,) Immunizations Up To Date Date of Influenza Vaccine: Mar 30, 2019 (WILLIAMS BRADLEY,) Seasonal Allergies Seasonal Allergies: No (WILLIAMS BRADLEY,) Past Medical History Surgeries: Yes (CARDIAC CATH--STENT X 1) Cardiac, Coronary Stent Respiratory: No Currently Using CPAP: No Currently Using BIPAP: No Cardiac: Yes (CARDIAC STENT X1) Coronary Artery Disease, High Cholesterol, Hypertension Neurological: No Reproductive Disorders: No Genitourinary: No Gastrointestinal: No Musculoskeletal: Yes Fractures Endocrine: Yes Diabetes, Non-Insulin dep HEENT: No Loss of Vision: Denies Cancer: No Psychosocial: No Integumentary: No Blood Disorders: No (WILLIAMS BRADLEY,) Family Medical History Not obtainable due to adoption No Pertinent Family Hx (WILLIAMS BRADLEY,) Physical Exam Vital Signs Vital Signs - First Documented 12/21/19 09:10 Temp 37.0 Pulse 114 Resp 16 B/P (MAP) 146/94 (111) Pulse Ox 95 O2 Delivery Room Air (YULIA TO APRN) Vital Signs Capillary Refill : (WILLIAMS BRADLEY,) Height, Weight, BMI Height: 6'2.00" Weight: 238lbs. 0.0oz. 107.350791tc; 34.00 BMI Method:Stated General Appearance: No Apparent Distress, WD/WN HEENT: PERRL/EOMI Respiratory: Normal Breath Sounds, No Accessory Muscle Use Cardiovascular: No Murmur, Irregularly Irregular Extremity: Normal Inspection, No Pedal Edema Neurologic/Psychiatric: Alert, Oriented x3 Skin: Normal Color, Warm/Dry (WILLIAMS BRADLEY,) Progress/Results/Core Measures Results/Orders Lab Results Laboratory Tests Test 12/21/19 09:20 Range/Units White Blood Count 5.7 4.3-11.0 10^3/uL Red Blood Count 5.36 4.35-5.85 10^6/uL Hemoglobin 16.1 13.3-17.7 G/DL Hematocrit 45 40-54 % Mean Corpuscular Volume 84 80-99 FL Mean Corpuscular Hemoglobin 30 25-34 PG Mean Corpuscular Hemoglobin Concent 36 32-36 G/DL Red Cell Distribution Width 13.0 10.0-14.5 % Platelet Count 223 130-400 10^3/uL Mean Platelet Volume 10.5 H 7.4-10.4 FL Neutrophils (%) (Auto) 68 42-75 % Lymphocytes (%) (Auto) 20 12-44 % Monocytes (%) (Auto) 9 0-12 % Eosinophils (%) (Auto) 2 0-10 % Basophils (%) (Auto) 0 0-10 % Neutrophils # (Auto) 3.9 1.8-7.8 X 10^3 Lymphocytes # (Auto) 1.2 1.0-4.0 X 10^3 Monocytes # (Auto) 0.5 0.0-1.0 X 10^3 Eosinophils # (Auto) 0.1 0.0-0.3 10^3/uL Basophils # (Auto) 0.0 0.0-0.1 10^3/uL Prothrombin Time 13.5 12.2-14.7 SEC INR Comment 1.0 0.8-1.4 Activated Partial Thromboplast Time 31 24-35 SEC Sodium Level 137 135-145 MMOL/L Potassium Level 4.1 3.6-5.0 MMOL/L Chloride Level 103 98-107 MMOL/L Carbon Dioxide Level 24 21-32 MMOL/L Anion Gap 10 5-14 MMOL/L Blood Urea Nitrogen 13 7-18 MG/DL Creatinine 1.04 0.60-1.30 MG/DL Estimat Glomerular Filtration Rate > 60 BUN/Creatinine Ratio 13 Glucose Level 279 H 70-105 MG/DL Calcium Level 8.8 8.5-10.1 MG/DL Corrected Calcium 8.5 8.5-10.1 MG/DL Magnesium Level 1.9 1.6-2.4 MG/DL Total Bilirubin 0.4 0.1-1.0 MG/DL Aspartate Amino Transf (AST/SGOT) 18 5-34 U/L Alanine Aminotransferase (ALT/SGPT) 36 0-55 U/L Alkaline Phosphatase 87 40-136 U/L Myoglobin 24.2 10.0-92.0 NG/ML Troponin I < 0.028 <0.028 NG/ML Total Protein 7.1 6.4-8.2 GM/DL Albumin 4.4 3.2-4.5 GM/DL (YULIA TO APRN) My Orders Orders - YULIA TO APRN Metoprolol Tartrate Injection (Lopressor (12/21/19 11:00) Ns Iv 500 Ml (Sodium Chloride 0.9%) (12/21/19 11:30) Metoprolol Tartrate Injection (Lopressor (12/21/19 11:30) Diltiazem Cd 24 Hr Capsule (Cardizem Cd (12/21/19 11:45) (YULIA TO APRN) Medications Given in ED Current Medications Medications Dose Ordered Sig/Cayden Route Start Time Stop Time Status Last Admin Dose Admin Metoprolol Tartrate 5 mg ONCE ONCE IV 12/21/19 11:00 12/21/19 11:01 DC 12/21/19 10:57 5 MG Metoprolol Tartrate 5 mg ONCE ONCE IV 12/21/19 11:30 12/21/19 11:31 DC 12/21/19 11:28 5 MG (YULIA TO APRN) Vital Signs/I&O 12/21/19 09:10 Temp 37.0 Pulse 114 Resp 16 B/P (MAP) 146/94 (111) Pulse Ox 95 O2 Delivery Room Air (YULIA TO APRN) Departure Communication (Admissions) 1107-Karla seen the pt and agree with plan of care. Will do iv lopressor. 1149-Dr lancaster has been here to see the patient. Currently after 2 doses of IV lopressor HR is 96 still a-fib. 111/84 (YULIA TO APRN) Impression Primary Impression: Atrial fibrillation Disposition: HOME, SELF-CARE Condition: Stable Departure-Patient Inst. Decision time for Depature: 11:08 (YULIA TO APRN) Referrals: NADEGE SANTA MD (PCP/Family) Primary Care Physician Patient Instructions: Atrial Fibrillation (DC) Add. Discharge Instructions: 1. Add the new medication called Cardizem daily. See Dr lancaster tomorrow morning per his request. Call today for a time. Stop the norvasc (amlodipine) All discharge instructions reviewed with patient and/or family. Voiced understanding. Scripts Diltiazem HCl (Cardizem Cd) 120 Mg Cap.er.24h 120 MG PO DAILY, #30 CAP Prov: YULIA TO APRN 12/21/19 WILLIAMS BRADLEY, Dec 21, 2019 09:33 YULIA TO APRN Dec 21, 2019 10:51
--- NOTE | 2019-12-21 09:34 | NUR ---
NOTIFIED PT WAS HERE.
--- NOTE | 2019-12-21 09:54 | NUR ---
LAB CONTACTED DUE TO BLOOD NOT BEING RAN.
[2019-12-21 10:03] LABS: BASOPHILS % (AUTO) 0 % (0-10); EOSINOPHILS # (AUTO) 0.1 10^3/uL (0.0-0.3); EOSINOPHILS % (AUTO) 2 % (0-10); HEMATOCRIT 45 % (40-54); HEMOGLOBIN 16.1 G/DL (13.3-17.7); LYMPHOCYTES # (AUTO) 1.2 X 10^3 (1.0-4.0); LYMPHOCYTES % (AUTO) 20 % (12-44); MEAN CORPUSCULAR HEMOGLOBIN 30 PG (25-34); MEAN CORPUSCULAR HGB CONC 36 G/DL (32-36); MEAN CORPUSCULAR VOLUME 84 FL (80-99); MEAN PLATELET VOLUME 10.5 FL (7.4-10.4); MONOCYTES # (AUTO) 0.5 X 10^3 (0.0-1.0); MONOCYTES % (AUTO) 9 % (0-12); NEUTROPHILS # (AUTO) 3.9 X 10^3 (1.8-7.8); NEUTROPHILS % (AUTO) 68 % (42-75); PLATELET COUNT 223 10^3/uL (130-400); WHITE BLOOD COUNT 5.7 10^3/uL (4.3-11.0)
--- NOTE | 2019-12-21 10:07 | Diagnostic Imaging Report ---
INDICATION: Heart flutter. TIME OF EXAM: 10:05 AM. COMPARISON: 05/24/2019. FINDINGS: The heart size is stable. The right hemidiaphragm is chronically elevated. The lungs are clear. The pulmonary vascularity is normal. No infiltrate, effusion, or pneumothorax is detected. IMPRESSION: No acute cardiopulmonary process is detected. Dictated by: Dictated on workstation # [id number]
[2019-12-21 10:11] LABS: PROTHROMBIN TIME PATIENT 13.5 SEC (12.2-14.7)
[2019-12-21 10:12] LABS: ALBUMIN 4.4 GM/DL (3.2-4.5)
[2019-12-21 10:13] LABS: CHLORIDE 103 MMOL/L (98-107); POTASSIUM 4.1 MMOL/L (3.6-5.0); SODIUM 137 MMOL/L (135-145)
[2019-12-21 10:14] LABS: CALCIUM 8.8 MG/DL (8.5-10.1)
[2019-12-21 10:15] LABS: GLUCOSE 279 MG/DL (70-105); TOTAL PROTEIN 7.1 GM/DL (6.4-8.2)
[2019-12-21 10:16] LABS: CARBON DIOXIDE 24 MMOL/L (21-32)
[2019-12-21 10:17] LABS: BILIRUBIN,TOTAL 0.4 MG/DL (0.1-1.0)
[2019-12-21 10:18] LABS: ALKALINE PHOSPHATASE 87 U/L (40-136)
[2019-12-21 10:19] LABS: CREATININE SERUM 1.04 MG/DL (0.60-1.30); GFR ESTIMATED > 60
[2019-12-21 10:20] LABS: BUN/CREATININE RATIO 13
[2019-12-21 10:22] LABS: ALANINE AMINOTRANSFERASE 36 U/L (0-55); MAGNESIUM 1.9 MG/DL (1.6-2.4)
--- NOTE | 2019-12-21 10:26 | NUR ---
RESTING IN BED. NOTIFIED PT THAT DR WAS WITH OTHER PTS AND WOULD BE IN TO SEE HIM SOON HE COULD. DENIES NEEDS AT THIS TIME.
[2019-12-21] MEDS ORDERED: meTOprolol 5 MG/5 ML (LOPRESSOR) VIAL IV ONE ×2 (11:00→11:30)
--- NOTE | 2019-12-21 11:10 | NUR ---
REPORT GIVEN TO BILLY
[2019-12-21] MEDS ORDERED: NS IV 500 ML 500 ML IV SCH (11:30)
[2019-12-21] MEDS ORDERED: DILT120C82 PO (11:36)
[2019-12-21] MEDS ORDERED: dilTIAZem120 MG (CARDIZEM CD) CAP PO SCH (11:45)
[2019-12-21 12:07] VITALS: BP 115/95
== END 2019-12-21 12:07 | disposition home or self-care (01) ==
LOC: EDUNIT# 09:10 → ER 09:11
DX: I48.91 Unspecified atrial fibrillation (principal); I10 Essential (primary) hypertension; E78.00 Pure hypercholesterolemia, unspecified; I25.10 Atherosclerotic heart disease of native coronary artery without angina pectoris; E11.9 Type 2 diabetes mellitus without complications; Z79.01 Long term (current) use of anticoagulants; Z95.5 Presence of coronary angioplasty implant and graft; Z79.82 Long term (current) use of aspirin; Z87.891 Personal history of nicotine dependence
CPT/HCPCS: 36415; 71045; 80053; 83735; 83874; 84484; 85025; 85610; 85730; 93005

== ENCOUNTER → 2019-12-26 | Outpatient (CLI) | payer SELFPAY ==
[~2019-12-26] VITALS: Ht 188 cm; Wt 117.0 kg
[~2019-12-26] MED LIST changes: +CATHETER FLUSH 10 ML SYR IV PRN; +DILT120C82 PO; +REGADENOSON 0.4 MG/5 ML SYR (LEXISCAN) IV ONE
[2019-12-26 09:09] VITALS: BP 140/97
[2019-12-26 09:11] VITALS: BP 146/87
[2019-12-26 09:14] VITALS: BP 137/98
--- NOTE | 2019-12-26 13:27 | Cardiology Stress Test Report ---
Stress Test Report Date of Procedure/Referring: Date of Procedure: Dec 26, 2019 PCP Glo Ramirez Admitting Physician Ashley Al MD Indications: Chest pain Baseline Heart Rate: 94 Baseline Blood Pressure: Blood Pressure Systolic: 137 Blood Pressure Diastolic: 98 Baseline EKG: Baseline EKG: normal sinus rhythm Summary/Conclusion Patient received 0.4 mg Lexiscan for stress test, ECG, heart rate and blood pressure were monitored continuously. Resting and stress dose of radio tracer were injected, imaging was acquired and reviewed in short axis, horizontal long axis and vertical long axis views. TID 1.03 SSS 5 SDS 3 EF 51% Conclusion: 1. Patient tolerated Lexiscan well 2. Diaphragmatic attenuation with mild decrease uptake at the mid to apical anterior lateral segment with subtle reversibility, no significant ischemia or infarction noted 3. Normal left ventricular size, EF 51 percent LEONARDO ROSS MD Dec 26, 2019 13:27
== END ==
LOC: CARD 07:15
PROVIDERS: ATTEND Physician Assistant
DX: I48.91 Unspecified atrial fibrillation (principal); I10 Essential (primary) hypertension; G47.33 Obstructive sleep apnea (adult) (pediatric)
CPT/HCPCS: 78452; 93017; A9502

== ENCOUNTER 2020-01-04 09:45 | Day surgery (SDC) | payer SELFPAY ==
[~2020-01-04] VITALS: Ht 183 cm; Wt 116.0 kg
[~2020-01-04 09:45] MED LIST changes: -CATHETER FLUSH 10 ML SYR IV PRN; -REGADENOSON 0.4 MG/5 ML SYR (LEXISCAN) IV ONE
[2020-01-04] MEDS ORDERED: LIDOCAINE 1% INJ 20 ML 20 ML VIAL ONE (09:52)
[2020-01-04 10:00] VITALS: BP 136/95
[2020-01-04] MEDS ORDERED: LIDOCAINE 1% INJ 20 ML 20 ML VIAL INJ ONE (10:00)
--- NOTE | 2020-01-04 10:27 | Implantation of Loop Monitor ---
Implant of Loop Monitior IMPLANTATION OF LOOP MONITOR REPORT DATE OF PROCEDURE: 01/04/20 PREOP DIAGNOSIS: Paroxysmal atrial fibrillation POSTOP DIAGNOSIS: Paroxysmal atrial fibrillation PROCEDURE DETAILS: The patient is a 44 male with history of paroxysmal atrial fibrillation requiring long-term surveillance. Therefore implantable loop recorder was discussed and agreed with the patient. Informed consent was taken. All risks and complications were discussed at length. The patient was draped and prepped in the usual sterile fashion. Local anesthesia was lidocaine, which was given in the substernal area close to the 4th intercostal space. Loop monitor [employer] with serial number [id number] was implanted according to the protocol. Steri- Strips were placed at the end of the procedure. There were no complications and the patient tolerated the procedure well. The device was interrogated with a voltage of. ANESTHESIA: Local anesthesia with lidocaine. COMPLICATIONS: None CONTRAST/FLUOROSCOPY: None CONCLUSION: Successful implantation of loop recorder with no complication FINAL DIAGNOSIS: Paroxysmal atrial fibrillation Coronary artery disease Hypertension Hyperlipidemia LEONARDO ROSS MD Jan 04, 2020 10:27
== END 2020-01-04 10:59 | disposition home or self-care (01) ==
LOC: CATH 09:45
PROVIDERS: ATTEND Internal Medicine Cardiovascular Disease
DX: I48.0 Paroxysmal atrial fibrillation (principal); I25.10 Atherosclerotic heart disease of native coronary artery without angina pectoris; I10 Essential (primary) hypertension; E78.5 Hyperlipidemia, unspecified
CPT/HCPCS: 33285; C1764

== ENCOUNTER 2020-08-20 22:31 | Emergency (ER) | payer OTHER ==
[~2020-08-20] VITALS: Ht 182.9 cm; Wt 115.7 kg
[~2020-08-20 22:31] MED LIST changes: +AMLO-250 PO; -AMLO5TAB9 PO; +ASPI-1238 PO; -ASPI-983 PO; -LISI40TA PO; +LISI40TA9 PO
--- NOTE | 2020-08-20 22:59 | ED Cough/URI ---
General Chief Complaint: Respiratory Problems Stated Complaint: FEVER,ALL OVER BODY ACHES,CHILLS Nursing Triage Note: PT AMBULATE TO ROOM FS05 WITH C/O DIFFICULTY BREATHING AND NOT FEELING WELL. PT REPORTS THAT THIS IS HE LAST DAY ON QUARNTINE BECAUSE HIS GIRLFRIEND HAD TESTED COVID POS. SYMPTOMS STARTED X1 HOUR CALL OR CONTACT CENTRE TEAM LEADER. Sepsis Screen: Possible Severe Sepsis Risk History of Present Illness Date Seen by Provider: Aug 20, 2020 Time Seen by Provider: 22:54 Initial Comments 44-year-old female presents with generalized body aches, chills and feels like he is having some shortness of breath. Patient reports that the symptoms started about an hour ago. The he is gotten real sweaty. The today was his last day of quarantine because his girl friend tested positive for Covid. Reports up to an hour ago is not having symptoms. Patient reports a temperature as high as 100.3. He denies any loss of sense of taste or smell, no nausea, vomiting, diarrhea, cough or chest pain. Allergies and Home Medications Allergies Coded Allergies: No Known Drug Allergies (Unverified , 07/06/16) Home Medications Amlodipine Besylate 5 Mg Tablet, 5 MG PO HS, (Reported) Apixaban 5 Mg Tablet, 5 MG PO BID Prescribed by: FRANSISCO EISENBERG on 05/24/19 1610 Aspirin 81 Mg Tablet.dr, 81 MG PO DAILY, (Reported) Atorvastatin Calcium 10 Mg Tablet, 10 MG PO HS, (Reported) LAST FILLED #90 06-10-18 Azithromycin 250 Mg Tablet, 250 MG PO DAILY Prescribed by: MIMI HARO on 08/21/20 0040 Diltiazem HCl 120 Mg Cap.er.24h, 120 MG PO DAILY Prescribed by: YULIA TO on 12/21/19 1136 Glyburide 1.25 Mg Tablet, 1.25 MG PO BID, (Reported) Lisinopril 40 Mg Tablet, 40 MG PO HS, (Reported) Metoprolol Succinate 100 Mg Tab.er.24h, 100 MG PO DAILY, (Reported) Multivitamin 1 Each Tablet, 1 TAB PO DAILY, (Reported) Patient Home Medication List Home Medication List Reviewed: Yes Review of Systems Review of Systems Constitutional: chills, fever, malaise EENTM: No nose congestion, No throat pain Respiratory: No cough; short of breath Cardiovascular: No chest pain, No palpitations Gastrointestinal: No diarrhea, No nausea, No vomiting Musculoskeletal: see HPI Skin: no symptoms reported Psychiatric/Neurological: No Symptoms Reported Hematologic/Lymphatic: No Symptoms Reported Past Mtsppbl-Kdqald-Svwebs Hx Past Med/Social Hx: Reviewed Nursing Past Med/Soc Hx Patient Social History Alcohol Use: Rarely Uses Number of Drinks Today: AA Alcohol Beverage of Choice: Beer Smoking Status: Never a Smoker Type Used: Smokeless Tobacco Former Smoker, Quit: Jun 29, 1996 2nd Hand Smoke Exposure: No Recent Infectious Disease Expo: No Recent Hopitalizations: No Immunizations Up To Date Tetanus Booster (TDap): Unknown Date of Influenza Vaccine: Mar 30, 2019 Seasonal Allergies Seasonal Allergies: No Past Medical History Surgeries: Yes (CARDIAC CATH--STENT X 1) Cardiac, Coronary Stent Respiratory: No Sleep Apnea Currently Using CPAP: Yes Currently Using BIPAP: No Cardiac: Yes (CARDIAC STENT X1) Atrial Fibrillation, Coronary Artery Disease, High Cholesterol, Hypertension Neurological: No Reproductive Disorders: No Genitourinary: No Gastrointestinal: No Musculoskeletal: Yes Fractures Endocrine: Yes Diabetes, Non-Insulin dep HEENT: No Loss of Vision: Denies Cancer: No Psychosocial: No Integumentary: No Blood Disorders: No Family Medical History Not obtainable due to adoption No Pertinent Family Hx Physical Exam Vital Signs - First Documented 08/20/20 2 22:45 01:06 Temp 38.4 Pulse 101 Resp 16 B/P (MAP) 165/104 (124) Pulse Ox 99 O2 Delivery Room Air Capillary Refill : Less Than 3 Seconds Height: 6'2.00" Weight: 238lbs. 0.0oz. 107.522938hh; 34.00 BMI Method:Stated General Appearance: WD/WN, no apparent distress Respiratory: lungs clear, normal breath sounds Cardiovascular: normal peripheral pulses, regular rate, rhythm Gastrointestinal: non tender, soft Neurologic/Psychiatric: alert, normal mood/affect, oriented x 3 Skin: normal color, warm/dry Focused Exam Lactate Level 08/20/20 23:30: Lactic Acid Level 2.40*H Lactic Acid Level Laboratory Tests Test 08/20/20 23:30 Lactic Acid Level 2.40 MMOL/L (0.50-2.00) *H Progress/Results/Core Measures Suspected Sepsis Recent Fever Within 48 Hours: Yes Infection Criteria Present: Suspected New Infection New/Unexplained Altered Menta: No Sepsis Screen: Possible Severe Sepsis Risk SIRS Temperature: Pulse: 101 Respiratory Rate: 16 Laboratory Tests 08/20/20 23:30: White Blood Count 16.5H Blood Pressure 165 /104 Mean: 124 08/20/20 23:30: Lactic Acid Level 2.40*H Laboratory Tests 08/20/20 23:30: Creatinine 0.83, INR Comment 1.0, Platelet Count 217, Total Bilirubin 0.4 Results/Orders Lab Results Laboratory Tests Test 08/20/20 23:30 Range/Units White Blood Count 16.5 H 4.3-11.0 10^3/uL Red Blood Count 5.49 4.35-5.85 10^6/uL Hemoglobin 16.4 13.3-17.7 G/DL Hematocrit 47 40-54 % Mean Corpuscular Volume 86 80-99 FL Mean Corpuscular Hemoglobin 30 25-34 PG Mean Corpuscular Hemoglobin Concent 35 32-36 G/DL Red Cell Distribution Width 12.6 10.0-14.5 % Platelet Count 217 130-400 10^3/uL Mean Platelet Volume 10.5 H 7.4-10.4 FL Immature Granulocyte % (Auto) 0 % Neutrophils (%) (Auto) 87 H 42-75 % Lymphocytes (%) (Auto) 5 L 12-44 % Monocytes (%) (Auto) 7 0-12 % Eosinophils (%) (Auto) 1 0-10 % Basophils (%) (Auto) 0 0-10 % Neutrophils # (Auto) 14.3 H 1.8-7.8 X 10^3 Lymphocytes # (Auto) 0.9 L 1.0-4.0 X 10^3 Monocytes # (Auto) 1.1 H 0.0-1.0 X 10^3 Eosinophils # (Auto) 0.1 0.0-0.3 10^3/uL Basophils # (Auto) 0.0 0.0-0.1 10^3/uL Immature Granulocyte # (Auto) 0.1 0.0-0.1 10^3/uL Neutrophils % (Manual) 82 % Lymphocytes % (Manual) 3 % Monocytes % (Manual) 5 % Eosinophils % (Manual) 1 % Basophils % (Manual) 1 % Band Neutrophils 8 % Prothrombin Time 13.0 12.2-14.7 SEC INR Comment 1.0 0.8-1.4 Activated Partial Thromboplast Time 24 24-35 SEC Sodium Level 138 135-145 MMOL/L Potassium Level 3.9 3.6-5.0 MMOL/L Chloride Level 101 98-107 MMOL/L Carbon Dioxide Level 25 21-32 MMOL/L Anion Gap 12 5-14 MMOL/L Blood Urea Nitrogen 15 7-18 MG/DL Creatinine 0.83 0.60-1.30 MG/DL Estimat Glomerular Filtration Rate > 60 BUN/Creatinine Ratio 18 Glucose Level 240 H 70-105 MG/DL Lactic Acid Level 2.40 *H 0.50-2.00 MMOL/L Calcium Level 9.2 8.5-10.1 MG/DL Corrected Calcium 8.5-10.1 MG/DL Total Bilirubin 0.4 0.1-1.0 MG/DL Aspartate Amino Transf (AST/SGOT) 29 5-34 U/L Alanine Aminotransferase (ALT/SGPT) 55 0-55 U/L Alkaline Phosphatase 96 40-136 U/L Troponin I < 0.30 <0.30 NG/ML C-Reactive Protein 0.30 <0.50 MG/DL Total Protein 7.4 6.4-8.2 GM/DL Albumin 4.7 H 3.2-4.5 GM/DL Micro Results Microbiology 08/20/20 Influenza Types A,B Antigen (TEE) - Final, Complete My Orders Orders - MIMI HARO DO Vital Signs: Every 4 Hours (Or (08/20/20 23:06) Monitor-Rhythm Ecg Trace Only (08/20/20 23:06) Cbc With Automated Diff (08/20/20 23:06) Comprehensive Metabolic Panel (08/20/20 23:06) Ferritin (08/20/20 23:06) LDH (08/20/20 23:06) Crp Fs (08/20/20 23:06) Troponin I Fs (08/20/20 23:06) Lactic Acid Analyzer (08/20/20 23:06) Protime With Inr (08/20/20 23:06) Partial Thromboplastin Time (08/20/20 23:06) Ekg Tracing (08/20/20 23:06) Acetaminophen Tablet/Caplet (Tylenol T (08/20/20 23:15) Influenza A And B Antigens (08/20/20 23:06) Coronavirus Sars-Cov-2 So 2018 (08/20/20 23:06) Chest 1 View Ap/Pa Only (08/20/20 23:22) Manual Differential (08/20/20 23:30) Ceftriaxone For Iv Use (Rocephin For I (08/21/20 00:30) Azithromycin Tablet (Zithromax Tablet) (08/21/20 00:29) Albuterol/Ipra Inhalation Soln (Duoneb I (08/21/20 00:45) Svn Small Volume Nebulizer (08/21/20 00:34) Medications Given in ED Current Medications Medications Dose Ordered Sig/Cayden Route Start Time Stop Time Status Last Admin Dose Admin Acetaminophen 650 mg ONCE ONCE PO 08/20/20 23:15 08/20/20 23:16 DC 08/20/20 23:17 650 MG Albuterol/ Ipratropium 3 ml ONCE ONCE INH 08/21/20 00:45 08/21/20 00:46 DC 08/21/20 00:43 3 ML Ceftriaxone Sodium 1000 mg/ Sterile Water 10 ml @ 200 mls/hr ONCE ONCE IV 08/21/20 00:30 08/21/20 00:32 DC 08/21/20 00:43 200 MLS/HR Vital Signs/I&O 08/20/20 08/20/20 08/21/20 22:45 23:17 01:06 Temp 38.4 38.4 Pulse 101 71 Resp 16 17 B/P (MAP) 165/104 (124) 122/71 Pulse Ox 99 O2 Delivery Room Air Room Air Capillary Refill : Less Than 3 Seconds Blood Pressure Mean: 124 Progress Note : Time: 00:37 Progress Note Patient's oxygen saturation ranged from about 93 to 97% while in the ER on room air. He has known sleep apnea and is obese and I suspect his oxygen is baseline 95. He does use a CPAP at night. He has a very slight elevation of his lactate however is not tachycardic or showing signs of dehydration. He does have an elevated white count. He continually denies any chest pain. He reports he feels a little better following the Tylenol. At this time I will treat him for a bacterial type infection to the high white count but no elevation in CRP. The body aches and the fever. He received Rocephin here in the ER along with some azithromycin. I will prescribe him the rest of the 5-day course of azithromycin. He should return the ER if symptoms worsen. Follow-up with his primary care provider in a couple days for recheck of his conditions. ECG Initial ECG Impression Date: Aug 20, 2020 Initial ECG Impression Time: 23:20 Initial ECG Rhythm: Normal Sinus Initial ECG Impression: Nonspecific Changes Comment no acute findings Departure Impression Primary Impression: Upper respiratory infection, viral Disposition: 01 HOME, SELF-CARE Condition: Stable Departure-Patient Inst. Referrals: NADEGE SANTA MD (PCP) Primary Care Physician Patient Instructions: Bacterial Upper Respiratory Infection, Adult (DC), Coronavirus Disease 2019 (COVID-19) (DC) Add. Discharge Instructions: Follow-up with your primary care provider in 3 to 4 days for recheck of today's symptoms Please continue quarantine and isolation guidelines until your Covid test has returned Return to the ER if symptoms worsen. All discharge instructions reviewed with patient and/or family. Voiced understanding. Scripts Azithromycin (Azithromycin) 250 Mg Tablet 250 MG PO DAILY, #4 TAB 0 Refills Prov: MIMI HARO DO 08/21/20 MIMI HARO DO Aug 20, 2020 22:59
[2020-08-20] MEDS ORDERED: ACETAMINOPHEN 325 MG TABLET PO ONE (23:15)
[2020-08-20 23:45] LABS: HEMATOCRIT 47 % (40-54); HEMOGLOBIN 16.4 G/DL (13.3-17.7); MEAN CORPUSCULAR HEMOGLOBIN 30 PG (25-34); MEAN CORPUSCULAR HGB CONC 35 G/DL (32-36); MEAN CORPUSCULAR VOLUME 86 FL (80-99); MEAN PLATELET VOLUME 10.5 FL (7.4-10.4); PLATELET COUNT 217 10^3/uL (130-400); WHITE BLOOD COUNT 16.5 10^3/uL (4.3-11.0)
[2020-08-20 23:46] LABS: BASOPHILS % (AUTO) 0 % (0-10); EOSINOPHILS # (AUTO) 0.1 10^3/uL (0.0-0.3); EOSINOPHILS % (AUTO) 1 % (0-10); LYMPHOCYTES # (AUTO) 0.9 X 10^3 (1.0-4.0); LYMPHOCYTES % (AUTO) 5 % (12-44); MONOCYTES # (AUTO) 1.1 X 10^3 (0.0-1.0); MONOCYTES % (AUTO) 7 % (0-12); NEUTROPHILS # (AUTO) 14.3 X 10^3 (1.8-7.8); NEUTROPHILS % (AUTO) 87 % (42-75)
[2020-08-21 00:06] LABS: BAND NEUTROPHILS 8 %; BASOPHILS % (MANUAL) 1 %; EOSINOPHILS % (MANUAL) 1 %; LYMPHOCYTES % (MANUAL) 3 %; MONOCYTES % (MANUAL) 5 %; NEUTROPHILS % (MANUAL) 82 %
[2020-08-21 00:13] LABS: ALKALINE PHOSPHATASE 96 U/L (40-136); BILIRUBIN,TOTAL 0.4 MG/DL (0.1-1.0); BUN/CREATININE RATIO 18; CALCIUM 9.2 MG/DL (8.5-10.1); CARBON DIOXIDE 25 MMOL/L (21-32); CHLORIDE 101 MMOL/L (98-107); CREATININE SERUM 0.83 MG/DL (0.60-1.30); GFR ESTIMATED > 60; GLUCOSE 240 MG/DL (70-105); POTASSIUM 3.9 MMOL/L (3.6-5.0); SODIUM 138 MMOL/L (135-145)
[2020-08-21 00:14] LABS: ALANINE AMINOTRANSFERASE 55 U/L (0-55); ALBUMIN 4.7 GM/DL (3.2-4.5); TOTAL PROTEIN 7.4 GM/DL (6.4-8.2)
[2020-08-21] MEDS ORDERED: AZITHROMYCIN 250 MG TAB (ZITHROMAX) PO STA (00:29)
[2020-08-21] MEDS ORDERED: cefTRIAXone FOR IV USE 1,000 MG in WATER (STERILE) FOR INJECTION 10 ML IV ONE (00:30)
[2020-08-21] MEDS ORDERED: AZIT250T12 PO (00:40)
[2020-08-21] MEDS ORDERED: RT-ALBUTEROL/IPRATROPIUM 3 ML (DUONEB) VIAL INH ONE (00:45)
[2020-08-21 01:06] VITALS: BP 122/71
--- NOTE | 2020-08-21 07:31 | Diagnostic Imaging Report ---
Indication: Short of breath Examination: Chest 08/20/2020 Comparison: 12/21/2019 Single view chest A recorder device overlying the left mid chest. Heart and pulmonary vasculature normal. Lungs and pleural spaces clear. Impression: 1. No acute process. Dictated by: Dictated on workstation # [id number]
== END 2020-08-21 01:06 | disposition home or self-care (01) ==
LOC: EDUNIT# 22:31 → ER FS 22:33
DX: J06.9 Acute upper respiratory infection, unspecified (principal); E78.00 Pure hypercholesterolemia, unspecified; I48.91 Unspecified atrial fibrillation; I25.10 Atherosclerotic heart disease of native coronary artery without angina pectoris; I10 Essential (primary) hypertension; E11.9 Type 2 diabetes mellitus without complications; Z20.822 Contact with and (suspected) exposure to COVID-19; Z95.5 Presence of coronary angioplasty implant and graft; Z95.9 Presence of cardiac and vascular implant and graft, unspecified; Z87.891 Personal history of nicotine dependence; Z79.01 Long term (current) use of anticoagulants; Z79.82 Long term (current) use of aspirin
CPT/HCPCS: 36415; 71045; 80053; 82728; 83605; 83615; 84484; 85007; 85027; 85610; 85730; 86141; 87804 ×2; 93041; 99284; U0002; 87635; 93005

== ENCOUNTER 2021-05-13 16:57 | Inpatient (IN) | payer OTHER ==
[~2021-05-13] VITALS: Ht 190.5 cm; Wt 116.8 kg
[~2021-05-13 16:57] MED LIST changes: +AZIT250T12 PO
--- NOTE | 2021-05-13 17:23 | ED Respiratory ---
General Chief Complaint: COVID19 Suspect/Confirmed Stated Complaint: COVID + SOA/FEVER Source: patient Exam Limitations: no limitations History of Present Illness Date Seen by Provider: May 13, 2021 Time Seen by Provider: 17:00 Initial Comments 45-year-old male with past medical history of diabetes, CAD, hypertension, hyperlipidemia, A. fib on Eliquis coming in due to being Covid positive and now being more short of breath. Began having a cough and fever on May 07. Tested positive for Covid the next day at an urgent care. Since then has had diarrhea and continued fever every day with the cough. Began feeling short of breath today and so he presented here. Denies any chest pain, abdominal pain, current nausea, weakness, numbness, dysuria, or any other concerns. Has been taking all of his home meds as prescribed including his Eliquis and has not missed any doses. Was not immunized for Covid. Is a full code. Allergies and Home Medications Allergies Coded Allergies: No Known Drug Allergies (Unverified , 07/06/16) Patient Home Medication List Home Medication List Reviewed: Yes Amlodipine Besylate (Amlodipine Besylate) 5 Mg Tablet, 5 MG PO HS, (Reported) Entered as Reported by: JERRI ROSAS on 05/23/19 0948 Apixaban (Eliquis) 5 Mg Tablet, 5 MG PO BID Prescribed by: FRANSISCO EISENBERG on 05/24/19 1610 Aspirin (Aspirin EC) 81 Mg Tablet.dr, 81 MG PO DAILY, (Reported) Entered as Reported by: JERRI ROSAS on 09/15/17 0934 Atorvastatin Calcium (Atorvastatin Calcium) 10 Mg Tablet, 10 MG PO HS, (Reported) Entered as Reported by: JERRI ROSAS on 09/15/17 0934 Azithromycin (Azithromycin) 250 Mg Tablet, 250 MG PO DAILY Prescribed by: MIMI HARO on 08/21/20 0040 Diltiazem HCl (Cardizem Cd) 120 Mg Cap.er.24h, 120 MG PO DAILY Prescribed by: YULIA TO on 12/21/19 1136 Glyburide (Glyburide) 1.25 Mg Tablet, 1.25 MG PO BID, (Reported) Entered as Reported by: JERRI ROSAS on 09/15/17 0934 Lisinopril (Lisinopril) 40 Mg Tablet, 40 MG PO HS, (Reported) Entered as Reported by: JERRI ROSAS on 05/23/19947 Metoprolol Succinate (Metoprolol Succinate) 100 Mg Tab.er.24h, 100 MG PO DAILY, (Reported) Entered as Reported by: JERRI ROSAS on 05/23/19947 Multivitamin (Multivitamins) 1 Each Tablet, 1 TAB PO DAILY, (Reported) Entered as Reported by: JERRI ROSAS on 05/23/19947 Review of Systems Review of Systems Constitutional: fever EENTM: No blurred vision Respiratory: cough, short of breath Cardiovascular: No chest pain Gastrointestinal: No abdominal pain; diarrhea Genitourinary: no symptoms reported Musculoskeletal: no symptoms reported Skin: no symptoms reported Psychiatric/Neurological: No Symptoms Reported Hematologic/Lymphatic: No Symptoms Reported Immunological/Allergic: no symptoms reported All Other Systems Reviewed Negative Unless Noted: Yes Past Wjshyat-Vnpfpn-Drinss Hx Patient Social History Substance use?: No Alcohol Use?: Yes Alcohol Frequency: Once in a while Immunizations Up To Date Tetanus Booster (TDap): Unknown Seasonal Allergies Seasonal Allergies: No Past Medical History Surgeries: Yes (CARDIAC CATH--STENT X 1) Cardiac, Coronary Stent Respiratory: No Sleep Apnea Currently Using CPAP: Yes Currently Using BIPAP: No Cardiac: Yes (CARDIAC STENT X1) Atrial Fibrillation, Coronary Artery Disease, High Cholesterol, Hypertension Neurological: No Reproductive Disorders: No Genitourinary: No Gastrointestinal: No Musculoskeletal: Yes Fractures Endocrine: Yes Diabetes, Non-Insulin dep HEENT: No Loss of Vision: Denies Cancer: No Psychosocial: No Integumentary: No Blood Disorders: No Family Medical History Not obtainable due to adoption No Pertinent Family Hx Physical Exam Vital Signs - First Documented 05/13/21 17:00 Temp 36.5 Pulse 103 Resp 18 B/P (MAP) 138/79 (98) O2 Delivery Room Air Capillary Refill : Height: 6'2.00" Weight: 238lbs. 0.0oz. 107.511712jh; 34.00 BMI Method:Stated General Appearance: WD/WN, no apparent distress Eyes: Bilateral Eye Normal Inspection, Bilateral Eye PERRL HEENT: PERRL/EOMI, normal ENT inspection, pharynx normal Neck: non-tender, full range of motion, supple, normal inspection Respiratory: chest non-tender, no respiratory distress, no accessory muscle use, rales Cardiovascular: regular rate, rhythm, no edema, no murmur Gastrointestinal: normal bowel sounds, non tender, soft; No distended, No guarding, No rebound Extremities: normal range of motion, non-tender, normal inspection, no pedal edema, no calf tenderness, normal capillary refill Neurologic/Psychiatric: no motor/sensory deficits, alert, normal mood/affect Skin: normal color, warm/dry Lymphatic: no adenopathy Focused Exam Lactate Level 05/13/21 17:52: Lactic Acid Level 1.31 Lactic Acid Level Laboratory Tests Test 05/13/21 17:52 Lactic Acid Level 1.31 MMOL/L (0.50-2.00) Progress/Results/Core Measures Suspected Sepsis SIRS Temperature: Pulse: Respiratory Rate: Laboratory Tests 05/13/21 17:47: White Blood Count 5.6 Blood Pressure / Mean: 05/13/21 17:52: Lactic Acid Level 1.31 Laboratory Tests 05/13/21 17:47: Creatinine 1.07, INR Comment 1.0, Platelet Count 137, Total Bilirubin 0.5 Results/Orders Lab Results Laboratory Tests Test 05/13/21 17:47 05/13/21 17:52 Range/Units White Blood Count 5.6 4.3-11.0 10^3/uL Red Blood Count 4.75 4.30-5.52 10^6/uL Hemoglobin 14.2 13.3-17.7 g/dL Hematocrit 40 40-54 % Mean Corpuscular Volume 85 80-99 fL Mean Corpuscular Hemoglobin 30 25-34 pg Mean Corpuscular Hemoglobin Concent 35 32-36 g/dL Red Cell Distribution Width 12.4 10.0-14.5 % Platelet Count 137 130-400 10^3/uL Mean Platelet Volume 10.9 9.0-12.2 fL Immature Granulocyte % (Auto) 0 % Neutrophils (%) (Auto) 79 H 42-75 % Lymphocytes (%) (Auto) 12 12-44 % Monocytes (%) (Auto) 8 0-12 % Eosinophils (%) (Auto) 0 0-10 % Basophils (%) (Auto) 0 0-10 % Neutrophils # (Auto) 4.4 1.8-7.8 X 10^3 Lymphocytes # (Auto) 0.7 L 1.0-4.0 X 10^3 Monocytes # (Auto) 0.5 0.0-1.0 X 10^3 Eosinophils # (Auto) 0.0 0.0-0.3 10^3/uL Basophils # (Auto) 0.0 0.0-0.1 10^3/uL Immature Granulocyte # (Auto) 0.0 0.0-0.1 10^3/uL Prothrombin Time 13.6 12.2-14.7 SEC INR Comment 1.0 0.8-1.4 Activated Partial Thromboplast Time 34 24-35 SEC D-Dimer 0.34 0.00-0.49 UG/ML Sodium Level 131 L 135-145 MMOL/L Potassium Level 3.8 3.6-5.0 MMOL/L Chloride Level 93 L 98-107 MMOL/L Carbon Dioxide Level 23 21-32 MMOL/L Anion Gap 15 H 5-14 MMOL/L Blood Urea Nitrogen 19 H 7-18 MG/DL Creatinine 1.07 0.60-1.30 MG/DL Estimat Glomerular Filtration Rate 74 BUN/Creatinine Ratio 18 Glucose Level 197 H 70-105 MG/DL Calcium Level 8.5 8.5-10.1 MG/DL Corrected Calcium 8.8 8.5-10.1 MG/DL Total Bilirubin 0.5 0.1-1.0 MG/DL Aspartate Amino Transf (AST/SGOT) 34 5-34 U/L Alanine Aminotransferase (ALT/SGPT) 44 0-55 U/L Alkaline Phosphatase 66 40-136 U/L Troponin I < 0.30 <0.30 NG/ML C-Reactive Protein 13.92 H <0.50 MG/DL Total Protein 6.8 6.4-8.2 GM/DL Albumin 3.6 3.2-4.5 GM/DL Lactic Acid Level 1.31 0.50-2.00 MMOL/L My Orders Orders - LESLY PERES MD Monitor-Rhythm Ecg Trace Only (05/13/21 17:18) Cbc With Automated Diff (05/13/21 17:18) Comprehensive Metabolic Panel (05/13/21 17:18) Ferritin (05/13/21 17:18) LDH (05/13/21 17:18) Crp Fs (05/13/21 17:18) Troponin I Fs (05/13/21 17:18) Lactic Acid Analyzer (05/13/21 17:18) Protime With Inr (05/13/21 17:18) Partial Thromboplastin Time (05/13/21 17:18) Fibrin Degradation Products (05/13/21 17:18) Fibrinogen (05/13/21 17:18) Ekg Tracing (05/13/21 17:18) Acetaminophen Tablet/Caplet (Tylenol T (05/13/21 17:30) Covid-19 External Lab Results (05/13/21 17:18) Chest 1 View Ap/Pa Only (05/13/21 17:18) Medications Given in ED Current Medications Medications Dose Ordered Sig/Cayden Route Start Time Stop Time Status Last Admin Dose Admin Acetaminophen 650 mg ONCE ONCE PO 05/13/21 17:30 05/13/21 17:31 DC 05/13/21 17:40 650 MG Vital Signs/I&O 05/13/21 05/13/21 05/13/21 17:00 17:00 17:40 Temp 36.5 38.3 Pulse 103 Resp 18 B/P (MAP) 138/79 (98) O2 Delivery Room Air Room Air Capillary Refill : Progress Note : Progress Note 45-year-old male with above history coming in due to being Covid positive and now feeling more short of breath. He was 87% on room air on arrival and was placed on 1 L. Reportedly he was 83% earlier today. He has crackles bilaterally. No clinical signs of a DVT and he has not missed any doses of his Eliquis so unlikely that he has a PE. IV placed and basic labs obtained including labs per Covid protocol. Chest x-ray ordered as well. Given his low oxygen with a new requirement he will require admission. Chest x-ray with bilateral infiltrates concerning for Covid. White blood count normal, lactate normal, D-dimer within normal limits, and labs otherwise unremarkable. I called and discussed the case with Dr. Rashid who is on-call for [facility] and she will admit the patient to the cardiac stepdown for further evaluation and management as an inpatient status. His oxygen requirements fluctuated frequently between needing 2-6 liters. Departure Impression Primary Impression: Acute hypoxemic respiratory failure Additional Impression: COVID-19 Disposition: 30 STILL A PATIENT Condition: Stable Admissions Decision to Admit Reason: Admit from ER (General) Decision to Admit/Date: May 13, 2021 Time/Decision to Admit Time: 18:50 Departure-Patient Inst. Referrals: NADEGE SANTA MD (PCP/Family) Primary Care Physician LESLY PERES MD May 13, 2021 17:23
[2021-05-13] MEDS ORDERED: ACETAMINOPHEN 325 MG TABLET PO ONE (17:30)
[2021-05-13 18:06] LABS: HEMATOCRIT 40 % (40-54); HEMOGLOBIN 14.2 g/dL (13.3-17.7); MEAN CORPUSCULAR HEMOGLOBIN 30 pg (25-34); MEAN CORPUSCULAR HGB CONC 35 g/dL (32-36); MEAN CORPUSCULAR VOLUME 85 fL (80-99); MEAN PLATELET VOLUME 10.9 fL (9.0-12.2); PLATELET COUNT 137 10^3/uL (130-400); WHITE BLOOD COUNT 5.6 10^3/uL (4.3-11.0)
[2021-05-13 18:07] LABS: BASOPHILS % (AUTO) 0 % (0-10); EOSINOPHILS % (AUTO) 0 % (0-10); LYMPHOCYTES # (AUTO) 0.7 X 10^3 (1.0-4.0); LYMPHOCYTES % (AUTO) 12 % (12-44); MONOCYTES # (AUTO) 0.5 X 10^3 (0.0-1.0); MONOCYTES % (AUTO) 8 % (0-12); NEUTROPHILS # (AUTO) 4.4 X 10^3 (1.8-7.8); NEUTROPHILS % (AUTO) 79 % (42-75)
[2021-05-13 18:14] LABS: PROTHROMBIN TIME PATIENT 13.6 SEC (12.2-14.7)
--- NOTE | 2021-05-13 18:14 | Diagnostic Imaging Report ---
INDICATION: Shortness of breath, Covid positive. COMPARISON: 08/20/2020 TECHNIQUE: Single radiograph of the chest dated 05/13/2021 FINDINGS: Loop recorder is again seen overlying the left chest. The cardiac silhouette is within normal limits in size. No significant pulmonary vascular congestion. New mixed interstitial and airspace opacities are identified within the lungs bilaterally, greatest within the left lung base. No large-volume pleural effusion. No pneumothorax. No acute osseous abnormality. IMPRESSION: New bilateral pulmonary opacities, concerning for an infectious etiology, Covid-19 could be considered. Radiographic follow-up after appropriate therapy is recommended. Dictated by: Dictated on workstation # [id number]
[2021-05-13 18:15] LABS: FIBRIN DEGRADATION PRODUCTS 0.34 UG/ML (0.00-0.49)
[2021-05-13 18:19] LABS: CARBON DIOXIDE 23 MMOL/L (21-32); CHLORIDE 93 MMOL/L (98-107); POTASSIUM 3.8 MMOL/L (3.6-5.0); SODIUM 131 MMOL/L (135-145)
[2021-05-13 18:20] LABS: ALANINE AMINOTRANSFERASE 44 U/L (0-55); ALBUMIN 3.6 GM/DL (3.2-4.5); ALKALINE PHOSPHATASE 66 U/L (40-136); BILIRUBIN,TOTAL 0.5 MG/DL (0.1-1.0); BUN/CREATININE RATIO 18; CALCIUM 8.5 MG/DL (8.5-10.1); CREATININE SERUM 1.07 MG/DL (0.60-1.30); GFR ESTIMATED 74; GLUCOSE 197 MG/DL (70-105); TOTAL PROTEIN 6.8 GM/DL (6.4-8.2)
[2021-05-13] MEDS ORDERED: ACETAMINOPHEN 325 MG TABLET PO PRN (22:45)
[2021-05-13] MEDS ORDERED: ONDANSETRON 4 MG (ZOFRAN) ORAL DISSOLVE TAB PO PRN (22:45)
[2021-05-13] MEDS ORDERED: diphenhydrAMINE 25 MG TAB (BENADRYL) PO PRN (22:45)
[2021-05-13] MEDS ORDERED: HYDROcodone/APAP 7.5 MG/325 MG (LORTAB, LORCET PLUS) TABLET PO PRN (22:45)
[2021-05-13] MEDS ORDERED: ONDANSETRON 4 MG/2 ML (SDV) Z0FRAN IV PRN (22:45)
[2021-05-13] MEDS ORDERED: NS (IVPB) 50 ML ONE (23:00)
[2021-05-13] MEDS: CEFEPIME INJECTION 1,000 MG in NS (IVPB) 50 ML IV SCH (23:12)
[2021-05-13 23:14] LABS: BASOPHILS % (AUTO) 0 % (0-10); EOSINOPHILS % (AUTO) 0 % (0-10); HEMATOCRIT 41 % (40-54); HEMOGLOBIN 13.9 g/dL (13.3-17.7); LYMPHOCYTES # (AUTO) 0.8 10^3/uL (1.0-4.0); LYMPHOCYTES % (AUTO) 14 % (12-44); MEAN CORPUSCULAR HEMOGLOBIN 29 pg (25-34); MEAN CORPUSCULAR HGB CONC 34 g/dL (32-36); MEAN CORPUSCULAR VOLUME 86 fL (80-99); MONOCYTES # (AUTO) 0.5 10^3/uL (0.0-1.0); MONOCYTES % (AUTO) 9 % (0-12); NEUTROPHILS # (AUTO) 4.4 10^3/uL (1.8-7.8); NEUTROPHILS % (AUTO) 77 % (42-75); PLATELET COUNT 135 10^3/uL (130-400); WHITE BLOOD COUNT 5.8 10^3/uL (4.3-11.0)
[2021-05-13 23:18] VITALS: BP 138/79
[2021-05-13 23:23] LABS: ALBUMIN 3.8 GM/DL (3.2-4.5); POTASSIUM 3.5 MMOL/L (3.6-5.0)
[2021-05-13 23:24] LABS: CALCIUM 8.3 MG/DL (8.5-10.1)
[2021-05-13 23:26] LABS: TOTAL PROTEIN 6.7 GM/DL (6.4-8.2)
[2021-05-13 23:27] LABS: BILIRUBIN,TOTAL 0.8 MG/DL (0.1-1.0)
[2021-05-13 23:29] LABS: CREATININE SERUM 1.09 MG/DL (0.60-1.30)
[2021-05-13] MEDS ORDERED: RT-ALBUTEROL HFA 8.5 GM INHALER IH PRN (23:30)
[2021-05-13 23:58] VITALS: BP 115/75
[2021-05-14] MEDS ORDERED: guaiFENesin SYRUP 100 MG/5 ML 10 ML (ROBITUSSIN SF) PO PRN (00:30)
[2021-05-14] MEDS: lisINopril 40 MG (PRINIVIL) TABLET PO SCH ×2 (00:39→20:51)
[2021-05-14 02:26] VITALS: BP 93/66
[2021-05-14] MEDS: CEFEPIME INJECTION 1,000 MG in NS (IVPB) 50 ML IV SCH ×3 (05:54→20:51)
[2021-05-14] MEDS: inSUlin ASPART (NovoLOG) 1 UNIT/0.01 ML (CHARGE PER UNIT) SC SCH ×4 (06:00→20:51)
[2021-05-14 07:46] VITALS: BP 103/70
[2021-05-14] MEDS: RT-ALBUTEROL HFA 8.5 GM INHALER IH SCH ×5 (07:46→21:50)
--- NOTE | 2021-05-14 08:15 | Pulmonary Consultation ---
History of Present Illness History of Present Illness Date Seen by Provider: May 14, 2021 Time Seen by Provider: 08:12 Date of Admission Per ED data processing operator: 45-year-old male with past medical history of diabetes, CAD, hypertension, hyperlipidemia, A. fib on Eliquis coming in due to being Covid positive and now being more short of breath. Began having a cough and fever on Thursday, May 07. Tested positive for Covid the next day at an urgent care. Since then has had diarrhea and continued fever every day with the cough. Began feeling short of breath today and so he presented here. Denies any chest pain, abdominal pain, current nausea, weakness, numbness, dysuria, or any other concerns. Has been taking all of his home meds as prescribed including his Eliquis and has not missed any doses. Pulmonary consult was called for COVID related hypoxemia management. Overnight patient used the BIPAP (11/02 45%) Currently O2 nc 5l; pt reports dry cough/ sob/diarrhea. Pt is very compliant with BIPAP. COVID vaccine not yet Allergies and Home Medications Allergies Coded Allergies: No Known Drug Allergies (Unverified , 07/06/16) Home Medications Amlodipine Besylate 5 Mg Tablet, 5 MG PO HS, (Reported) Apixaban 5 Mg Tablet, 5 MG PO BID Prescribed by: FRANSISCO EISENBERG on 05/24/19 1610 Aspirin 81 Mg Tablet.dr, 81 MG PO DAILY, (Reported) Atorvastatin Calcium 10 Mg Tablet, 10 MG PO HS, (Reported) LAST FILLED #90 06-10-18 Azithromycin 250 Mg Tablet, 250 MG PO DAILY Prescribed by: MIMI HARO on 08/21/20 0040 Diltiazem HCl 120 Mg Cap.er.24h, 120 MG PO DAILY Prescribed by: YULIA TO on 12/21/19 1136 Glyburide 1.25 Mg Tablet, 1.25 MG PO BID, (Reported) Lisinopril 40 Mg Tablet, 40 MG PO HS, (Reported) Metoprolol Succinate 100 Mg Tab.er.24h, 100 MG PO DAILY, (Reported) Multivitamin 1 Each Tablet, 1 TAB PO DAILY, (Reported) Past Medical/Social/Family Hx Patient Social History Tobacco Use?: Yes Tobacco type used: Cigarettes Smoking Status: Former Smoker Smokeless type used: Chew Smokeless Tobacco Frequency: Current Everyday User Use of E-Cig and/or Vaping dev: No E-Cig and/or Vaping Freq: Never a User Substance use?: No Alcohol Use?: Yes Alcohol type: Beer, Hard Liquor Alcohol Frequency: Once in a while Pt stated abuse/neglect: No Immunizations Up To Date Influenza Vaccine Up-to-Date: Yes; Up-to-Date Tetanus Booster (TDap): Unknown Hepatitis A: No Hepatitis B: No TB Skin Test: None Current Status Advance Directives: No Communicates: Verbally Primary Language: Turkmen Preferred Spoken Language: Turkmen Is interpretation needed?: No Implanted or Applied Medical D: CPAP, Stents Past Medical History htn, dm, hl, a fib sp [place] 4 years Review of Systems Constitutional: see HPI Sepsis Event Evaluation Height, Weight, BMI Height: 6'2.00" Weight: 238lbs. 0.0oz. 107.191331zv; 31.24 BMI Method:Stated Exam Exam Patient acknowledged, consented, and participated in this virtual visit which was conducted using real time audio/video Vital Signs Date Time Temp Pulse Resp B/P (MAP) Pulse Ox O2 Delivery O2 Flow Rate FiO2 05/14/21 07:46 82 19 92 45.00 05/14/21 07:00 94 05/14/21 05:56 36.1 92 97 NIV Bilevel 05/14/21 04:31 93 24 117/77 98 NIV Bilevel 05/14/21 04:30 96 Nasal Cannula 4.00 05/14/21 02:26 80 16 93 45.00 05/14/21 01:14 90 05/13/21 23:58 92 25 93 45.00 05/13/21 23:58 91 Nasal Cannula 4.00 05/13/21 23:58 38.7 NIV Bilevel 05/13/21 23:52 37.9 05/13/21 23:18 36.5 103 87 21 05/13/21 23:04 98 05/13/21 23:03 94 Nasal Cannula 4.00 05/13/21 21:45 89 18 130/89 93 Nasal Cannula 3.00 05/13/21 21:00 36.2 93 18 133/78 2 Room Air 05/13/21 17:40 38.3 05/13/21 17:00 36.5 103 18 138/79 (98) Room Air 05/13/21 17:00 Room Air I & O 05/14/21 07:00 Intake Total 150 ml Balance 150 ml Height & Weight Height: 6'2.00" Weight: 238lbs. 0.0oz. 107.317666im; 31.24 BMI Method:Stated General Appearance: No Apparent Distress HEENT: Normal ENT Inspection (grade 4 mallampathy) Respiratory: Lungs Clear Cardiovascular: Regular Rate, Rhythm Capillary Refill: Less Than 3 Seconds Gastrointestinal: normal bowel sounds, non tender, soft; No distended, No guarding, No rebound Results Lab Laboratory Tests 05/13/21 17:47 05/13/21 23:06 Assessment/Plan Assessment/Plan Acute hypoxemic resp failure in the context of COVID PNA. -steroids/ empiric abx ( trend lactic acid/ procal)/tocilizumab on board -trend D dimer -need VTE work up- ct pe protocol NO continue BIPAP dw patient in details MELISSA PERES MD May 14, 2021 08:14
[2021-05-14] MEDS ORDERED: ENOXAPARIN 40 MG/0.4 ML (LOVENOX) SYR SC SCH (09:00)
--- NOTE | 2021-05-14 09:54 | History & Physical-Hospitalist ---
History of Present Illness HPI/Chief Complaint CC: Covid-19 pneumonia with acute hypoxic respiratory failure HPI: This is a 45yoWM with a history of CAD who presented to [facility] with SOB, he was found to have Covid-19 pneumonia, he required oxygen upon admission to the ER and progressed. He now requires BiPAP so Actemera was started. Pulmonology will be consulted, they ordered a CT scan and will support Pt and I instructed him to be prone or lay on his side at the very least. Pt high risk for intubation. Source: patient Exam Limitations: clinical condition Date Seen 05/14/21 Time Seen by a Provider: 09:45 Attending Physician Jes Rashid Holly R MD Referring Physician Date of Admission May 13, 2021 at 22:29 Home Medications & Allergies Home Medications Reviewed patient Home Medication Reconciliation performed by pharmacy medication reconciliations airframe and powerplant technician and/or nursing. Patients Allergies have been reviewed. Allergies Allergies Coded Allergies No Known Drug Allergies (Unverified07/06/16) Past Jhdmsrl-Zykjwz-Xmfeld Hx Patient Social History Marrital Status: single Employed/Student: part-time employed Tobacco Use?: Yes Tobacco type used: Cigarettes Smoking Status: Former Smoker Smokeless type used: Chew Smokeless Tobacco Frequency: Current Everyday User Use of E-Cig and/or Vaping dev: No Use of E-Cig and/or Vaping Humberto: Never a User Substance use?: No Alcohol Use?: Yes Alcohol type: Beer, Hard Liquor Alcohol Frequency: Once in a while Pt feels they are or have been: No Immunizations Up To Date Date of Influenza Vaccine: Apr 12, 2021 Tetanus Booster (TDap): Unknown Hepatitis A: No Hepatitis B: No Seasonal Allergies Seasonal Allergies: No Current Status Advance Directives: No Communicates: Verbally Primary Language: Kyrgyz Preferred Spoken Language: Kyrgyz Is interpretation needed?: No Implanted or Applied Medical D: CPAP, Stents Past Medical History Surgeries: Cardiac, Coronary Stent Sleep Apnea Currently Using CPAP: Yes Currently Using BIPAP: No Atrial Fibrillation, Coronary Artery Disease, High Cholesterol, Hypertension Fractures Diabetes, Non-Insulin dep Loss of Vision: Denies Blood Disorders: No htn, dm, hl, a fib sp [place] 4 years Family Medical History Not obtainable due to adoption No Pertinent Family Hx Review of Systems Constitutional: see HPI EENTM: no symptoms reported Respiratory: dyspnea on exertion, short of breath Cardiovascular: no symptoms reported Gastrointestinal: no symptoms reported Genitourinary: no symptoms reported Musculoskeletal: no symptoms reported Skin: no symptoms reported Psychiatric/Neurological: No Symptoms Reported All Other Systems Reviewed Negative Unless Noted: Yes Physical Exam Physical Exam Vital Signs Vital Signs - First Documented 05/13/21 05/13/21 05/13/21 05/13/21 17:00 21:00 21:45 23:18 Temp 36.5 Pulse 103 Resp 18 B/P (MAP) 138/79 (98) Pulse Ox 2 O2 Delivery Room Air O2 Flow Rate 3.00 FiO2 21 Capillary Refill : Less Than 3 Seconds Height, Weight, BMI Height: 6'2.00" Weight: 238lbs. 0.0oz. 107.764782km; 31.24 BMI Method:Stated General Appearance: Anxious, Chronically ill, Mild Distress, Obese, Other (BiPAP on) Eyes: Right Eye Normal Inspection, Right Eye PERRL HEENT: PERRL/EOMI, Normal ENT Inspection, Pharynx Normal, Moist Mucous Membranes Neck: Full Range of Motion, Normal Inspection, Non Tender Respiratory: Chest Non Tender, Lungs Clear, Normal Breath Sounds, No Accessory Muscle Use, No Respiratory Distress Cardiovascular: Regular Rate, Rhythm, No Edema, No Gallop, No JVD, No Murmur, Normal Peripheral Pulses Gastrointestinal: Normal Bowel Sounds, No Organomegaly, No Pulsatile Mass, Non Tender, Soft Back: Normal Inspection, No CVA Tenderness, No Vertebral Tenderness Extremity: Normal Capillary Refill, Normal Inspection, Normal Range of Motion, Non Tender, No Calf Tenderness, No Pedal Edema Neurologic/Psychiatric: Alert, Oriented x3, No Motor/Sensory Deficits, Normal Mood/Affect Skin: Normal Color, Warm/Dry Lymphatic: No Adenopathy Results Results/Procedures Labs Laboratory Tests 05/13/21 17:47 05/13/21 23:06 Patient resulted labs reviewed. Assessment/Plan Admission Diagnosis Assessment: Acute hypoxic respiratory failure COVID-19 pneumonia History of atrial fibrillation Obesity BMI 32 Former smoker Hypertension Diabetes CAD with stents Plan: IV steroids IV antibiotics Oxygen supplementation BiPAP Actemra High risk for intubation Admission Status: Inpatient Order (span 2 midnights) Reason for Inpatient Admission: Respiratory failure Diagnosis/Problems Diagnosis/Problems (1) Acute hypoxemic respiratory failure Status: Acute (2) COVID-19 Status: Acute (3) Obstructive sleep apnea (4) CAD (coronary artery disease) (5) Stented coronary artery JES RASHID DO May 14, 2021 09:54
[2021-05-14] MEDS: APIXABAN 5 MG (ELIQUIS) TABLET PO SCH ×2 (09:59→20:51)
[2021-05-14] MEDS: dilTIAZem120 MG (CARDIZEM CD) CAP PO SCH (09:59)
[2021-05-14] MEDS: AZITHROMYCIN INJECTION 500 MG in NS (IVPB) 250 ML IV SCH (10:00)
[2021-05-14] MEDS ORDERED: TOCILIZUMAB IV NR ×3 (10:00)
[2021-05-14] MEDS ORDERED: SODIUM CHLORIDE IV NR ×3 (10:00)
[2021-05-14] MEDS ORDERED: IOHEXOL 350 MG/ML 100 ML (OMNIPAQUE 350) VIAL IV ONE (10:00)
[2021-05-14] MEDS ORDERED: NS 100 ML (IVPB) BAG IV ONE (10:00)
[2021-05-14] MEDS ORDERED: HOLD METFORMIN - RECEIVED CONTRAST 20 ML VIAL IV SCH (10:00)
[2021-05-14] MEDS ORDERED: TOCILIZUMAB INJECTION (NON-FOR 600 MG in NS (IVPB) 70 ML IV NR (10:00)
[2021-05-14 10:30] LABS: ABG BASE EXCESS 1.3 MMOL/L (-2.5-2.5); ABG OXYGEN SATURATION 69 % (94-100); ABG PCO2 39 MMHG (35-45); ABG PH 7.42 (7.37-7.43); ABG PO2 41 MMHG (79-93); ABG TCO2 26.4 MMOL/L (21.0-31.0)
[2021-05-14 10:32] LABS: ALLENS TEST YES-POS; INSPIRED O2 5L; PATIENT TEMP 37.3; VENTILATOR NO
--- NOTE | 2021-05-14 11:45 | Diagnostic Imaging Report ---
PROCEDURE: CT angiography of the chest with contrast. TECHNIQUE: Multiple contiguous axial images were obtained through the chest after uneventful bolus administration of intravenous contrast. 3D reconstructed CTA MIP acquisitions were also performed. Auto Exposure Controls were utilized during the CT exam to meet ALARA standards for radiation dose reduction. INDICATION: COVID infection with hypoxia. FINDINGS: There is good opacification of the pulmonary arteries without intraluminal filling defect. Thoracic aorta is also of normal caliber without evidence of filling defect. Patchy mixed ground-glass and alveolar densities are seen throughout both lungs. There is no significant pleural or pericardial fluid. No pathologically enlarged adenopathy is identified. Note is made of hepatic steatosis. IMPRESSION: Scattered patchy infiltrates in both lungs would be compatible with COVID infection; however, no pulmonary embolism or other great vessel abnormality is identified in the thorax. Dictated by: Dictated on workstation # [id number]
[2021-05-14 13:18] VITALS: BP 113/80
[2021-05-14] MEDS ORDERED: METF-399 PO (14:52)
[2021-05-14] MEDS ORDERED: APIX5TAB PO (14:52)
[2021-05-14] MEDS ORDERED: DILT120C53 PO (14:52)
[2021-05-14] MEDS ORDERED: AMIO200T6 PO (14:52)
[2021-05-14] MEDS ORDERED: ATOR20TA66 PO (14:52)
[2021-05-14] MEDS ORDERED: HYDR25TA4 PO (14:52)
[2021-05-15 02:13] VITALS: BP 109/70
[2021-05-15] MEDS: RT-ALBUTEROL HFA 8.5 GM INHALER IH SCH ×6 (02:13→23:23)
[2021-05-15] MEDS: CEFEPIME INJECTION 1,000 MG in NS (IVPB) 50 ML IV SCH ×4 (03:00→21:29)
[2021-05-15 05:49] LABS: BASOPHILS % (AUTO) 0 % (0-10); EOSINOPHILS % (AUTO) 0 % (0-10); HEMATOCRIT 41 % (40-54); HEMOGLOBIN 13.8 g/dL (13.3-17.7); LYMPHOCYTES # (AUTO) 0.4 10^3/uL (1.0-4.0); LYMPHOCYTES % (AUTO) 10 % (12-44); MEAN CORPUSCULAR HEMOGLOBIN 29 pg (25-34); MEAN CORPUSCULAR HGB CONC 34 g/dL (32-36); MEAN CORPUSCULAR VOLUME 86 fL (80-99); MEAN PLATELET VOLUME 10.8 fL (9.0-12.2); MONOCYTES # (AUTO) 0.3 10^3/uL (0.0-1.0); MONOCYTES % (AUTO) 7 % (0-12); NEUTROPHILS # (AUTO) 3.2 10^3/uL (1.8-7.8); NEUTROPHILS % (AUTO) 82 % (42-75); PLATELET COUNT 161 10^3/uL (130-400)
[2021-05-15 06:13] LABS: ALBUMIN 3.8 GM/DL (3.2-4.5); POTASSIUM 3.9 MMOL/L (3.6-5.0)
[2021-05-15 06:15] LABS: CALCIUM 8.5 MG/DL (8.5-10.1)
[2021-05-15 06:16] LABS: TOTAL PROTEIN 6.9 GM/DL (6.4-8.2)
[2021-05-15 06:18] LABS: BILIRUBIN,TOTAL 0.5 MG/DL (0.1-1.0)
[2021-05-15 06:20] LABS: CREATININE SERUM 1.1 MG/DL (0.60-1.30)
[2021-05-15] MEDS: inSUlin ASPART (NovoLOG) 1 UNIT/0.01 ML (CHARGE PER UNIT) SC SCH ×4 (06:23→21:32)
[2021-05-15 06:58] VITALS: BP 109/70
[2021-05-15] MEDS: AZITHROMYCIN INJECTION 500 MG in NS (IVPB) 250 ML IV SCH (08:37)
[2021-05-15] MEDS: APIXABAN 5 MG (ELIQUIS) TABLET PO SCH ×2 (08:40→21:32)
[2021-05-15] MEDS: dilTIAZem120 MG (CARDIZEM CD) CAP PO SCH (08:40)
--- NOTE | 2021-05-15 09:50 | Pulmonary Progress Note ---
Subjective Date Seen by a Provider: May 15, 2021 Time Seen by a Provider: 09:20 Subjective/Events-last exam This virtual visit was conducted using real time audio/video. Thank you for asking us to see this patient for respiratory insufficiency due to bilateral Covid pneumonia. Had Actemra. Recent events: Feels better. PE: Obese. Comfortsable. VSS. O2 sat 92% on 5 LPM NC. HEENT: No obvious masses, adenopathy or JVD. Chest: clear to auscultation. CV: RRR S1 S2 No murmur or added sounds. Abd: Non-tender. Bowel sounds Y. : Unremarkable. Rene N. SENIOR CATEGORY MANAGER/psychiatric: Grossly intact. No obvious focal findings. Extremities: No edema. Capillary refill < 3 seconds. Skin: unremarkable. Results: Elevated BG 319, D-Dimer 0.43. Decreased Na 133, WCC 4.0. B.42/39/41 on 5 LPM. CXR: B opacities. CTC: No PE. Available chart/ vitals / labs / images reviewed. Video assessment done using teleICU camera, rest of exam as per RN. A/P: Respiratory insufficiency: Continue present management with Albuterol, Dex. , AZT, Cefipime. Monitor for increasing oxygenation needs and/or need for ICU transfer. Critical Care: critically ill patient. Cont. Eliquis, SSI, Nocturnal BiPAP. Discussed with RN Kaylah. Asked RN to reach out to eICU if any questions or concerns later. Time spent with patient/coordination of care with other health professionals (mins): 25 Sepsis Event Evaluation Height, Weight, BMI Height: 6'2.00" Weight: 238lbs. 0.0oz. 107.965449lu; 31.24 BMI Method:Stated Focused Exam Lactate Level 05/13/21 17:52: Lactic Acid Level 1.31 Exam Exam Patient acknowledged, consented, and participated in this virtual visit which was conducted using real time audio/video Vital Signs Date Time Temp Pulse Resp B/P (MAP) Pulse Ox O2 Delivery O2 Flow Rate FiO2 05/15/21 08:48 93 Nasal Cannula 5.00 05/15/21 07:00 78 05/15/21 06:58 78 17 95 45.00 05/15/21 04:00 36.0 71 15 112/69 98 NIV CPAP 05/15/21 02:13 73 20 92 45.00 05/15/21 01:00 85 05/15/21 00:00 36.6 95 13 109/70 100 NIV CPAP 05/14/21 21:50 93 Nasal Cannula 5.00 05/14/21 21:00 96 Nasal Cannula 5.00 05/14/21 20:00 36.7 93 22 115/78 95 05/14/21 19:00 103 05/14/21 18:48 93 Nasal Cannula 5.00 05/14/21 15:34 95 Nasal Cannula 5.00 05/14/21 15:30 36.4 96 24 116/75 94 Nasal Cannula 05/14/21 13:18 37.8 103 94 40 05/14/21 12:19 103 05/14/21 11:35 Nasal Cannula 5.00 05/14/21 11:31 94 Nasal Cannula 6.00 05/14/21 11:16 37.8 106 20 113/80 95 I & O 05/15/21 07:00 Intake Total 1505.6 ml Balance 1505.6 ml Height & Weight Height: 6'2.00" Weight: 238lbs. 0.0oz. 107.542029nw; 31.24 BMI Method:Stated General Appearance: No Apparent Distress (See free text), Anxious, Chronically ill, Mild Distress, Obese, Other (BiPAP on) HEENT: PERRL/EOMI, Normal ENT Inspection, Pharynx Normal, Moist Mucous Membranes Neck: Full Range of Motion, Normal Inspection, Non Tender Respiratory: Chest Non Tender, Lungs Clear, Normal Breath Sounds, No Accessory Muscle Use, No Respiratory Distress Cardiovascular: Regular Rate, Rhythm, No Edema, No Gallop, No JVD, No Murmur, Normal Peripheral Pulses Capillary Refill: Less Than 3 Seconds Peripheral Pulses: 2+ Dorsalis Pedis (R), 2+ Left Dors-Pedis (L) Gastrointestinal: normal bowel sounds, non tender, soft; No distended, No guarding, No rebound Extremity: Normal Capillary Refill, Normal Inspection, Normal Range of Motion, Non Tender, No Calf Tenderness, No Pedal Edema Neurologic/Psychiatric: Alert, Oriented x3, No Motor/Sensory Deficits, Normal Mood/Affect Skin: Normal Color, Warm/Dry Lymphatic: No Adenopathy Results Lab Laboratory Tests 05/13/21 17:47 05/13/21 23:06 05/15/21 05:35 Assessment/Plan Assessment/Plan See free text Critical Care: Critically Ill Patient SERGE HEARD MD May 15, 2021 09:50
--- NOTE | 2021-05-15 10:15 | Progress Note - Hospitalist ---
Subjective HPI/CC On Admission Date Seen by Provider: May 15, 2021 Time Seen by Provider: 10:30 CC: Covid-19 pneumonia with acute hypoxic respiratory failure HPI: This is a 45yoWM with a history of CAD who presented to [place] ER with SOB, he was found to have Covid-19 pneumonia, he required oxygen upon admission to the ER and progressed. He now requires BiPAP so Actemera was started. Pulmonology will be consulted, they ordered a CT scan and will support Pt and I instructed him to be prone or lay on his side at the very least. Pt high risk for intubation. Subjective/Events-last exam Pt dramatically improved Actemra has really helped him Five liters of oxygen now Off BiPAP currently Bowels are moving Eating and drinking well Review of Systems General: Fatigue Pulmonary: Dyspnea, Cough Focused Exam Lactate Level 05/13/21 17:52: Lactic Acid Level 1.31 Objective Exam Vital Signs Vital Signs Date Time Temp Pulse Resp B/P (MAP) Pulse Ox O2 Delivery O2 Flow Rate FiO2 05/16/21 03:29 36.5 86 12 118/65 95 NIV CPAP 30.00 05/16/21 02:48 30 Capillary Refill : Less Than 3 Seconds General Appearance: No Apparent Distress, WD/WN, Anxious, Chronically ill, Obese Respiratory: No Accessory Muscle Use, No Respiratory Distress, Decreased Breath Sounds Cardiovascular: Regular Rate, Rhythm Neurologic/Psychiatric: Alert, Oriented x3, No Motor/Sensory Deficits, Normal Mood/Affect Results/Procedures Lab Laboratory Tests 05/15/21 05:35 Patient resulted labs reviewed. Assessment/Plan Assessment and Plan Assess & Plan/Chief Complaint Assessment: Acute hypoxic respiratory failure COVID-19 pneumonia History of atrial fibrillation Obesity BMI 32 Former smoker Hypertension Diabetes CAD with stents Plan: IV steroids IV antibiotics Oxygen supplementation BiPAP Actemra High risk for intubation 05/15/2021: Dramatic improvement Monitor closely Critical Care Critically Ill Patient Diagnosis/Problems Diagnosis/Problems (1) Acute hypoxemic respiratory failure Status: Acute (2) COVID-19 Status: Acute (3) Obstructive sleep apnea (4) CAD (coronary artery disease) (5) Stented coronary artery KENDY TORREZ DO May 15, 2021 10:15
[2021-05-15] MEDS: lisINopril 40 MG (PRINIVIL) TABLET PO SCH (21:32)
[2021-05-15 23:24] VITALS: BP 131/84
[2021-05-16] MEDS: RT-ALBUTEROL HFA 8.5 GM INHALER IH SCH ×4 (02:47→14:18)
[2021-05-16 02:49] VITALS: BP 124/81
[2021-05-16] MEDS: CEFEPIME INJECTION 1,000 MG in NS (IVPB) 50 ML IV SCH ×3 (03:25→15:40)
[2021-05-16 06:33] LABS: BASOPHILS % (AUTO) 0 % (0-10); EOSINOPHILS % (AUTO) 0 % (0-10); HEMATOCRIT 39 % (40-54); HEMOGLOBIN 13.4 g/dL (13.3-17.7); LYMPHOCYTES # (AUTO) 0.4 10^3/uL (1.0-4.0); LYMPHOCYTES % (AUTO) 6 % (12-44); MEAN CORPUSCULAR HEMOGLOBIN 30 pg (25-34); MEAN CORPUSCULAR HGB CONC 34 g/dL (32-36); MEAN CORPUSCULAR VOLUME 87 fL (80-99); MONOCYTES # (AUTO) 0.4 10^3/uL (0.0-1.0); MONOCYTES % (AUTO) 6 % (0-12); NEUTROPHILS # (AUTO) 5.9 10^3/uL (1.8-7.8); NEUTROPHILS % (AUTO) 88 % (42-75); PLATELET COUNT 186 10^3/uL (130-400); WHITE BLOOD COUNT 6.7 10^3/uL (4.3-11.0)
--- NOTE | 2021-05-16 06:41 | Diagnostic Imaging Report ---
Indication: Atrial fibrillation. COMPARISON: 05/13/2021 FINDINGS: 2 frontal radiograph views of the chest were obtained and demonstrate scattered coarse interstitial infiltrate. Left lung appears slightly improved when compared to prior exam. There is no large effusion or pneumothorax. Cardiac silhouette and pulmonary vasculature are within normal limits. Osseous structures show no new acute abnormalities. IMPRESSION: 1. Persistent, but perhaps slightly improved diffuse coarse interstitial infiltrate. Dictated by: Dictated on workstation # [id number]
[2021-05-16 06:51] VITALS: BP 124/81
[2021-05-16 06:55] LABS: BAND NEUTROPHILS 3 %; LYMPHOCYTES % (MANUAL) 5 %; MICROCYTOSIS SLIGHT; MONOCYTES % (MANUAL) 5 %; NEUTROPHILS % (MANUAL) 87 %
[2021-05-16 06:58] LABS: ALBUMIN 3.5 GM/DL (3.2-4.5); BILIRUBIN,TOTAL 0.5 MG/DL (0.1-1.0); CALCIUM 8.4 MG/DL (8.5-10.1); CREATININE SERUM 0.99 MG/DL (0.60-1.30); POTASSIUM 4.1 MMOL/L (3.6-5.0); TOTAL PROTEIN 6.5 GM/DL (6.4-8.2)
[2021-05-16] MEDS: inSUlin ASPART (NovoLOG) 1 UNIT/0.01 ML (CHARGE PER UNIT) SC SCH ×2 (07:05→11:28)
[2021-05-16] MEDS: AZITHROMYCIN INJECTION 500 MG in NS (IVPB) 250 ML IV SCH (08:57)
[2021-05-16] MEDS: dilTIAZem120 MG (CARDIZEM CD) CAP PO SCH (08:57)
[2021-05-16] MEDS: APIXABAN 5 MG (ELIQUIS) TABLET PO SCH (08:57)
--- NOTE | 2021-05-16 10:32 | Pulmonary Progress Note ---
Subjective Date Seen by a Provider: May 16, 2021 Time Seen by a Provider: 10:28 Subjective/Events-last exam Pt with no major events overnight. Initially admitted for worsening SOB/acute hypoxic respiratory failure requiring continuous BiPAP) in setting of COVID pneumonia.CXR this morning shows persistent, but perhaps slightly improved diffuse coarse interstitial infiltrates. Currently on Tocalziumab and Dexamethasone. Awaiting inflammatory markers. Sepsis Event Evaluation Height, Weight, BMI Height: 6'2.00" Weight: 238lbs. 0.0oz. 107.615078yx; 31.24 BMI Method:Stated Focused Exam Lactate Level 05/13/21 17:52: Lactic Acid Level 1.31 Exam Exam Patient acknowledged, consented, and participated in this virtual visit which was conducted using real time audio/video Vital Signs Date Time Temp Pulse Resp B/P (MAP) Pulse Ox O2 Delivery O2 Flow Rate FiO2 05/16/21 10:23 94 Nasal Cannula 2.00 05/16/21 09:30 Nasal Cannula 2.00 05/16/21 08:30 95 Nasal Cannula 2.00 05/16/21 08:00 35.9 90 13 116/77 97 Nasal Cannula 05/16/21 07:00 85 05/16/21 06:51 86 20 98 30.00 05/16/21 03:29 36.5 86 12 118/65 95 NIV CPAP 30.00 05/16/21 02:49 87 22 97 30.00 05/16/21 02:48 97 NIV Bilevel 30 05/16/21 01:00 89 05/16/21 00:00 36.3 95 21 124/81 91 NIV CPAP 30.00 05/15/21 23:24 93 21 96 35.00 05/15/21 23:23 97 Nasal Cannula 5.00 05/15/21 21:00 94 Nasal Cannula 5.00 05/15/21 19:40 36.6 105 22 131/84 92 Nasal Cannula 5.00 05/15/21 19:00 105 05/15/21 18:43 96 Nasal Cannula 5.00 05/15/21 17:31 24 131/91 95 Nasal Cannula 5.00 05/15/21 15:16 95 Nasal Cannula 5.00 05/15/21 12:31 93 05/15/21 12:06 36.1 93 19 109/70 90 05/15/21 10:33 88 Nasal Cannula 5.00 I & O 05/16/21 07:00 Intake Total 1550 ml Balance 1550 ml Height & Weight Height: 6'2.00" Weight: 238lbs. 0.0oz. 107.506360uj; 31.24 BMI Method:Stated General Appearance: No Apparent Distress, WD/WN, Anxious, Chronically ill, Obese HEENT: PERRL/EOMI, Normal ENT Inspection, Pharynx Normal, Moist Mucous Membranes Neck: Full Range of Motion, Normal Inspection, Non Tender Respiratory: No Accessory Muscle Use, No Respiratory Distress, Decreased Breath Sounds Cardiovascular: Regular Rate, Rhythm Capillary Refill: Less Than 3 Seconds Peripheral Pulses: 2+ Dorsalis Pedis (R), 2+ Left Dors-Pedis (L) Gastrointestinal: normal bowel sounds, non tender, soft; No distended, No guarding, No rebound Extremity: Normal Capillary Refill, Normal Inspection, Normal Range of Motion, Non Tender, No Calf Tenderness, No Pedal Edema Neurologic/Psychiatric: Alert, Oriented x3, No Motor/Sensory Deficits, Normal Mood/Affect Skin: Normal Color, Warm/Dry Lymphatic: No Adenopathy Results Lab Laboratory Tests 05/15/21 05:35 05/16/21 06:[address] angio: Date of Exam:05/14/21 CT ANGIO CHEST W PROCEDURE: CT angiography of the chest with contrast. TECHNIQUE: Multiple contiguous axial images were obtained through the chest after uneventful bolus administration of intravenous contrast. 3D reconstructed CTA MIP acquisitions were also performed. Auto Exposure Controls were utilized during the CT exam to meet ALARA standards for radiation dose reduction. INDICATION: COVID infection with hypoxia. FINDINGS: There is good opacification of the pulmonary arteries without intraluminal filling defect. Thoracic aorta is also of normal caliber without evidence of filling defect. Patchy mixed ground-glass and alveolar densities are seen throughout both lungs. There is no significant pleural or pericardial fluid. No pathologically enlarged adenopathy is identified. Note is made of hepatic steatosis. IMPRESSION: Scattered patchy infiltrates in both lungs would be compatible with COVID infection; however, no pulmonary embolism or other great vessel abnormality is identified in the thorax. CXR 05/16: 1. Persistent, but perhaps slightly improved diffuse coarse interstitial infiltrate. Assessment/Plan Assessment/Plan Pt is a 45 y/o M with PMHx signficant for DM, CAD, HTN, HLD, Afib on Eliquis, presented with SOB and initially admitted to MICU for acute hypoxic respiratory failure in setting of COVID pneumonia (unvaccinated). Positive for Covid Nov 9. Previously requiring BIPAP 16/8 @ 45% however per nursing this morning lowered to 2LNC and maintaining sats > 96%. Of note patient weight slightly elevated since admission. COVID therapies include Tocalizumab and Dexamethasone. Pt also currently on Cefepime and Azithromycin for concomitant CAP. -At this time will cont to wean oxygen and await cultures/inflammatory markers. Cont antibiotics -Cont dexa/tocalizumab KENYATTA JEFFERSON MD May 16, 2021 10:32
--- NOTE | 2021-05-16 11:31 | Progress Note - Hospitalist ---
Subjective HPI/CC On Admission Date Seen by Provider: May 16, 2021 Time Seen by Provider: 11:00 CC: Covid-19 pneumonia with acute hypoxic respiratory failure HPI: This is a 45yoWM with a history of CAD who presented to [place] ER with SOB, he was found to have Covid-19 pneumonia, he required oxygen upon admission to the ER and progressed. He now requires BiPAP so Actemera was started. Pulmonology will be consulted, they ordered a CT scan and will support Pt and I instructed him to be prone or lay on his side at the very least. Pt high risk for intubation. Subjective/Events-last exam Patient doing well No longer on oxygen Discharge is planned Focused Exam Lactate Level Objective Exam Vital Signs Vital Signs Date Time Temp Pulse Resp B/P (MAP) Pulse Ox O2 Delivery O2 Flow Rate FiO2 05/16/21 16:25 05/16/21 16:00 36.6 05/16/21 14:18 95 Nasal Cannula 2.00 05/16/21 13:00 98 05/16/21 12:00 14 05/16/21 02:48 30 Capillary Refill : Less Than 3 Seconds General Appearance: No Apparent Distress, WD/WN, Chronically ill Results/Procedures Lab Laboratory Tests 05/16/21 06:11 Patient resulted labs reviewed. Assessment/Plan Assessment and Plan Assess & Plan/Chief Complaint Assessment: Acute hypoxic respiratory failure COVID-19 pneumonia History of atrial fibrillation Obesity BMI 32 Former smoker Hypertension Diabetes CAD with stents Plan: IV steroids IV antibiotics Oxygen supplementation BiPAP Actemra High risk for intubation 05/15/2021: Dramatic improvement Monitor closely 05/16/2021: Discharge planned Critical Care Critically Ill Patient Diagnosis/Problems Diagnosis/Problems (1) Acute hypoxemic respiratory failure Status: Acute (2) COVID-19 Status: Acute (3) Obstructive sleep apnea (4) CAD (coronary artery disease) (5) Stented coronary artery KENDY TORREZ DO May 16, 2021 11:31
[2021-05-16] MEDS ORDERED: glipiZIDE 5 MG (GLUCOTROL) TAB PO ONE (11:45)
[2021-05-16] MEDS ORDERED: DEXA6TAB6 PO (12:29)
[2021-05-16] MEDS ORDERED: GLIP5TAB13 PO (12:29)
[2021-05-16] MEDS ORDERED: CEFD300C3 PO (12:29)
--- NOTE | 2021-05-16 12:30 | Discharge Summary ---
Discharge Summary Hospital Course Was the Problem List Reviewed?: Yes Problems/Dx: (1) Acute hypoxemic respiratory failure Status: Acute (2) COVID-19 Status: Acute (3) Obstructive sleep apnea (4) CAD (coronary artery disease) (5) Stented coronary artery Hospital Course Date of Admission: May 13, 2021 at 22:29 Admission Diagnosis : Family Physician/Provider: Ashley Al MD Date of Discharge: 05/16/21 Discharge Diagnosis: Acute hypoxic respiratory failure due to COVID-19 pneumonia, atrial fibrillation, CAD Hospital Course: Standard hospital course for COVID-19 pneumonia. Patient required BiPAP due to progression patient was a candidate for Actemra. He dramatically improved was able to wean off completely off oxygen and was deemed stable for discharge. Labs and Pending Lab Test: Laboratory Tests 05/15/21 15:39: Glucometer 335H 05/15/21 20:01: Glucometer 385H 05/16/21 06:11: White Blood Count 6.7, Red Blood Count 4.48, Hemoglobin 13.4, Hematocrit 39L, Mean Corpuscular Volume 87, Mean Corpuscular Hemoglobin 30, Mean Corpuscular Hemoglobin Concent 34, Red Cell Distribution Width 12.4, Platelet Count 186, Mean Platelet Volume 11.0, Immature Granulocyte % (Auto) 1, Neutrophils (%) (Auto) 88H, Lymphocytes (%) (Auto) 6L, Monocytes (%) (Auto) 6, Eosinophils (%) (Auto) 0, Basophils (%) (Auto) 0, Neutrophils # (Auto) 5.9, Lymphocytes # (Auto) 0.4L, Monocytes # (Auto) 0.4, Eosinophils # (Auto) 0.0, Basophils # (Auto) 0.0, Immature Granulocyte # (Auto) 0.0, Neutrophils % (Manual) 87, Lymphocytes % (Manual) 5, Monocytes % (Manual) 5, Band Neutrophils 3, Microcytosis SLIGHT, Sodium Level 133L, Potassium Level 4.1, Chloride Level 102, Carbon Dioxide Level 18L, Anion Gap 13, Blood Urea Nitrogen 21H, Creatinine 0.99, Estimat Glomerular Filtration Rate 81, BUN/Creatinine Ratio 21, Glucose Level 293H, Calcium Level 8.4L, Corrected Calcium 8.8, Total Bilirubin 0.5, Aspartate Amino Transf (AST/SGOT) 25, Alanine Aminotransferase (ALT/SGPT) 47, Alkaline Phosphatase 55, Total Protein 6.5, Albumin 3.5 05/16/21 11:08: Glucometer 292H Home Meds Active Decadron (Dexamethasone) 6 Mg Tablet 6 Mg PO DAILY Cefdinir 300 Mg Capsule 300 Mg PO BID Glipizide 5 Mg Tablet 5 Mg PO DAILY@0630 Reported Cartia Xt (Diltiazem HCl) 120 Mg Cap.er.24h 120 Mg PO 1900 Eliquis (Apixaban) 5 Mg Tablet 5 Mg PO BID Amiodarone HCl 200 Mg Tablet 200 Mg PO DAILY Atorvastatin Calcium 20 Mg Tablet 20 Mg PO HS Metformin HCl 1,000 Mg Tablet 1,000 Mg PO BID Hydrochlorothiazide 25 Mg Tablet 25 Mg PO DAILY Multivitamins (Multivitamin) 1 Each Tablet 1 Tab PO DAILY Metoprolol Succinate 100 Mg Tab.er.24h 100 Mg PO DAILY Lisinopril 40 Mg Tablet 40 Mg PO 1900 Aspirin EC (Aspirin) 81 Mg Tablet.dr 81 Mg PO DAILY Glyburide 1.25 Mg Tablet 1.25 Mg PO BID Assessment/Pt Instructions PCP in 1 week Discharge Planning: <30 minutes discharge planning Discharge Instructions Discharge Diet: ADA Diet Discharge Physical Examination Vital Signs Vital Signs Date Time Temp Pulse Resp B/P (MAP) Pulse Ox O2 Delivery O2 Flow Rate FiO2 05/16/21 12:00 36.7 96 14 141/89 93 Nasal Cannula 05/16/21 10:23 2.00 05/16/21 02:48 30 General Appearance: No Apparent Distress, WD/WN, Chronically ill, Obese Respiratory: Lungs Clear, Normal Breath Sounds Allergies: Coded Allergies: No Known Drug Allergies (Unverified , 07/06/16) Discharge Summary Date of Admission May 13, 2021 at 22:29 Date of Discharge Discharge Date: May 16, 2021 Admission Diagnosis Assessment: Acute hypoxic respiratory failure COVID-19 pneumonia History of atrial fibrillation Obesity BMI 32 Former smoker Hypertension Diabetes CAD with stents Plan: IV steroids IV antibiotics Oxygen supplementation BiPAP Actemra High risk for intubation Discharge Diagnosis Assessment: Acute hypoxic respiratory failure COVID-19 pneumonia History of atrial fibrillation Obesity BMI 32 Former smoker Hypertension Diabetes CAD with stents Plan: IV steroids IV antibiotics Oxygen supplementation BiPAP Actemra High risk for intubation 05/15/2021: Dramatic improvement Monitor closely (1) Acute hypoxemic respiratory failure Status: Acute (2) COVID-19 Status: Acute (3) Obstructive sleep apnea (4) CAD (coronary artery disease) (5) Stented coronary artery KENDY TORREZ DO May 16, 2021 12:30
[2021-05-16] MEDS ORDERED: lisINopril 40 MG (PRINIVIL) TABLET PO SCH (19:00)
[2021-05-16] MEDS ORDERED: dilTIAZem120 MG (CARDIZEM CD) CAP PO SCH (19:00)
[2021-05-16] MEDS ORDERED: APIXABAN 5 MG (ELIQUIS) TABLET PO SCH (21:00)
[2021-05-16] MEDS ORDERED: metFORMIN 500 MG (GLUCOPHAGE) TAB PO SCH (21:00)
[2021-05-17] MEDS ORDERED: glipiZIDE 5 MG (GLUCOTROL) TAB PO SCH (06:30)
[2021-05-17] MEDS ORDERED: MULTIVIT W/MINERALS TAB (THERAGRAN M) PO SCH (09:00)
[2021-05-17] MEDS ORDERED: meTOprolol SUCCINATE 100 MG (TOPROL XL) TAB PO SCH (09:00)
[2021-05-17] MEDS ORDERED: AMIODARONE 200 MG (CORDARONE) TAB PO SCH (09:00)
[2021-05-17] MEDS ORDERED: ASPIRIN E.C. 81 MG (ECOTRIN) TAB PO SCH (09:00)
== END 2021-05-16 16:25 | disposition home or self-care (01) | DRG 177 ==
LOC: EDUNIT# 16:57 → ER FS 16:58 → CSD 22:29
PROVIDERS: ADMIT Internal Medicine; ATTEND Internal Medicine
PROC: 5A09357 Assistance with Respiratory Ventilation, Less than 24 Consecutive Hours, Continuous Positive Airway Pressure (ICD-10-PCS; principal; 2021-05-13)
DX: U07.1 COVID-19 (principal); J12.82 Pneumonia due to coronavirus disease 2019; J96.01 Acute respiratory failure with hypoxia; E11.9 Type 2 diabetes mellitus without complications; I25.10 Atherosclerotic heart disease of native coronary artery without angina pectoris; I10 Essential (primary) hypertension; E78.5 Hyperlipidemia, unspecified; I48.91 Unspecified atrial fibrillation; G47.33 Obstructive sleep apnea (adult) (pediatric); E78.00 Pure hypercholesterolemia, unspecified; F17.220 Nicotine dependence, chewing tobacco, uncomplicated; E66.9 Obesity, unspecified; Z68.32 Body mass index [BMI] 32.0-32.9, adult; Z79.01 Long term (current) use of anticoagulants; Z79.84 Long term (current) use of oral hypoglycemic drugs; Z79.82 Long term (current) use of aspirin; Z73.0 Burn-out
CPT/HCPCS: 36415; 71045; 71275; 80053; 82728; 82805; 82947; 83605; 83615; 84145; 84484; 85007; 85025; 85027; 85379; 85384; 85610; 85730; 86141; 93005; 93041; 94640; 94660; 94760; 94761

== ENCOUNTER 2021-05-19 21:01 | Emergency (ER) | payer OTHER ==
[~2021-05-19] VITALS: Ht 185.4 cm; Wt 116.0 kg
[~2021-05-19 21:01] MED LIST changes: +AMIO200T6 PO; +ATOR20TA66 PO; +CEFD300C3 PO; +DEXA6TAB6 PO; +DILT120C53 PO; +GLIP5TAB13 PO; +HYDR25TA4 PO; +METF-399 PO
[2021-05-19 21:05] VITALS: BP 136/92
[2021-05-19] MEDS ORDERED: inSUlin (REGULAR) HUMAN 1 UNIT/0.01 ML (CHARGE PER UNIT) SC ONE (21:15)
--- NOTE | 2021-05-19 21:19 | ED General ---
General Chief Complaint: Glucose Problems Stated Complaint: HIGH BLOOD SUGAR Source of Information: Patient Exam Limitations: No Limitations History of Present Illness Date Seen by Provider: May 19, 2021 Time Seen by Provider: 21:06 Initial Comments 45-year-old male with past medical history of type 2 diabetes and recent discharge from the hospital due to respiratory failure from COVID-19 coming in due to elevated glucose. He says he was discharged on . He is still taking steroids per the protocol for his Covid pneumonia. Tomorrow is his last day of the Decadron. His glucose was around 500 today and he has never really been that high before so he came into the emergency department. Other than urinating slightly more than usual, he denies any other symptoms. He is drinking plenty of fluids. He takes Metformin, glyburide, and one other medication, but does not have any insulin at home for any type of sliding scale. He is otherwise denying any other acute complaints. Allergies and Home Medications Allergies Coded Allergies: No Known Drug Allergies (Unverified , 07/06/16) Patient Home Medication List Home Medication List Reviewed: Yes Amiodarone HCl (Amiodarone HCl) 200 Mg Tablet, 200 MG PO DAILY, (Reported) Entered as Reported by: YANIV CALIX on 05/14/21 1452 Apixaban (Eliquis) 5 Mg Tablet, 5 MG PO BID, (Reported) Entered as Reported by: YANIV CALIX on 05/14/21 1452 Aspirin (Aspirin EC) 81 Mg Tablet.dr, 81 MG PO DAILY, (Reported) Entered as Reported by: JERRI ROSAS on 09/15/17 0934 Atorvastatin Calcium (Atorvastatin Calcium) 20 Mg Tablet, 20 MG PO HS, (Reported) Entered as Reported by: YANIV CALIX on 05/14/21 1452 Cefdinir (Cefdinir) 300 Mg Capsule, 300 MG PO BID Prescribed by: KENDY TORREZ on 05/16/21 1229 Dexamethasone (Decadron) 6 Mg Tablet, 6 MG PO DAILY Prescribed by: KENDY TORREZ on 05/16/21 1229 Diltiazem HCl (Cartia Xt) 120 Mg Cap.er.24h, 120 MG PO 1900, (Reported) Entered as Reported by: YANIV CALIX on 05/14/21 1452 Glipizide (Glipizide) 5 Mg Tablet, 5 MG PO DAILY@0630 Prescribed by: KENDY TORREZ on 05/16/21 1229 Glyburide (Glyburide) 1.25 Mg Tablet, 1.25 MG PO BID, (Reported) Entered as Reported by: JERRI ROSAS on 09/15/17 0934 Hydrochlorothiazide (Hydrochlorothiazide) 25 Mg Tablet, 25 MG PO DAILY, (Reported) Entered as Reported by: YANIV CALIX on 05/14/21 1452 Lisinopril (Lisinopril) 40 Mg Tablet, 40 MG PO 1900, (Reported) Entered as Reported by: JERRI ROSAS on 05/23/19 0948 Metformin HCl (Metformin HCl) 1,000 Mg Tablet, 1,000 MG PO BID, (Reported) Entered as Reported by: YANIV CALIX on 05/14/21 1452 Metoprolol Succinate (Metoprolol Succinate) 100 Mg Tab.er.24h, 100 MG PO DAILY, (Reported) Entered as Reported by: JERRI ROSAS on 05/23/19 0948 Multivitamin (Multivitamins) 1 Each Tablet, 1 TAB PO DAILY, (Reported) Entered as Reported by: JERRI ROSAS on 05/23/19 0948 Discontinued Medications Amlodipine Besylate (Amlodipine Besylate) 5 Mg Tablet, 5 MG PO HS, (Reported) Discontinued Reason: No Longer Taking Entered as Reported by: JERRI ROSAS on 05/23/19 0948 Apixaban (Eliquis) 5 Mg Tablet, 5 MG PO BID Discontinued Reason: No Longer Taking Prescribed by: FARNSISCO EISENBERG on 05/24/19 1610 Atorvastatin Calcium (Atorvastatin Calcium) 10 Mg Tablet, 10 MG PO HS, (Reported) Discontinued Reason: No Longer Taking Entered as Reported by: JERRI ROSAS on 09/15/17 0934 Azithromycin (Azithromycin) 250 Mg Tablet, 250 MG PO DAILY Discontinued Reason: Duplicate Order Prescribed by: MIMI HARO on 08/21/20 0040 Diltiazem HCl (Cardizem Cd) 120 Mg Cap.er.24h, 120 MG PO DAILY Discontinued Reason: No Longer Taking Prescribed by: YULIA TO on 12/21/19 1136 Review of Systems Review of Systems Constitutional: No chills EENTM: no symptoms reported Respiratory: no symptoms reported Cardiovascular: no symptoms reported Gastrointestinal: no symptoms reported Genitourinary: no symptoms reported Musculoskeletal: no symptoms reported Skin: no symptoms reported Psychiatric/Neurological: No Symptoms Reported Hematologic/Lymphatic: No Symptoms Reported Immunological/Allergic: no symptoms reported All Other Systems Reviewed Negative Unless Noted: Yes Past Dirruub-Qxqoxz-Efgkov Hx Patient Social History Tobacco Use?: No Substance use?: No Alcohol Use?: No Pt feels they are or have been: No Immunizations Up To Date Tetanus Booster (TDap): Unknown Seasonal Allergies Seasonal Allergies: No Past Medical History Surgery/Hospitalization HX: Cath with 1 stent placed 2016April 2019 loop recorder for A-fib Surgeries: Yes (CARDIAC CATH--STENT X 1) Cardiac, Coronary Stent Respiratory: No Sleep Apnea Currently Using CPAP: Yes Currently Using BIPAP: No Cardiac: Yes (CARDIAC STENT X1) Atrial Fibrillation, Coronary Artery Disease, High Cholesterol, Hypertension Neurological: No Reproductive Disorders: No Genitourinary: No Gastrointestinal: No Musculoskeletal: Yes Fractures Endocrine: Yes Diabetes, Non-Insulin dep HEENT: No Loss of Vision: Denies Cancer: No Psychosocial: No Integumentary: No Blood Disorders: No Family Medical History Not obtainable due to adoption No Pertinent Family Hx Physical Exam Vital Signs Vital Signs - First Documented 05/19/21 21:05 Temp 36.5 Pulse 101 Resp 16 B/P (MAP) 136/92 (107) Pulse Ox 96 O2 Delivery Room Air Capillary Refill : Height, Weight, BMI Height: 6'2.00" Weight: 238lbs. 0.0oz. [id number]; 31.24 BMI Method:Stated General Appearance: No Apparent Distress, WD/WN Eyes: Bilateral Eye Normal Inspection HEENT: PERRL/EOMI, Normal ENT Inspection, Pharynx Normal Neck: Full Range of Motion, Normal Inspection, Non Tender, Supple Respiratory: Chest Non Tender, Lungs Clear, Normal Breath Sounds, No Accessory Muscle Use, No Respiratory Distress Cardiovascular: Regular Rate, Rhythm, No Edema, Normal Peripheral Pulses Gastrointestinal: Normal Bowel Sounds, Non Tender, Soft; No Distended, No Guarding Back: Normal Inspection Extremity: Normal Capillary Refill, Normal Inspection, Normal Range of Motion, Non Tender, No Calf Tenderness, No Pedal Edema Neurologic/Psychiatric: Alert, No Motor/Sensory Deficits, Normal Mood/Affect Skin: Normal Color, Warm/Dry Lymphatic: No Adenopathy Progress/Results/Core Measures Suspected Sepsis SIRS Temperature: Pulse: Respiratory Rate: Blood Pressure / Mean: Results/Orders Lab Results Laboratory Tests Test 05/19/21 21:07 Range/Units Glucometer 418 *H 70-110 MG/DL My Orders Orders - LESLY EPRES MD Insulin (Regular) Human (Novolin R (Per (05/19/21 21:15) Medications Given in ED Current Medications Medications Dose Ordered Sig/Cayden Route Start Time Stop Time Status Last Admin Dose Admin Insulin Human Regular 10 unit ONCE ONCE SC 05/19/21 21:15 05/19/21 21:16 DC 05/19/21 21:20 10 UNIT Vital Signs/I&O 05/19/21 21:05 Temp 36.5 Pulse 101 Resp 16 B/P (MAP) 136/92 (107) Pulse Ox 96 O2 Delivery Room Air Capillary Refill : Progress Note : Progress Note 45-year-old male with above history coming in due to hyperglycemia. ABCs were intact and vitals were stable on presentation. This is secondary to his glucocorticoid use which tomorrow will be his last day. I recommended he drink plenty of fluids, we will give him a subcu dose of insulin here, and recommend he call his PCP tomorrow to decide if he really needs the next dose of steroids given he has completely resolved his symptoms from COVID-19. He has a type II diabetic, and clinically does not have any other signs and symptoms of DKA. Glucose here is in the 400s. Repeat is lower after give him insulin. He is tolerating p.o. I believe he is stable for discharge with outpatient follow-up. He was sent home with strict return precautions Departure Impression Primary Impression: Hyperglycemia Disposition: HOME, SELF-CARE Condition: Improved Departure-Patient Inst. Decision time for Depature: 22:00 Referrals: NADEGE SANTA MD (PCP/Family) Primary Care Physician Patient Instructions: High Blood Sugar, Adult ED Add. Discharge Instructions: Please call Dr. Santa's office and see if you do not need to take the steroid tomorrow. If you do end up taking it, your glucose will continue to be elevated for at least a couple more days. Dr. Santa may want to start you on a sliding scale insulin if that is the case. Otherwise drink plenty of fluids and take all of your medications as prescribed. Try to avoid carbs/sugars for the next couple days to also help control your glucose. LESLY PERES MD May 19, 2021 21:19
== END 2021-05-19 21:58 | disposition home or self-care (01) ==
LOC: EDUNIT# 21:01 → ER FS 21:04
DX: E11.65 Type 2 diabetes mellitus with hyperglycemia (principal); G47.30 Sleep apnea, unspecified; I10 Essential (primary) hypertension; I48.91 Unspecified atrial fibrillation; E78.00 Pure hypercholesterolemia, unspecified; I25.10 Atherosclerotic heart disease of native coronary artery without angina pectoris; Z79.84 Long term (current) use of oral hypoglycemic drugs; Z79.01 Long term (current) use of anticoagulants; Z79.82 Long term (current) use of aspirin; Z79.899 Other long term (current) drug therapy
CPT/HCPCS: 82947; 99281

== ENCOUNTER 2022-12-27 08:28 | Emergency (ER) | payer OTHER ==
[~2022-12-27] VITALS: Ht 182 cm; Wt 112.0 kg
[~2022-12-27 08:28] MED LIST changes: -AMIO200T6 PO; +AMIO200T65 PO
[2022-12-27] MEDS ORDERED: ASPIRIN 81 MG CHEW (CHILDREN'S ASA) PO ONE ×2 (08:45→09:00)
[2022-12-27 08:46] LABS: BASOPHILS % (AUTO) 0 % (0-10); EOSINOPHILS # (AUTO) 0.1 10^3/uL (0.0-0.3); EOSINOPHILS % (AUTO) 1 % (0-10); HEMATOCRIT 47 % (40-54); HEMOGLOBIN 15.9 g/dL (13.3-17.7); LYMPHOCYTES # (AUTO) 0.5 10^3/uL (1.0-4.0); LYMPHOCYTES % (AUTO) 6 % (12-44); MEAN CORPUSCULAR HEMOGLOBIN 30 pg (25-34); MEAN CORPUSCULAR HGB CONC 34 g/dL (32-36); MEAN CORPUSCULAR VOLUME 87 fL (80-99); MEAN PLATELET VOLUME 10.1 fL (9.0-12.2); MONOCYTES # (AUTO) 0.7 10^3/uL (0.0-1.0); MONOCYTES % (AUTO) 9 % (0-12); NEUTROPHILS # (AUTO) 7.4 10^3/uL (1.8-7.8); NEUTROPHILS % (AUTO) 85 % (42-75); PLATELET COUNT 187 10^3/uL (130-400); WHITE BLOOD COUNT 8.7 10^3/uL (4.3-11.0)
[2022-12-27] MEDS ORDERED: NS IV 500 ML 500 ML IV STA (08:50)
--- NOTE | 2022-12-27 08:54 | ED General ---
General Chief Complaint: General Problems/Pain Stated Complaint: VOMITING; DIAPHORESIS Nursing Triage Note: Patient has presented to ER with cc of palpitations. Patient reports that he went to work, was sweating, felt nauseated and did vomit and felt palpitations in his chest and throat. Source of Information: Patient, Old Records Exam Limitations: No Limitations History of Present Illness Date Seen by Provider: Dec 27, 2022 Time Seen by Provider: 08:29 Initial Comments 47-year-old male with past medical history of CAD, hypertension, diabetes, A-fib on Eliquis coming in due to palpitations and slight chest discomfort. He felt the palpitations around 7:30 AM this morning. He took his medications including his amiodarone and Eliquis around 7:50 in the morning. The palpitations stopped, but wanted to get checked out to make sure he was not in A-fib. Did have 1 episode of nonbloody nonbilious vomiting. His significant other just got over a GI bug and was vomiting as well recently. He denies any lower extremity swelling or pain, no prior history of DVT or PE, no recent surgery. He took 1 baby aspirin this morning. Allergies and Home Medications Allergies Coded Allergies: No Known Drug Allergies (Unverified , 07/06/16) Patient Home Medication List Home Medication List Reviewed: Yes Amiodarone HCl (Amiodarone HCl) 200 Mg Tablet, 200 MG PO DAILY, (Reported) Entered as Reported by: YANIV CALIX on 05/14/21 1452 Apixaban (Eliquis) 5 Mg Tablet, 5 MG PO BID, (Reported) Entered as Reported by: YANIV CALIX on 05/14/21 1452 Aspirin (Aspirin EC) 81 Mg Tablet.dr, 81 MG PO DAILY, (Reported) Entered as Reported by: JERRI ROSAS on 09/15/17 0934 Atorvastatin Calcium (Atorvastatin Calcium) 20 Mg Tablet, 20 MG PO HS, (Reported) Entered as Reported by: YANIV CALIX on 05/14/21 1452 Cefdinir (Cefdinir) 300 Mg Capsule, 300 MG PO BID Prescribed by: KENDY TORREZ on 05/16/21 1229 Dexamethasone (Decadron) 6 Mg Tablet, 6 MG PO DAILY Prescribed by: KENDY TORREZ on 05/16/21 1229 Diltiazem HCl (Cartia Xt) 120 Mg Cap.er.24h, 120 MG PO 1900, (Reported) Entered as Reported by: YANIV CALIX on 05/14/21 1452 Glipizide (Glipizide) 5 Mg Tablet, 5 MG PO DAILY@0630 Prescribed by: KENDY TORREZ on 05/16/21 1229 Glyburide (Glyburide) 1.25 Mg Tablet, 1.25 MG PO BID, (Reported) Entered as Reported by: JERRI ROSAS on 09/15/17 0934 Hydrochlorothiazide (Hydrochlorothiazide) 25 Mg Tablet, 25 MG PO DAILY, (Reported) Entered as Reported by: YANIV CALIX on 05/14/21 1452 Lisinopril (Lisinopril) 40 Mg Tablet, 40 MG PO 1900, (Reported) Entered as Reported by: JERRI ROSAS on 05/23/19 0948 Metformin HCl (Metformin HCl) 1,000 Mg Tablet, 1,000 MG PO BID, (Reported) Entered as Reported by: YANIV CALIX on 05/14/21 1452 Metoprolol Succinate (Metoprolol Succinate) 100 Mg Tab.er.24h, 100 MG PO DAILY, (Reported) Entered as Reported by: JERRI ROSAS on 05/23/19 0948 Multivitamin (Multivitamins) 1 Each Tablet, 1 TAB PO DAILY, (Reported) Entered as Reported by: JERRI ROSAS on 05/23/19 0948 Review of Systems Review of Systems Constitutional: No fever EENTM: no symptoms reported Respiratory: no symptoms reported Cardiovascular: see HPI Gastrointestinal: see HPI Past Cuijmzr-Qwgqzc-Rewkuf Hx Patient Social History Tobacco Use?: Yes Substance use?: No Alcohol Use?: No Pt feels they are or have been: No Immunizations Up To Date Tetanus Booster (TDap): Unknown Seasonal Allergies Seasonal Allergies: No Past Medical History Surgery/Hospitalization HX: Cath with 1 stent placed 2017 April 2019 loop recorder for A-fib Surgeries: Yes (CARDIAC CATH--STENT X 1) Cardiac, Coronary Stent Respiratory: No Sleep Apnea Currently Using CPAP: Yes Currently Using BIPAP: No Cardiac: Yes (CARDIAC STENT X1) Atrial Fibrillation, Coronary Artery Disease, High Cholesterol, Hypertension Neurological: No Reproductive Disorders: No Genitourinary: No Gastrointestinal: No Musculoskeletal: Yes Fractures Endocrine: Yes Diabetes, Non-Insulin dep HEENT: No Loss of Vision: Denies Cancer: No Psychosocial: No Integumentary: No Blood Disorders: No Family Medical History Not obtainable due to adoption No Pertinent Family Hx Physical Exam Vital Signs Vital Signs - First Documented 12/27/22 08:43 Temp 36.7 Pulse 78 Resp 20 B/P (MAP) 146/87 (106) Pulse Ox 95 O2 Delivery Room Air Capillary Refill : Height, Weight, BMI Height: 6'2.00" Weight: 238lbs. 0.0oz. 107.340023hn; 33.00 BMI Method:Stated General Appearance: No Apparent Distress, WD/WN HEENT: PERRL/EOMI, Normal ENT Inspection, Pharynx Normal Neck: Full Range of Motion, Normal Inspection, Non Tender, Supple Respiratory: Chest Non Tender, Lungs Clear, Normal Breath Sounds, No Accessory Muscle Use, No Respiratory Distress Cardiovascular: Regular Rate, Rhythm, No Edema, Normal Peripheral Pulses Gastrointestinal: Normal Bowel Sounds, Non Tender, Soft; No Distended, No Guarding Back: Normal Inspection, No CVA Tenderness Extremity: Normal Capillary Refill, Normal Inspection, Normal Range of Motion, Non Tender, No Calf Tenderness Neurologic/Psychiatric: Alert, No Motor/Sensory Deficits, Normal Mood/Affect Skin: Normal Color, Warm/Dry Progress/Results/Core Measures Suspected Sepsis SIRS Temperature: Pulse: 78 Respiratory Rate: 20 Laboratory Tests 12/27/22 08:38: White Blood Count 8.7 Blood Pressure 146 /87 Mean: 106 Laboratory Tests 12/27/22 08:38: Creatinine 0.93, INR Comment 0.9, Platelet Count 187, Total Bilirubin 0.5 Results/Orders Lab Results Laboratory Tests Test 12/27/22 08:38 12/27/22 09:48 Range/Units White Blood Count 8.7 4.3-11.0 10^3/uL Red Blood Count 5.35 4.30-5.52 10^6/uL Hemoglobin 15.9 13.3-17.7 g/dL Hematocrit 47 40-54 % Mean Corpuscular Volume 87 80-99 fL Mean Corpuscular Hemoglobin 30 25-34 pg Mean Corpuscular Hemoglobin Concent 34 32-36 g/dL Red Cell Distribution Width 12.8 10.0-14.5 % Platelet Count 187 130-400 10^3/uL Mean Platelet Volume 10.1 9.0-12.2 fL Immature Granulocyte % (Auto) 0 % Neutrophils (%) (Auto) 85 H 42-75 % Lymphocytes (%) (Auto) 6 L 12-44 % Monocytes (%) (Auto) 9 0-12 % Eosinophils (%) (Auto) 1 0-10 % Basophils (%) (Auto) 0 0-10 % Neutrophils # (Auto) 7.4 1.8-7.8 10^3/uL Lymphocytes # (Auto) 0.5 L 1.0-4.0 10^3/uL Monocytes # (Auto) 0.7 0.0-1.0 10^3/uL Eosinophils # (Auto) 0.1 0.0-0.3 10^3/uL Basophils # (Auto) 0.0 0.0-0.1 10^3/uL Immature Granulocyte # (Auto) 0.0 0.0-0.1 10^3/uL Neutrophils % (Manual) 89 % Lymphocytes % (Manual) 7 % Monocytes % (Manual) 4 % Prothrombin Time 12.9 12.2-14.7 SEC INR Comment 0.9 0.8-1.4 Activated Partial Thromboplast Time 26 24-35 SEC Sodium Level 139 135-145 MMOL/L Potassium Level 4.0 3.6-5.0 MMOL/L Chloride Level 101 98-107 MMOL/L Carbon Dioxide Level 23 21-32 MMOL/L Anion Gap 15 H 5-14 MMOL/L Blood Urea Nitrogen 12 7-18 MG/DL Creatinine 0.93 0.60-1.30 MG/DL Estimat Glomerular Filtration Rate 101 BUN/Creatinine Ratio 13 Glucose Level 199 H 70-105 MG/DL Calcium Level 9.1 8.5-10.1 MG/DL Corrected Calcium 8.8 8.5-10.1 MG/DL Magnesium Level 2.0 1.6-2.4 MG/DL Total Bilirubin 0.5 0.1-1.0 MG/DL Aspartate Amino Transf (AST/SGOT) 14 5-34 U/L Alanine Aminotransferase (ALT/SGPT) 23 0-55 U/L Alkaline Phosphatase 82 40-136 U/L Troponin I < 0.30 <0.30 NG/ML Pro-B-Type Natriuretic Peptide < 36.0 <125.0 PG/ML Total Protein 7.2 6.4-8.2 GM/DL Albumin 4.4 3.2-4.5 GM/DL Lipase 45 8-78 U/L My Orders Orders - LESLY PERES MD Cbc With Automated Diff (12/27/22 08:40) Magnesium (12/27/22 08:40) Chest 1 View Ap/Pa Only (12/27/22 08:40) Ekg Tracing (12/27/22 08:40) Comprehensive Metabolic Panel (12/27/22 08:40) Protime With Inr (12/27/22 08:40) Partial Thromboplastin Time (12/27/22 08:40) O2 (12/27/22 08:40) Monitor-Rhythm Ecg Trace Only (12/27/22 08:40) Ed Iv/Invasive Line Start (12/27/22 08:40) Lipase (12/27/22 08:40) Troponin I Fs (12/27/22 08:40) Probnp Fs (12/27/22 08:40) Manual Differential (12/27/22 08:38) Aspirin Chewable Tablet (Baby Aspirin Ch (12/27/22 09:00) Ondansetron Injection (Zofran Injectio (12/27/22 09:00) Ns Iv 500 Ml (Sodium Chloride 0.9%) (12/27/22 08:50) Troponin I Fs (12/27/22 09:45) Medications Given in ED Current Medications Medications Dose Ordered Sig/Cayden Route Start Time Stop Time Status Last Admin Dose Admin Aspirin 243 mg ONCE ONCE PO 12/27/22 09:00 12/27/22 09:01 DC 12/27/22 08:56 243 MG Ondansetron HCl 4 mg ONCE ONCE IVP 12/27/22 09:00 12/27/22 09:01 DC 12/27/22 08:56 4 MG Vital Signs/I&O 12/27/22 08:43 Temp 36.7 Pulse 78 Resp 20 B/P (MAP) 146/87 (106) Pulse Ox 95 O2 Delivery Room Air Capillary Refill : Blood Pressure Mean: 106 Progress Note : Progress Note 47-year-old male with above history coming in due to palpitations and slight chest discomfort. ABCs were intact and vitals were stable on presentation. Physical exam reassuring with no acute abnormalities, specifically no clinical signs of a DVT. EKG ordered and interpreted by me showing no acute ischemic changes, appears similar to prior EKG. He was given aspirin, IV fluids, and nausea medications. Chest x-ray ordered and interpreted by me showing no pneumothorax, normal cardiac silhouette, no obvious pneumonia. An IV was placed and basic labs were obtained including cardiac biomarkers. His troponin was negative x2, BNP normal, normal creatinine, normal hemoglobin. Clinically, symptoms likely were related to him being in A-fib earlier, and then he took his appropriate medications and likely went back into sinus rhythm prior to getting to the ER. Is also possible he has a GI illness given his significant other recently had the same illness. Does not seem consistent with ACS. PE very unlikely given he has not missed any doses of his Eliquis. Overall he is well- appearing and I believe stable for discharge with outpatient follow-up. He was sent home with strict return precautions. ECG Initial ECG Impression Date: Dec 27, 2022 Initial ECG Impression Time: 08:39 Initial ECG Rate: 74 Initial ECG Rhythm: Normal Sinus Comment Narrow QRS, normal axis, no significant ST changes or T wave abnormalities, appears similar to prior EKG Diagnostic Imaging Diagonstic Imaging: Xray (chest) Comments [facility] [place], [place] NAME: MAURICIO HARRINGTON [facility] REC#: [id number] PT STATUS: REG ER : 1975 PHYSICIAN: LESLY PERES MD ADMIT DATE: 12/27/22/ER FS Signed Date of Exam:12/27/22 CHEST 1 VIEW AP/PA ONLY CHEST 1 VIEW AP/PA ONLY INDICATION: chest pain. COMPARISON: Chest radiograph on 05/16/2021. FINDINGS: Lungs: Normal lung volume. No focal consolidation. Stable pulmonary vasculature. Pleura: No pleural effusion or pneumothorax. Heart and Mediastinum: Cardiomediastinal silhouette and great vessels of the thorax are stable. Osseous Structures and Soft Tissues: No acute osseous abnormality. Normal soft tissues. IMPRESSION: No acute cardiopulmonary process. Dictated by: Dictated on workstation # [id number] Dict: 12/27/22 0909 Trans: 12/27/22 0910 [facility] [id number] Interpreted by: JANELL OLIVEIRA DO Electronically signed by: JANELL OLIVEIRA DO 12/27/22 0910 Departure Impression Primary Impression: Palpitations Additional Impressions: Paroxysmal A-fib Chest pain Qualified Codes: R07.82 - Intercostal pain Disposition: HOME, SELF-CARE Condition: Improved Departure-Patient Inst. Decision time for Depature: 10:25 Referrals: NADEGE SANTA MD (PCP/Family) Primary Care Physician Patient Instructions: Chest Pain, Adult ED Add. Discharge Instructions: We suspect that you are in A-fib this morning, and that is the feeling you had in your chest. Your medications likely put you back into sinus rhythm. It is also possible you have a GI bug that your significant other had. Nausea medicines will be sent to your pharmacy. Please follow-up with your cardiolo gist as well. If you have any life-threatening concerns, then of course please come to the ER. Scripts Ondansetron (Ondansetron Odt) 4 Mg Tab.rapdis 4 MG SL Q6H PRN for NAUSEA/VOMITING for 5 Days, #20 TAB Prov: LESLY PERES MD 12/27/22 Work/School Note: Family Work Note, Patient Received Medical Care In the Emergency Department On: Dec 27, 2022 Patient Will Be Able to Return to Work/School On: Dec 28, 2022 Work Release Form Date Seen in the Emergency Department: Dec 27, 2022 Return to Work: Dec 28, 2022 Restrictions: No Restrictions LESLY PERES MD Dec 27, 2022 08:54
[2022-12-27 08:55] LABS: INR 0.9 (0.8-1.4); PROTHROMBIN TIME PATIENT 12.9 SEC (12.2-14.7)
[2022-12-27 08:57] LABS: ALANINE AMINOTRANSFERASE 23 U/L (0-55); ALBUMIN 4.4 GM/DL (3.2-4.5); ALKALINE PHOSPHATASE 82 U/L (40-136); BILIRUBIN,TOTAL 0.5 MG/DL (0.1-1.0); BUN/CREATININE RATIO 13; CALCIUM 9.1 MG/DL (8.5-10.1); CARBON DIOXIDE 23 MMOL/L (21-32); CHLORIDE 101 MMOL/L (98-107); CREATININE SERUM 0.93 MG/DL (0.60-1.30); GFR ESTIMATED 101; GLUCOSE 199 MG/DL (70-105); LIPASE 45 U/L (8-78); SODIUM 139 MMOL/L (135-145); TOTAL PROTEIN 7.2 GM/DL (6.4-8.2)
[2022-12-27] MEDS ORDERED: ONDANSETRON 4 MG/2 ML (SDV) Z0FRAN IVP ONE (09:00)
--- NOTE | 2022-12-27 09:11 | Diagnostic Imaging Report ---
CHEST 1 VIEW AP/PA ONLY INDICATION: chest pain. COMPARISON: Chest radiograph on 05/16/2021. FINDINGS: Lungs: Normal lung volume. No focal consolidation. Stable pulmonary vasculature. Pleura: No pleural effusion or pneumothorax. Heart and Mediastinum: Cardiomediastinal silhouette and great vessels of the thorax are stable. Osseous Structures and Soft Tissues: No acute osseous abnormality. Normal soft tissues. IMPRESSION: No acute cardiopulmonary process. Dictated by: Dictated on workstation # [id number]
[2022-12-27 09:19] LABS: LYMPHOCYTES % (MANUAL) 7 %; MONOCYTES % (MANUAL) 4 %; NEUTROPHILS % (MANUAL) 89 %
[2022-12-27] MEDS ORDERED: ONDA4TAB11 SL (10:10)
[2022-12-27 10:24] VITALS: BP 128/86
== END 2022-12-27 10:20 | disposition home or self-care (01) ==
LOC: EDUNIT# 08:28 → ER FS 08:29
DX: I48.0 Paroxysmal atrial fibrillation (principal); R12 Heartburn; G47.30 Sleep apnea, unspecified; F17.200 Nicotine dependence, unspecified, uncomplicated; Z79.02 Long term (current) use of antithrombotics/antiplatelets; Z99.89 Dependence on other enabling machines and devices
CPT/HCPCS: 36415; 71045; 80053; 83690; 83735; 83880; 84484; 85007; 85027; 85610; 85730; 93005; 93041